=== PATIENT | female | born 1980 | race Caucasian/White ===

== ENCOUNTER 2020-08-07 03:31 | Emergency (ER) | payer OTHER ==
--- OUTSIDE RECORDS SUMMARY | 2020-08-07 03:33 | XMS REPORT | Continuity of Care Document ---
:1980 Author Organization [facility] t Address [address] [place] [address] Care Team Providers Name Role Phone Unavailable Unavailable Unavailable Payers Payer Name Policy Type Policy Number Effective Date Expiration Date S ource Problems This patient has no known problems. Allergies, Adverse Reactions, Alerts This patient has no known allergies or adverse reactions. Medications This patient has no known medications. Procedures This patient has no known procedures. Results This patient has no known results.
--- NOTE | 2020-08-07 04:41 | EDPHYS ---
Physician Documentation [facility] Name: Melissa Leavitt Age: 39 yrs Sex: Female : 1980 Arrival Date: 08/07/2020 Time: 03:35 Bed 17 Private MD: ED Physician Aj Guevara HPI: 08/07 04:26 This 39 yrs old Female presents to ER via Ambulatory with complaints of rn Anxiety. 04:26 The patient presents to the emergency department with anxiety. Onset: The rn symptoms/episode began/occurred just prior to arrival. Associated signs and symptoms: Pertinent positives; anxiety, Pertinent negatives: fever, hallucinations, homicidal ideation, suicide ideation. Severity of symptoms: At their worst the symptoms were moderate. The patient has experienced similar episodes in the past. The patient has been recently seen by a physician:. Reports woke up with panic attack, took xanax, didn't work immediately so called her psychiatrist and came here. Feels better and is sleepy, but is wondering if needs name brand xanax. She just saw her psychiatrist last week.. Historical: - Allergies: 03:50 PENICILLINS; em - PMHx: 03:50 None; em - PSHx: 03:50 Hysterectomy; em - Immunization history:: Adult Immunizations up to date. - Social history:: Smoking status: Patient denies any tobacco usage or history of. - Family history:: not pertinent. - Hospitalizations: : No recent hospitalization is reported. ROS: 04:26 Constitutional: Negative for fever, chills, and weight loss, Cardiovascular: Negative rn for chest pain, and edema, Respiratory: Negative for shortness of breath, cough, wheezing, and pleuritic chest pain, Abdomen/GI: Negative for abdominal pain, nausea, vomiting, diarrhea, and constipation, MS/Extremity: Negative for injury and deformity, Skin: Negative for injury, rash, and discoloration, Neuro: Negative for headache, weakness, numbness, tingling, and seizure, Psych: Negative for suicide ideation, homicidal ideation, and hallucinations. Exam: 04:26 Constitutional: This is a well developed, well nourished patient sleeping, have to rn wake her up to speak to her. Psych: Awake, slurred speech, normal affect Vital Signs: 03:45 BP 109 / 87; Pulse 106; Resp 18; Temp 97.8; Pulse Ox 99% on R/A; Weight 71.21 kg; em Height 5 ft. 6 in. (167.64 cm); Pain 0/10; 04:30 BP 108 / 77; Pulse 103; Resp 18 S; Pulse Ox 96% on R/A; ad5 03:45 Body Mass Index 25.34 (71.21 kg, 167.64 cm) em MDM: 03:44 Patient medically screened. rn 04:26 Differential diagnosis: depression, anxiety. Data reviewed: vital signs, nurses notes, rn and as a result, I will discharge patient. Counseling: I had a detailed discussion with the patient and/or guardian regarding: the historical points, exam findings, and any diagnostic results supporting the discharge/admit diagnosis, the need for outpatient follow up, to return to the emergency department if symptoms worsen or persist or if there are any questions or concerns that arise at home. Special discussion: I discussed with the patient/guardian in detail that at this point there is no indication for admission to the hospital. It is understood, however, that if the symptoms persist or worsen the patient needs to return immediately for re-evaluation. Based on the history and exam findings, there is no indication for further emergent testing or inpatient evaluation. I discussed with the patient/guardian the need to see the psychiatrist for further evaluation of the symptoms. ED course: Pt already sleeping and slurred speech after taking her own xanax, states has a ride, will not give any other medication since her panic attack is over, and recommend she sees her psychiatrist. . Administered Medications: No medications were administered Disposition: 08/07/20 04:39 Discharged to Home. Impression: Anxiety disorder, unspecified. - Condition is Stable. - Discharge Instructions: Panic Attacks, Generalized Anxiety Disorder. - Medication Reconciliation Form, Thank You Letter, Antibiotic Education, Prescription Opioid Use form. - Follow up: Nabor Quintanilla MD; When: As needed; Reason: Recheck today's complaints, Re-evaluation by your physician. - Problem is an ongoing problem. - Symptoms have improved. Signatures: Chema Piedra RN RN em Aj Guevara MD MD designer and patternmaker: (The following items were deleted from the chart) 04:45 04:39 08/07/2020 04:39 Discharged to Home. Impression: Anxiety disorder, unspecified. em Condition is Stable. Forms are Medication Reconciliation Form, Thank You Letter, Antibiotic Education, Prescription Opioid Use. Follow up: Nabor Quintanilla; When: As needed; Reason: Recheck today's complaints, Re-evaluation by your physician. Problem is an ongoing problem. Symptoms have improved. rn
--- NOTE | 2020-08-07 04:41 | ER ---
Nurse's Notes [facility] Name: Melissa Leavitt Age: 39 yrs Sex: Female : 1980 Arrival Date: 08/07/2020 Time: 03:35 Bed 17 Private MD: Diagnosis: Anxiety disorder, unspecified Presentation: 08/07 03:45 Chief complaint: Patient states: mother's anniversary is coming up, has to have a em hysterectomy done because she has several tumors, also has problems at work, has been feeling anxious and crying, also reports heart palpitations, denies HI/SI. Coronavirus screen: Client denies travel out of the [place] in the last 14 days. Ebola Screen: Patient negative for fever greater than or equal to 101.5 degrees Fahrenheit, and additional compatible Ebola Virus Disease symptoms Patient denies exposure to infectious person. Patient denies travel to an Ebola-affected area in the 21 days before illness onset. No symptoms or risks identified at this time. Initial Sepsis Screen: Does the patient meet any 2 criteria? No. Patient's initial sepsis screen is negative. Does the patient have a suspected source of infection? No. Patient's initial sepsis screen is negative. Risk Assessment: Do you want to hurt yourself or someone else? Patient reports no desire to harm self or others. Onset of symptoms was August 07, 2020. 03:45 Method Of Arrival: Ambulatory em 03:45 Acuity: FRIDA 3 em Historical: - Allergies: 03:50 PENICILLINS; em - PMHx: 03:50 None; em - PSHx: 03:50 Hysterectomy; em - Immunization history:: Adult Immunizations up to date. - Social history:: Smoking status: Patient denies any tobacco usage or history of. - Family history:: not pertinent. - Hospitalizations: : No recent hospitalization is reported. Screenin:01 Abuse screen: Denies threats or abuse. Denies injuries from another. Nutritional ad5 screening: No deficits noted. Tuberculosis screening: No symptoms or risk factors identified. Fall Risk None identified. Assessment: 03:51 General: Appears distressed, Behavior is cooperative, anxious, crying. Pain: Denies ad5 pain. Neuro: Level of Consciousness is awake, alert, obeys commands, Oriented to person, place, time, situation, Appropriate for age. Cardiovascular: Capillary refill < 3 seconds Patient's skin is warm and dry. Respiratory: Airway is patent Respiratory effort is even, unlabored, Respiratory pattern is regular, symmetrical. GI: No deficits noted. No signs and/or symptoms were reported involving the gastrointestinal system. : No deficits noted. No signs and/or symptoms were reported regarding the genitourinary system. EENT: No deficits noted. No signs and/or symptoms were reported regarding the EENT system. Derm: Skin is pink, warm \T\ dry. Musculoskeletal: No deficits noted. No signs and/or symptoms reported regarding the musculoskeletal system. 03:52 Reassessment: Pt reports increased anxiety d/t stressors of work, family, and health. ad5 Denies SI/HI. Pt tearful, cooperative with staff. Reports taking alprazolam at home with minimal relief. 04:40 Reassessment: Patient appears in no apparent distress at this time. Patient is alert, ad5 oriented x 3, equal unlabored respirations, skin warm/dry/pink. General: Appears in no apparent distress. Behavior is calm, cooperative, appropriate for age. Vital Signs: 03:45 BP 109 / 87; Pulse 106; Resp 18; Temp 97.8; Pulse Ox 99% on R/A; Weight 71.21 kg; em Height 5 ft. 6 in. (167.64 cm); Pain 0/10; 04:30 BP 108 / 77; Pulse 103; Resp 18 S; Pulse Ox 96% on R/A; ad5 03:45 Body Mass Index 25.34 (71.21 kg, 167.64 cm) em ED Course: 03:35 Patient arrived in ED. bp1 03:43 Avery Leal is Primary Nurse. ad5 03:44 Aj Guevara MD is Attending Physician. rn 03:49 Patient has correct armband on for positive identification. Bed in low position. Call ad5 light in reach. Side rails up X 1. Pulse ox on. NIBP on. Door closed. Noise minimized. Warm blanket given. 03:50 Triage completed. em 03:50 Arm band placed on. em 04:36 No provider procedures requiring assistance completed. Patient did not have IV access em during this emergency room visit. 04:39 Nabor Quintanilla MD is Referral Physician. rn Administered Medications: No medications were administered Outcome: 04:39 Discharge ordered by . rn 04:45 Discharged to home ambulatory. em 04:45 Condition: stable 04:45 Discharge instructions given to patient, Instructed on discharge instructions, follow up and referral plans. Demonstrated understanding of instructions, follow-up care. 04:45 Patient left the ED. em Signatures: Chema Piedra RN RN em Nieto, Roman, MD MD rn Paniauga, Brittany bp1 Davidson, Andrea ad5
[2020-08-07 04:53] VITALS: BP 109/87; TEMP 97.8; O2SAT 99
== END 2020-08-07 04:45 | disposition home or self-care (01) ==
LOC: ER 03:31
DX: F41.9 Anxiety disorder, unspecified (principal); Z88.0 Allergy status to penicillin

== ENCOUNTER 2020-08-26 22:05 | Emergency (ER) | payer OTHER ==
--- OUTSIDE RECORDS SUMMARY | 2020-08-26 22:13 | XMS REPORT | Continuity of Care Document ---
:1980 Author Organization [facility] t Address [address] [place] [address] Care Team Providers Name Role Phone Unavailable [...]
--- NOTE | 2020-08-26 22:42 | ER ---
Nurse's Notes [facility] Name: Melissa Leavitt Age: 39 yrs Sex: Female : 1980 Arrival Date: 08/26/2020 Time: 22:06 Bed Waiting Private MD: Diagnosis: ED Course: 08/26 22:06 Patient arrived in ED. ag3 22:41 Patient's name was called from ER lobby. No response. Unable to locate patient. Will bb disposition as left without being seen by a provider. Administered Medications: No medications were administered Outcome: 22:41 Patient left the ED. bb Signatures: Samantha Nogueira RN RN bb Monica Junior ag3
== END 2020-08-26 22:41 | disposition left against medical advice (07) ==
LOC: ER 22:05
DX: Z02.9 Encounter for administrative examinations, unspecified (principal)

== ENCOUNTER 2020-11-28 11:00 | Emergency (ER) | payer OTHER ==
--- NOTE | 2020-11-28 11:43 | EDPHYS ---
Physician Documentation [facility] Name: Melissa Leavitt Age: 40 yrs Sex: Female : 1980 Arrival Date: 11/28/2020 Time: 11:06 Bed 25 Private MD: ED Physician Aj Guevara HPI: 11/28 11:53 This 40 yrs old Female presents to ER via Ambulatory with complaints of Right pm1 Leg Swelling. 11:53 the patient presents with a swollen area of the right voss. Description: raised. Onset: pm1 The symptoms/episode began/occurred yesterday. Possible cause(s): Picking and squeezing at right voss area. Patient reports that she has possible cyst at location. Associated signs and symptoms: Pertinent positives: swelling, Pertinent negatives: discharge, fever. Modifying factors: the symptoms are alleviated by nothing, the symptoms are aggravated by touching, Squeezing and scratching. Severity of symptoms: in the emergency department the symptoms are unchanged. The patient has not experienced similar symptoms in the past. The patient has not recently seen a physician. Historical: - Allergies: 11:22 PENICILLINS; ll1 - PMHx: 11:22 None; ll1 - PSHx: 11:22 hysterectomy; ll1 - Immunization history:: Client reports receiving the 1st dose of the Covid vaccine. - Social history:: Smoking status: Patient reports the use of cigarette tobacco products, denies chronic smoking, but will smoke occasionally. ROS: 11:53 Constitutional: Negative for fever, chills, and weight loss, Cardiovascular: Negative pm1 for chest pain, palpitations, and edema, Respiratory: Negative for shortness of breath, cough, wheezing, and pleuritic chest pain, MS/Extremity: Negative for injury and deformity. 11:53 Neuro: Negative for headache, weakness, numbness, tingling, and seizure. 11:53 Skin: Positive for abrasion(s), of the right voss. 11:53 All other systems are negative. Exam: 11:53 Constitutional: This is a well developed, well nourished patient who is awake, alert, pm1 and in no acute distress. Head/Face: Normocephalic, atraumatic. 11:53 Cardiovascular: Exam negative for acute changes, Rate: normal, Rhythm: regular, Pulses: no pulse deficits are appreciated. 11:53 Respiratory: Exam negative for acute changes, respiratory distress, shortness of breath. 11:53 Abdomen/GI: Exam negative for acute changes, Inspection: abdomen appears normal, Palpation: abdomen is soft and non-tender, in all quadrants. 11:53 Skin: Appearance: normal except for affected area, swelling, noted on the right voss, Mild and located underneath abrasion. 11:53 Neuro: Exam negative for acute changes, Orientation: is normal, Motor: is normal, moves all fours. 12:15 Skin: Patient's area of abrasion and swelling needle aspirated, no purulent drainage pm1 present. Vital Signs: 11:21 BP 123 / 92; Pulse 92; Resp 17; Temp 98.2; Pulse Ox 97% ; Weight 77.11 kg; Height 5 ft. ll1 6 in. (167.64 cm); Pain 03/02; 11:21 Body Mass Index 27.44 (77.11 kg, 167.64 cm) ll1 MDM: 11:40 Data reviewed: vital signs. Data interpreted: Pulse oximetry: on room air is 97 %. pm1 Interpretation: normal. Counseling: I had a detailed discussion with the patient and/or guardian regarding: the historical points, exam findings, and any diagnostic results supporting the discharge/admit diagnosis, the need for outpatient follow up, to return to the emergency department if symptoms worsen or persist or if there are any questions or concerns that arise at home. 11:43 Patient medically screened. pm1 Administered Medications: No medications were administered Disposition: 17:31 Co-signature as Attending Physician, Aj Guevara MD I agree with the assessment and rn plan of care. Disposition Summary: 11/28/20 11:43 Discharge Ordered Location: Home pm1 Problem: new pm1 Symptoms: have improved pm1 Condition: Stable pm1 Diagnosis - Phlegmon of right lower extremity pm1 - Abrasion, left lower leg pm1 Followup: pm1 - With: Emergency Department - When: As needed - Reason: Worsening of condition Followup: pm1 - With: Private Physician - When: 2 - 3 days - Reason: Recheck today's complaints, Continuance of care, Re-evaluation by your physician Discharge Instructions: - Discharge Summary Sheet pm1 - Abrasion pm1 Forms: - Medication Reconciliation Form pm1 - Thank You Letter pm1 - Antibiotic Education pm1 - Prescription Opioid Use pm1 Prescriptions: - mupirocin 2 % Topical ointment - apply 1 application by TOPICAL route 3 times per day for 10 days; 1 tube; pm1 Refills: 0, Product Selection Permitted - Bactrim DS 800-160 mg Oral Tablet - take 1 tablet by ORAL route every 12 hours for 10 days; 20 tablet; Refills: 0, pm1 Product Selection Permitted Signatures: Aj Guevara MD MD rn Marinas, Patrick, NP [employer] SUPERVISOR pm1 Priscilla Phillips RN RN ll1
--- NOTE | 2020-11-28 11:43 | ER ---
Nurse's Notes [facility] Name: Melissa Leavitt Age: 40 yrs Sex: Female : 1980 Arrival Date: 11/28/2020 Time: 11:06 Bed 25 Private MD: Diagnosis: Phlegmon of right lower extremity;Abrasion, left lower leg Presentation: 11/28 11:21 Chief complaint: Patient states: Picking at RLE yesterday, top layer of skin came off. ll1 Pain, redness, swelling to small spot on RLE today. Coronavirus screen: Vaccine status: Patient reports receiving the 1st dose of the Covid vaccine. Client denies travel out of the [place] in the last 14 days. At this time, the client does not indicate any symptoms associated with coronavirus-19. Ebola Screen: Patient denies travel to an Ebola-affected area in the 21 days before illness onset. Initial Sepsis Screen: Does the patient meet any 2 criteria? HR > 90 bpm. No. Patient's initial sepsis screen is negative. Does the patient have a suspected source of infection? Yes: Skin breakdown/wound. Risk Assessment: Do you want to hurt yourself or someone else? Patient reports no desire to harm self or others. Onset of symptoms was November 27, 2020. 11:21 Method Of Arrival: Ambulatory ll1 11:21 Acuity: FRIDA 4 ll1 Triage Assessment: 11:43 General: Appears in no apparent distress. Behavior is calm, cooperative, appropriate oh for age. Historical: - Allergies: 11:22 PENICILLINS; ll1 - PMHx: 11:22 None; ll1 - PSHx: 11:22 hysterectomy; ll1 - Immunization history:: Client reports receiving the 1st dose of the Covid vaccine. - Social history:: Smoking status: Patient reports the use of cigarette tobacco products, denies chronic smoking, but will smoke occasionally. Screenin:42 Abuse screen: Denies threats or abuse. Nutritional screening: No deficits noted. oh Tuberculosis screening: No symptoms or risk factors identified. Fall Risk None identified. Assessment: 11:39 Derm: small papular like spot on lower right leg. pt states when she bends she feels a oh raise. pt reports minimal swelling in that area Reports. Vital Signs: 11:21 BP 123 / 92; Pulse 92; Resp 17; Temp 98.2; Pulse Ox 97% ; Weight 77.11 kg; Height 5 ft. ll1 6 in. (167.64 cm); Pain 1/10; 11:21 Body Mass Index 27.44 (77.11 kg, 167.64 cm) 1 ED Course: 11:06 Patient arrived in ED. ja2 11:22 Triage completed. ll1 11:23 Arm band placed on Patient placed in an exam room, on a stretcher. ll1 11:26 Casey Palencia NP is PHCP. pm1 11:26 Aj Guevara MD is Attending Physician. pm1 11:28 Juliann Pat, RN is Primary Nurse. oh 11:43 Bed in low position. Call light in reach. oh 11:56 Patient did not have IV access during this emergency room visit. oh Administered Medications: No medications were administered Outcome: 11:43 Discharge ordered by MD. pm1 11:56 Discharged to home oh 11:56 Condition: good 11:56 Discharge instructions given to patient, Prescriptions given X 2. 11:56 Patient left the ED. oh Signatures: Casey Palencia NP SUB ASSEMBLY TEAM WORKER pm1 Priscilla Phillips, RN RN 1 Jennifer Loving 2 Juliann Pat, RN RN oh
[2020-11-28 12:02] VITALS: BP 123/92; TEMP 98.2; O2SAT 97
== END 2020-11-28 11:56 | disposition home or self-care (01) ==
LOC: ER 11:00
DX: L02.415 Cutaneous abscess of right lower limb (principal); S80.812A Abrasion, left lower leg, initial encounter; X58.XXXA Exposure to other specified factors, initial encounter; Y93.9 Activity, unspecified; Z88.0 Allergy status to penicillin; F17.210 Nicotine dependence, cigarettes, uncomplicated
CPT/HCPCS: 99282

== ENCOUNTER 2020-12-03 07:59 | Emergency (ER) | payer OTHER ==
[2020-12-03 08:57] LABS: Absolute Lymphocytes (CBC) 1.9 K/uL (0.7-4.9); Hematocrit 42.1 % (36.0-45.0); Lymphocytes % 30.1 % (15.3-44.8); MPV 7.3 fL (7.6-11.3)
[2020-12-03 09:04] LABS: Protime INR 0.91
--- NOTE | 2020-12-03 09:17 | RAD REPORT ---
EXAM DESCRIPTION: RAD - Chest Single View - 12/03/2020 9:08 am CLINICAL HISTORY: PALPITATIONS COMPARISON: No comparisons FINDINGS: Lines: None. Lungs: No evidence of edema or pneumonia. Pleural: No significant pleural effusions or pneumothorax. Cardiac: The heart size is within normal limits. Bones: No acute fractures. Other: IMPRESSION: No acute cardiopulmonary disease.
[2020-12-03 09:18] LABS: ALT/SGPT 24 U/L (12-78); AST/SGOT 16 U/L (15-37); Albumin 3.9 g/dL (3.4-5.0); Alkaline Phosphatase 80 U/L (45-117); BUN Blood Urea Nitrogen 15 mg/dL (7-18); Bicarbonate 29 mmol/L (21-32); Bilirubin Direct < 0.1 mg/dL (0-0.2); Bilirubin Total 0.3 mg/dL (0.2-1.0); Glucose Level 103 mg/dL (74-106); Magnesium 2.3 mg/dL (1.8-2.4); NT PRO-BNP 68 pg/mL (<125); Potassium 3.6 mmol/L (3.5-5.1); Protein, Total 7.4 g/dL (6.4-8.2); Sodium Level 138 mmol/L (136-145); Troponin (Emerg Dept Use Only) < 0.02 ng/mL (0.0-0.045)
--- NOTE | 2020-12-03 09:22 | ER ---
Nurse's Notes [facility] Name: Melissa Leavitt Age: 40 yrs Sex: Female : 1980 Arrival Date: 12/03/2020 Time: 08:02 Bed 5 Private MD: Diagnosis: Palpitations;Anxiety disorder, unspecified Presentation: 12/03 08:25 Chief complaint: Patient states: 7:40 am today while getting to her first job site, she ll1 had sudden onset of feeling shaky, fast HR, chest pressure, sweaty. States she has a psychiatry appt at 10 she needs to get to. Coronavirus screen: Vaccine status: Patient reports receiving the 2nd dose of the covid vaccine. Client denies travel out of the [place] in the last 14 days. At this time, the client does not indicate any symptoms associated with coronavirus-19. Ebola Screen: Patient denies travel to an Ebola-affected area in the 21 days before illness onset. Initial Sepsis Screen: Does the patient meet any 2 criteria? No. Patient's initial sepsis screen is negative. Does the patient have a suspected source of infection? No. Patient's initial sepsis screen is negative. Risk Assessment: Do you want to hurt yourself or someone else? Patient reports no desire to harm self or others. Onset of symptoms was December 03, 2020. 08:25 Method Of Arrival: Ambulatory 1 08:25 Acuity: FRIDA 3 ll1 Triage Assessment: 08:30 General: Appears in no apparent distress. Behavior is calm, cooperative, appropriate ll1 for age. Pain: Complains of pain in chest Pain currently is 1 out of 10 on a pain scale. Quality of pain is described as aching, pressure, Pain began 1 hour ago. Neuro: No deficits noted. Cardiovascular: Reports chest pain, Heart tones S1 S2. Respiratory: Breath sounds are clear bilaterally. the patient has mild shortness of breath. GI: No deficits noted. 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 - Social history:: Smoking status: Patient reports the use of cigarette tobacco products, denies chronic smoking, but will smoke occasionally. Screenin:29 Abuse screen: Denies threats or abuse. Nutritional screening: No deficits noted. ll1 Tuberculosis screening: No symptoms or risk factors identified. 08:30 Fall Risk IV access (20 points). Total Amato Fall Scale indicates No Risk (0-24 pts). ll1 Assessment: 09:10 Reassessment: Patient and/or family updated on plan of care and expected duration. Pain ap3 level reassessed. Patient is alert, oriented x 3, equal unlabored respirations, skin warm/dry/pink. 09:34 Reassessment: No changes from previously documented assessment. Patient and/or family ll1 updated on plan of care and expected duration. Pain level reassessed. Patient is alert, oriented x 3, equal unlabored respirations, skin warm/dry/pink. Vital Signs: 08:25 BP 138 / 96; Pulse 92; Resp 18; Temp 98.5; Pulse Ox 98% ; Weight 76.2 kg; Height 5 ft. ll1 6 in. (167.64 cm); Pain 1/10; 09:10 BP 132 / 92; Pulse 89; Resp 18; Pulse Ox 96% on R/A; ap3 09:35 BP 139 / 90; Pulse 88; Resp 17; Pulse Ox 97% on R/A; Pain 0/10; ll1 08:25 Body Mass Index 27.12 (76.20 kg, 167.64 cm) ll1 ED Course: 08:02 Patient arrived in ED. mr 08:19 Hakeem Noble MD is Attending Physician. kdr 08:24 Priscilla Phillips RN is Primary Nurse. ll1 08:24 Arm band placed on Patient placed in an exam room, on a stretcher. ll1 08:27 Triage completed. ll1 08:29 Patient has correct armband on for positive identification. Bed in low position. Call ll1 light in reach. Side rails up X 1. secured entrance monitor on. Pulse ox on. NIBP on. 08:40 Inserted saline lock: 22 gauge in left antecubital area, using aseptic technique. Blood ll1 collected. 09:05 Warm blanket given. Pillow given. mh5 09:07 XRAY Chest (1 view) In Process Unspecified. EDMS 09:35 No provider procedures requiring assistance completed. IV discontinued, intact, ll1 bleeding controlled, No redness/swelling at site. Pressure dressing applied. Administered Medications: No medications were administered Outcome: 09:21 Discharge ordered by . paula 09:36 Discharged to home ambulatory. 1 09:36 Condition: stable 09:36 Discharge instructions given to patient, Instructed on discharge instructions, follow up and referral plans. Demonstrated understanding of instructions, follow-up care. 09:36 Patient left the ED. 1 Signatures: Dispatcher [employer] EDMS Hakeem Noble MD MD kdr Rivera, Mary mr Martinez, Maria [facility] Carolyn Parham, RN RN Priscilla Gonzalez, RN RN ll1
--- NOTE | 2020-12-03 09:22 | EDPHYS ---
Physician Documentation [facility] Name: Melissa Leavitt Age: 40 yrs Sex: Female : 1980 Arrival Date: 12/03/2020 Time: 08:02 Bed 5 Private MD: ED Physician Hakeem Noble HPI: 12/03 08:36 This 40 yrs old Female presents to ER via Ambulatory with complaints of Heart kdr Racing. 08:36 The patient presents with a history of heart racing. Context: The symptoms occur at kdr rest, Patient was driving to work when she became anxious and felt like her heart was racing. Since then her symptoms have waxed and waned. She has an appointment in 10 AM this morning with her psychiatrist. Onset: The symptoms/episode began/occurred suddenly, just prior to arrival, this morning. Duration: The patient or guardian reports multiple episodes, that are intermittent, that wax and wane, with no pattern. Modifying factors: The symptoms are aggravated by nothing. The symptoms are alleviated by nothing. Associated signs and symptoms: Pertinent positives: lightheadedness, SOB. Severity of symptoms: At their worst the symptoms were mild in the emergency department the symptoms have improved mildly. The patient has not experienced similar symptoms in the past, Patient denies similar episodes in the past. She does have anxiety and depression concerns but this seems different this morning. The patient has not recently seen a physician. 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 - Social history:: Smoking status: Patient reports the use of cigarette tobacco products, denies chronic smoking, but will smoke occasionally. ROS: 08:36 Constitutional: Negative for fever, chills, and weight loss, Eyes: Negative for injury, kdr pain, redness, and discharge, ENT: Negative for injury, pain, and discharge, Neck: Negative for injury, pain, and swelling, Respiratory: Negative for shortness of breath, cough, wheezing, and pleuritic chest pain, Abdomen/GI: Negative for abdominal pain, nausea, vomiting, diarrhea, and constipation, Back: Negative for injury and pain, : Negative for injury, bleeding, discharge, and swelling, MS/Extremity: Negative for injury and deformity, Skin: Negative for injury, rash, and discoloration, Neuro: Negative for headache, weakness, numbness, tingling, and seizure activity. Psych: Negative for depression, anxiety, suicide ideation, homicidal ideation, and hallucinations, Allergy/Immunology: Negative for hives, rash, and allergies, Endocrine: Negative for neck swelling, polydipsia, polyuria, polyphagia, and marked weight changes, Hematologic/Lymphatic: Negative for swollen nodes, abnormal bleeding, and unusual bruising. 08:36 Cardiovascular: Positive for palpitations, Negative for edema, orthopnea, paroxysmal nocturnal dyspnea. Exam: 08:36 Constitutional: This is a well developed, well nourished patient who is awake, alert, kdr and in no acute distress. Head/Face: Normocephalic, atraumatic. Eyes: Pupils equal round and reactive to light, extra-ocular motions intact. Lids and lashes normal. Conjunctiva and sclera are non-icteric and not injected. Cornea within normal limits. Periorbital areas with no swelling, redness, or edema. Neck: Trachea midline, no thyromegaly or masses palpated, and no cervical lymphadenopathy. Supple, full range of motion without nuchal rigidity, or vertebral point tenderness. No Meningismus. Chest/axilla: Normal chest wall appearance and motion. Nontender with no deformity. No lesions are appreciated. Cardiovascular: Regular rate and rhythm with a normal S1 and S2. No gallops, murmurs, or rubs. Normal PMI, no JVD. No pulse deficits. Respiratory: Lungs have equal breath sounds bilaterally, clear to auscultation and percussion. No rales, rhonchi or wheezes noted. No increased work of breathing, no retractions or nasal flaring. Abdomen/GI: Soft, non-tender, with normal bowel sounds. No distension or tympany. No guarding or rebound. No evidence of tenderness throughout. Back: No spinal tenderness. No costovertebral tenderness. Full range of motion. Skin: Warm, dry with normal turgor. Normal color with no rashes, no lesions, and no evidence of cellulitis. MS/ Extremity: Pulses equal, no cyanosis. Neurovascular intact. Full, normal range of motion. Neuro: Awake and alert, GCS 15, oriented to person, place, time, and situation. Cranial nerves II-XII grossly intact. Motor strength 5/5 in all extremities. Sensory grossly intact. Cerebellar exam normal. Normal gait. Psych: Awake, alert, with orientation to person, place and time. Behavior, mood, and affect are within normal limits. Vital Signs: 08:25 BP 138 / 96; Pulse 92; Resp 18; Temp 98.5; Pulse Ox 98% ; Weight 76.2 kg; Height 5 ft. ll1 6 in. (167.64 cm); Pain 1/10; 09:10 BP 132 / 92; Pulse 89; Resp 18; Pulse Ox 96% on R/A; ap3 09:35 BP 139 / 90; Pulse 88; Resp 17; Pulse Ox 97% on R/A; Pain 0/10; ll1 08:25 Body Mass Index 27.12 (76.20 kg, 167.64 cm) ll1 MDM: 08:36 Data reviewed: vital signs, nurses notes, lab test result(s), EKG, radiologic studies. kdr Counseling: I had a detailed discussion with the patient and/or guardian regarding: the historical points, exam findings, and any diagnostic results supporting the discharge/admit diagnosis, lab results, radiology results, the need for outpatient follow up. 09:21 Patient medically screened. kdr 09:27 ED course: Was stable in the emergency department. She appeared to be mildly anxious kdr but otherwise without any further complaints or concerns. She has an appointment at 10 AM today with her psychiatrist and will be discharged for follow-up there.. 12/03 08:21 Order name: Basic Metabolic Panel kdr 12/03 08:21 Order name: CBC with Diff; Complete Time: 09:21 kdr 12/03 08:21 Order name: LFT's; Complete Time: 09:21 kdr 12/03 08:21 Order name: Magnesium; Complete Time: 09:21 kdr 12/03 08:21 Order name: NT PRO-BNP; Complete Time: 09:21 kdr 12/03 08:21 Order name: PT-INR; Complete Time: 09:21 kdr 12/03 08:21 Order name: Troponin (emerg Dept Use Only); Complete Time: 09: kdr 12/03 08:21 Order name: XRAY Chest (1 view); Complete Time: : kdr 12/03 08:21 Order name: EKG; Complete Time: 08: kdr 12/03 08:21 Order name: Cardiac monitoring; Complete Time: kdr 12/03 08:21 Order name: EKG - Nurse/Tech; Complete Time: : kdr 12/03 08:21 Order name: IV Saline Lock; Complete Time: : kdr 12/03 08:21 Order name: Labs collected and sent; Complete Time: kdr 12/03 08:22 Order name: Basic Metabolic Panel; Complete Time: : EDMS 12/03 08:21 Order name: O2 Per Protocol; Complete Time: : kdr 12/03 08:21 Order name: O2 Sat Monitoring; Complete Time: kdr Administered Medications: No medications were administered Disposition Summary: 12/03/20 09:21 Discharge Ordered Location: Home kdr Problem: new kdr Symptoms: have improved kdr Condition: Stable kdr Diagnosis - Palpitations kdr - Anxiety disorder, unspecified kdr Followup: kdr - With: Private Physician - When: 2 - 3 days - Reason: If symptoms return, Further diagnostic work-up, Recheck today's complaints, Continuance of care, Re-evaluation by your physician Discharge Instructions: - Discharge Summary Sheet kdr - Palpitations kdr - Generalized Anxiety Disorder, Adult kdr Forms: - Medication Reconciliation Form kdr - Thank You Letter kdr - Work release form bd Signatures: Dispatcher [employer] Hakeem John MD MD kdr Priscilla Phillips RN RN ll1
[2020-12-03 09:55] VITALS: TEMP 98.5
[2020-12-03 10:06] VITALS: BP 139/90; O2SAT 97
== END 2020-12-03 09:36 | disposition home or self-care (01) ==
LOC: ER 07:59
DX: F41.9 Anxiety disorder, unspecified (principal); F17.210 Nicotine dependence, cigarettes, uncomplicated; Z88.0 Allergy status to penicillin
CPT/HCPCS: 36415; 71045; 80048; 80076; 83735; 83880; 84484; 85025; 85610; 93005; 99284

== ENCOUNTER 2020-12-06 20:22 | Emergency (ER) | payer OTHER ==
[2020-12-06] MEDS ORDERED: DIAZEPAM 5 MG TABLET ONE (22:15)
--- NOTE | 2020-12-06 22:38 | ER ---
Nurse's Notes [facility] Name: Melissa Leavitt Age: 40 yrs Sex: Female : 1980 Arrival Date: 12/06/2020 Time: 20:23 Bed 16 Private MD: Diagnosis: Acute stress reaction-Grieving Presentation: 12/06 21:03 Chief complaint: Patient states: Father today, reports mother last month, lp1 having financial issues; Denies SI and HI; Reports "I just don't want to be alone right now". Coronavirus screen: At this time, the client does not indicate any symptoms associated with coronavirus-19. Ebola Screen: No symptoms or risks identified at this time. Initial Sepsis Screen: Does the patient meet any 2 criteria? No. Patient's initial sepsis screen is negative. Does the patient have a suspected source of infection? No. Patient's initial sepsis screen is negative. Risk Assessment: Do you want to hurt yourself or someone else? Patient reports no desire to harm self or others. Onset of symptoms was December 06, 2020. 21:03 Method Of Arrival: Ambulatory lp1 21:03 Acuity: FRIDA 3 lp1 Triage Assessment: 21:39 General: Appears comfortable, well groomed, Behavior is cooperative, anxious, crying. 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 - Social history:: Smoking status: Patient reports the use of cigarette tobacco products, denies chronic smoking, but will smoke occasionally, Patient/guardian denies using street drugs. Screenin:04 Abuse screen: Denies threats or abuse. Denies injuries from another. Nutritional lp1 screening: No deficits noted. Tuberculosis screening: No symptoms or risk factors identified. Fall Risk None identified. Assessment: 21:33 Reassessment: Pt reports feeling "overwhelmed and stressed" d/t fathers suicide last bc5 night. "I lost my mother 2 months ago" Pt states the reason why she is here is because the Xanax she received is "made by a soil and plant scientist who's formula doesn't work.... I need something to calm me down now" denies SI/HI, V/A/T hallucinations at this time. A\\T\\O x 3, RR is even and unlabored, speaking in clear and complete sentences at this time. Pain: Denies pain. Neuro: No deficits noted. Cardiovascular: No deficits noted. Respiratory: No deficits noted. GI: No deficits noted. : No deficits noted. EENT: No deficits noted. Derm: No deficits noted. Musculoskeletal: No deficits noted. 12/07 00:00 Reassessment: Pt called friend to drive her home. bc5 Psych: 12/06 22:41 [place] Suicide Severity Screening: In the past month, have you wished you were bc5 or wished you could go to sleep and not wake up? Patient responds "No." "In the past month, have you actually had any thoughts of killing yourself?" Patient responds "no." "In your lifetime, have you ever done anything, started to do anything, or prepared to do anything to end your life?" Patient responds "no.". Subjective: Patient's mood is sad. Objective: Patient is cooperative, Speech is normal, Affect is appropriate, Patient has mutilated themselves by NA. Interventions: Patient placed in hospital gown. Safety Checks: Personal items have been removed. Door is open. Pt denies substance abuse. Commitment: NA. Vital Signs: 21:04 BP 138 / 100; Pulse 127; Resp 18; Temp 97; Pulse Ox 100% on R/A; Weight 79.38 kg (R); lp1 Height 5 ft. 6 in. (167.64 cm); Pain 0/10; 22:40 BP 117 / 86; Pulse 88; Resp 16; Temp 98.1(O); Pulse Ox 96% on R/A; Pain 0/10; bc5 21:04 Body Mass Index 28.25 (79.38 kg, 167.64 cm) lp1 ED Course: 20:23 Patient arrived in ED. bp1 20:42 Casey Palencia NP is PHCP. pm1 20:42 Ricardo Nagel MD is Attending Physician. pm1 20:45 Safety checks: Items removed: yes. Door open/sign placed on door: yes. Family/friend [facility] present: no. Sitter present: Yes. 21:04 Triage completed. lp1 21:05 Arm band placed on left wrist. lp1 21:06 Diane Rolon, RN is Primary Nurse. bc5 21:12 Patient has correct armband on for positive identification. Placed in gown. Bed in low mh5 position. Warm blanket given. Pillow given. Pulse ox on. NIBP on. 21:39 No provider procedures requiring assistance completed. bc5 23:59 Patient did not have IV access during this emergency room visit. bc5 Administered Medications: 22:02 CANCELLED (Not availablee): Valium (diazepam) 2 mg PO once pm1 22:04 Drug: Valium (diazepam) 2.5 mg Route: PO; 5 22:39 Follow up: Response: Anxiety decreased 5 Outcome: 22:38 Discharge ordered by MD. pm1 22:41 Condition: improved bc5 23:59 Discharged to home ambulatory, with family. 5 23:59 Discharge instructions given to patient, Instructed on discharge instructions, follow up and referral plans. medication usage. 12/07 00:00 Patient left the ED. 5 Signatures: Rosa Vasques, ELISA RN lp1 Casey Palencia, CRUSHING FOREMAN CRUSHING FOREMAN pm1 Dianne Buck 5 Dania Flowers Bella, RN RN 5
--- NOTE | 2020-12-06 22:38 | EDPHYS ---
Physician Documentation [facility] Name: Melissa Leavitt Age: 40 yrs Sex: Female : 1980 Arrival Date: 12/06/2020 Time: 20:23 Bed 16 Private MD: ED Physician Ricardo Nagel HPI: 12/06 21:34 This 40 yrs old Female presents to ER via Ambulatory with complaints of pm1 Anxiety. 21:34 The patient presents to the emergency department with anxiety, over a , the pm1 patient's father. Onset: The symptoms/episode began/occurred yesterday. Past psychiatric history: Prior diagnosis: depression, Anxiety, Psychiatric medications include: Xanax, Lamictal, Cymbalta. Associated signs and symptoms: Pertinent positives; anxiety, Pertinent negatives: hallucinations, homicidal ideation, substance abuse, suicide ideation. Severity of symptoms: in the emergency department the symptoms are worse. The patient has been recently seen by a physician:. 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 - Social history:: Smoking status: Patient reports the use of cigarette tobacco products, denies chronic smoking, but will smoke occasionally, Patient/guardian denies using street drugs. ROS: 21:34 Constitutional: Negative for fever, chills, and weight loss, Cardiovascular: Negative pm1 for chest pain, palpitations, and edema, Respiratory: Negative for shortness of breath, cough, wheezing, and pleuritic chest pain, Neuro: Negative for headache, weakness, numbness, tingling, and seizure. 21:34 Psych: Positive for anxiety, Negative for homicidal ideation, suicide gesture, suicidal ideation. 21:34 All other systems are negative. Exam: 21:34 Constitutional: This is a well developed, well nourished patient who is awake, alert, pm1 and in no acute distress. Head/Face: Normocephalic, atraumatic. 21:34 Skin: Warm, dry with normal turgor. Normal color with no rashes, no lesions, and no evidence of cellulitis. MS/ Extremity: Pulses equal, no cyanosis. Neurovascular intact. Full, normal range of motion. 21:34 Cardiovascular: Exam negative for acute changes, Rate: normal, Rhythm: regular, Pulses: no pulse deficits are appreciated. 21:34 Respiratory: Exam negative for acute changes, respiratory distress, shortness of breath. 21:34 Neuro: Exam negative for acute changes, Orientation: is normal, Mentation: is normal, Motor: is normal, moves all fours. 21:34 Psych: Behavior/mood is anxious, depressed, Affect is Tearful. Oriented to person, place, time, Patient has no thoughts/intents to harm self or others. Vital Signs: 21:04 BP 138 / 100; Pulse 127; Resp 18; Temp 97; Pulse Ox 100% on R/A; Weight 79.38 kg (R); lp1 Height 5 ft. 6 in. (167.64 cm); Pain 0/10; 22:40 BP 117 / 86; Pulse 88; Resp 16; Temp 98.1(O); Pulse Ox 96% on R/A; Pain 0/10; bc5 21:04 Body Mass Index 28.25 (79.38 kg, 167.64 cm) lp1 MDM: 20:42 Patient medically screened. pm1 22:02 ED course: Valium 2 mg not available in the [facility]. Nurse gave 2.5 mg (5 mg pill cut in pm1 half). 22:37 Data reviewed: vital signs. Data interpreted: Pulse oximetry: on room air is 100 %. pm1 Interpretation: normal. Counseling: I had a detailed discussion with the patient and/or guardian regarding: the historical points, exam findings, and any diagnostic results supporting the discharge/admit diagnosis, the need for outpatient follow up, a family practitioner, a psychiatrist, to return to the emergency department if symptoms worsen or persist or if there are any questions or concerns that arise at home. 12/06 21:01 Order name: EKG; Complete Time: 21:02 pm1 Administered Medications: 22:02 CANCELLED (Not availablee): Valium (diazepam) 2 mg PO once pm1 22:04 Drug: Valium (diazepam) 2.5 mg Route: PO; bc5 22:39 Follow up: Response: Anxiety decreased bc5 Disposition: 12/07 05:46 Co-signature as Attending Physician, Ricardo Nagel MD. [facility] Disposition Summary: 12/06/20 22:38 Discharge Ordered Location: Home pm1 Problem: new pm1 Symptoms: have improved pm1 Condition: Stable pm1 Diagnosis - Acute stress reaction - Grieving pm1 Followup: pm1 - With: Emergency Department - When: As needed - Reason: Worsening of condition Followup: pm1 - With: Private Physician - When: 2 - 3 days - Reason: Recheck today's complaints, Continuance of care, Re-evaluation by your physician Discharge Instructions: - Discharge Summary Sheet pm1 - Stress, Adult pm1 - Managing Anxiety, Adult pm1 Forms: - Medication Reconciliation Form pm1 - Thank You Letter pm1 - Work release form pm1 - Antibiotic Education pm1 - Prescription Opioid Use pm1 Signatures: Dispatcher [employer] EDMS Rosa Vasques RN RN 1 Casey Palencia, FUNCTIONAL SUPPORT ANALYST FUNCTIONAL SUPPORT ANALYST 1 Ricardo Nagel MD MD [facility] Diane Rolon RN RN [facility] Corrections: (The following items were deleted from the chart) 12/06 21:44 21:01 EKG - Nurse/Tech ordered. pm1 pm1 21:44 21:01 Urine Dipstick-Ancillary ordered. pm1 pm1 21:45 21:01 Suicide Screening ([place]) ordered. pm1 pm1 21:45 21:01 Urine Test ordered. pm1 pm1 21:45 21:02 Acetaminophen Level ordered. EDMD EDMS :45 21:02 CBC with Automated Diff ordered. EDMS EDMS 22:02 21:34 Valium (diazepam) 2 mg PO once ordered. pm1 pm1 22:03 21:01 IV Saline Lock ordered. pm1 bc5 22:03 21:01 Labs collected and sent ordered. pm1 bc5 22:03 21:01 Suicide Precautions ordered. pm1 bc5 22:03 21:02 Basic Metabolic Panel ordered. EDMS EDMS 22:03 21:02 Alcohol Serum/Plasma ordered. EDMS EDMS 22:03 21:02 Liver (Hepatic) Function ordered. EDMS EDMS 22:03 21:02 Protime (+INR) ordered. EDMS EDMS
[2020-12-07 00:34] VITALS: BP 117/86; TEMP 98.1; O2SAT 96
== END 2020-12-07 | disposition home or self-care (01) ==
LOC: ER 20:22
DX: F43.0 Acute stress reaction (principal); F17.210 Nicotine dependence, cigarettes, uncomplicated; Z88.0 Allergy status to penicillin
CPT/HCPCS: 99283

== ENCOUNTER 2021-05-06 20:54 | Emergency (ER) | payer OTHER ==
--- OUTSIDE RECORDS SUMMARY | 2021-05-06 20:57 | XMS REPORT | Continuity of Care Document ---
:1980 Author Organization [facility] t Address [address] [place] [address] Care Team Providers Name Role Phone PCP, DOES NOT HAVE A Primary Care Physician Unavailable Ender Wagner Attending Clinician Unavailable EVANGELINA APPIAH Attending Clinician Unavailable Evangelina Gonzalez Attending Clinician Ender Wagner Admitting Clinician Unavailable Payers Payer Name Policy Type Policy Number Effective Date Expiration Date S radha [employer]IG[employer] II [id number] 2020 00:00:00 Problems This patient has no known problems. Allergies, Adverse Reactions, Alerts Allergy Allergy Status Severity Reaction(s) Onset Inactive Treating Comm ents Source Name Type Date Date Clinician PENICILL Drug Active Unknown-Cmnt 2020-02 Un juliana INS Class 2-15 ity of 00:00: [place] 00 [facility] Penicill Propensi Active Unknown - 2020-02 Uni vers ins ty to See comments 2-15 ity of adverse 00:00: [place] reaction 00 Medical s Branch Penicill DA Active U 'SINCE BABY [facility] ins NOT SURE OF 09-15 [facility] RE[facility] [place] Penicill DA Active U [facility] ins 09-15 [facility] 00:[facility] [place] NO KNOWN Drug Active Univers ALLERGIE Class ity of S [facility] Social History Social Habit Start Date Stop Date Quantity Comments Source Exposure to Not sure [facility] SARS-CoV-2 (event) Medica l Branch Sex Assigned At [birth year] [facility] 00:00:00 00:00:00 Medical Branch Smoking Status Start Date Stop Date Source Unknown if ever smoked [facility] Medications This patient has no known medications. Vital Signs Vital Name Observation Time Observation Value Comments Source Systolic blood 2021-02-04 22:48:00 123 mm[Hg] Univer sity of pressure [facility] Diastolic blood 2021-02-04 22:48:00 86 mm[Hg] Unive rsity of [facility] Heart rate 2021-02-04 22:48:00 86 /min Universi ty [facility] Body temperature 2021-02-04 22:48:00 37.22 Fernanda [facility] Respiratory rate 2021-02-04 22:48:00 18 /min [facility] Body weight 2021-02-04 22:48:00 79.379 [facility] Oxygen saturation in 2021-02-04 22:48:00 100 /min [facility] Arterial blood by [facility] Pulse oximetry Branch Procedures Procedure Date / Time Performed Performing Clinician Sour e CONSENT/REFUSAL FOR 2021-02-04 22:43:49 [facility] Un[facility]igned, [facility] AND Name Medical Branch TREATMENT NOTICE OF PRIVACY 2021-02-04 22:43:35 Doctor Unassigned, No Univ [facility] PRACTICES Name Medical Branch Encounters Start End Encounter Admission Attending Care Care Encounter Source Date/Time Date/Time Type Type Clinicians Facility Department ID 2020-09-15 Inpatient MARY Wagner [facility] DAYS [id number] [facility] 08:30:00 Sugar [id number] [facility] 2021-02-04 2021-02-04 Emergency X Alyssa APPIAH [facility] ERT [id number] Univers 16:50:00 18:22:00 ity of [facility] 2021-02-04 2021-02-04 Emergency Alyssa Appiah [facility] [id number] Univers 16:50:00 18:22:00 Evangelina GARDNER [id number] i ty [facility] [id number] [facility] [id number] Medi juan 084 Branch 2020-09-16 2020-09-17 [facility] [id number] [facility] 16:27:00 10:25:00 Sugar [id number] [facility] 2020-09-12 2020-09-12 Inpatient MAXIMO Lester [id number] [facility] 11:30:00 11:30:00 Sugar [id number] [facility] Results Test Description Test Time Test Comments Results Result Comments Source UTERUS,OTHER THAN PROLAPSE/DARREN 2020-09-19 10:33:00 Test Item Value Reference Range Interpretation Comme nts UTERUS,OTHER RUN DATE: THAN 09/19/20 [facility] PAGE 1 RUN TIME: 1934 PROLAPSE/DARREN Specim en Inquiry RUN USER: INTERFACE (test code = UTERUSOTH) PATIENT: RANULFO CADENA LOC: U #: [id number] AGE/SX: 39/F ROOM: [facility] RE09/16/20REG DR: Sugar Wagner MD : 78 BED: A DIS: STATUS: DIS Johanne TLOC: SPEC #: [id number] RECD: STATUS: ANDREI DAMON #: [id number] KODY: 09/16/20- SUBM DR: Sugar Wagner MD ENTERED: 09/16/20 SP TYPE: UTERUSOTH OTHR DR : ORDERED: LEVEL V SURGICA CODES: [id number] - UTERUS, NOS PROCEDURES: LEVEL V SURGICA (Incomplete) TISSUES : UTERUS, NOS - UTERUS, CERVIX AND BILATERAL FALLOPIAN TUBES CLINICAL HISTORY 39 year old, menorrhagia (hayden) FINAL DIAGNOSIS Uterus, cervix, bilateral fallopian tubes, h ysterectomy and bilateral salpingectomy: cervix - chronic inflammation endometr ium - early proliferative pattern myometrium - adenomyosis and leiomyoma serosa - no abnormalities identified fallopian tubes - benign paratubal cyst on one fallopian tube - no other abnormalities identified CPT: 74231 cds/wpd GROSS DESCRIPTION ANATOMIC SOURCE OF TISSUE (per Requisition): Uterus, cervix and bilateral fallopi an tubes The specimen is received in a formalin-filled container, labeled with the patient's name and designated "uterus, cervix and bilateral fallopian tubes". The specimen consists of a 225 gm, 11 x 9 x 8 cm previously opened uterus with cervix (2.5 x 2.5 cm, with a 0.5 cm slit-like os). Also identified are two detached segments of fallopian tube measuring 5.5 x 0.5 cm. The sero sa is vargas-pink and dull. The vargas-pink endometrial cavity measures 3.7 x 2.0 cm. The endometrial t hickness averages 0.1 cm. The myometrium is vargas- pink and trabecular with a 5.5 cm identified, di srupted, white, whorled nodule. The endocervix is vargas-pink. The ectocervix is white-pink and dull. The fallopian tubes are pink-purple with fimbriae. Sectioning reveals a pinpoin t CONTINUED ON NEXT PAGE RUN DATE: 09/19/20 [facility] PAGE 2 RUN TIME: 1934 Specimen Inquiry RUN USER: INTERFACE SPEC #: [id number] PATIENT: RANULFO CADENA #[id number] (Continued) -- GROSS DESCRIPTION (Continued) lumen. 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 sections are submitted as follows: A1 a nd A2 - cervix A3 and A4 - endomyometrium A5 - nodule A6 and A7 - fallopian tubes roxana/hayden 09/17/20 Signed Neil Becerril 09/19/20 1033 END OF REPORT HGB [id number] 04:36:00 Test Item Value Reference Range Interpretation Comments HEMOGLOBIN (test code = HGB) 12.5 g/dL 10.1-13.8 N HEMATOCRIT (test code = HCT) 37.3 % 32.5-41.8 N HCG SERUM [id number] 11:17:00 Test Item Value Reference Range Interpretation Comments HCG SERUM QUAL (test code = HCGQL) NEGATIVE PROTHROMBIN [id number] 11:11:00 Test Item Value Reference Range Interpretation Comments PROTHROMBIN TIME PATIENT (test code 10.5 secs 10.1-12.3 N = PTP) THROMBOPLASTIN TIME [id number] 11:11:00 Test Item Value Reference Range Interpretation Comments THROMBOPLASTIN TIME PARTIAL (test 29.7 secs 22-38 N code = PTT) CBC W/AUTO [id number] 11:07:00 Test Item Value Reference Range Interpretation Comments WHITE BLOOD CELL (test code = WBC) 7.6 K/mm3 6.5-12.3 N RED BLOOD CELL (test code = RBC) 4.79 M/mm3 3.51-4.69 H HEMOGLOBIN (test code = HGB) 14.6 g/dL 10.1-13.8 H HEMATOCRIT (test code = HCT) 43.4 % 32.5-41.8 H MEAN CELL VOLUME (test code = MCV) 90.6 fL 84.6-96.6 N MEAN CELL HGB (test code = MCH) 30.5 pg 27.3-33.9 N MEAN CELL HGB CONCETRATION (test 33.6 gm/dL 32.0-34.2 N code = MCHC) RED CELL DISTRIBUTION WIDTH (test 12.5 % 12.2-16.3 N code = RDW) PLATELET COUNT (test code = PLT) 297 K/mm3 134-363 N MEAN PLATELET VOLUME (test code = 9.8 fL 9.2-12.7 N MPV) NEUTROPHIL % (test code = NT%) 55.7 % 57.9-77.3 L LYMPHOCYTE % (test code = LY%) 31.1 % 14.5-29.7 H MONOCYTE % (test code = MO%) 6.7 % 3.6-10.2 N EOSINOPHIL % (test code = EO%) 5.3 % 0.0-3.0 H BASOPHIL % (test code = BA%) 0.9 % 0.1-0.9 N NEUTROPHIL # (test code = NT#) 4.2 K/mm3 LYMPHOCYTE # (test code = LY#) 2.4 K/mm3 MONOCYTE # (test code = MO#) 0.5 K/mm3 EOSINOPHIL # (test code = EO#) 0.40 K/mm3 BASOPHIL # (test code = BA#) 0.1 K/mm3 RBC MORPHOLOGY REQUIRED (test code NORMAL NORMAL = RBCM) PLATELET MORPHOLOGY REQUIRED (test NORMAL NORMAL code = PLTMR)
[2021-05-06] MEDS ORDERED: IBUPROFEN 400 MG TAB ONE (22:15)
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
[2021-05-06] MEDS ORDERED: TETANUS & DIPHTHERIA TOX,ADULT 0.5 ML VIAL ONE (22:19)
[2021-05-06 22:56] VITALS: TEMP 98.2
[2021-05-06 22:58] VITALS: BP 130/90; O2SAT 100
== END 2021-05-06 22:32 | disposition home or self-care (01) ==
LOC: ER 20:54
DX: T23.201A Burn of second degree of right hand, unspecified site, initial encounter (principal); Z88.0 Allergy status to penicillin
CPT/HCPCS: 90714; 99283

== ENCOUNTER 2022-01-04 09:27 | Emergency (ER) | payer OTHER ==
--- OUTSIDE RECORDS SUMMARY | 2022-01-04 09:30 | XMS REPORT | Continuity of Care Document ---
:1980 Author Organization [facility] t Address [address] [place] [address] Care Team Providers Name Role Phone PCP, PATIENT DOES NOT HAVE A Primary Care Physician Unavaila HAYDEE Sanchez Attending Clinician Unavailable HAYDEE PINTO Attending Clinician Unavailable RADIOLOGY Attending Clinician Unavailable Radiology Attending Clinician Unavailable Doctor Unassigned, [place] Attending Clinician Unavailable Alyssa Gonzalez Attending Clinician Alyssa APPIAH Attending Clinician Unavailable Sugar Wagner Attending Clinician Unavailable QUIRINO RODAS JR Admitting Clinician Unavailable Sugar Wagner Admitting Clinician Unavailable Payers Payer Name Policy Type Policy Number Effective Date Expiration Date Ramya garcia [employer] II [id number] 2020 00:00:00 Problems This patient has no known problems. Allergies, Adverse Reactions, Alerts Allergy Allergy Status Severity Reaction(s) Onset Inactive Treating Comm ents Source Name Type Date Date Clinician Penicill Propensi Active Unknown - 2020-02 Uni vers ins ty to See comments 2-15 ity of adverse 00:00: [place] reaction 00 Medical s Branch PENICILL Drug Active Unknown-Cmnt 2020-02 Un juliana INS Class 2-15 ity of 00:00: [place] 00 Medical Branch Penicill Propensi Active Unknown - 2020-02 Uni vers ins ty to See comments 2-15 ity of adverse 00:00: [place] reaction 00 Medical s Branch Penicill DA Active U 'SINCE BABY [facility] ins NOT SURE OF 09-15 Woman '[facility] REACTION' [facility] [place] Penicill DA Active U [facility] ins 09-15 [facility] 00:[facility]: [facility] [place] NO KNOWN Drug Active Univers ALLERGIE Class ity of S [facility] Social History Social Habit Start Date Stop Date Quantity Comments Source Exposure to Not sure [facility] SARS-CoV-2 (event) Medica l Branch Sex Assigned At [birth year] [facility] 00:00:00 00:00:00 Medical Branch Smoking Status Start Date Stop Date Source Unknown if ever smoked [facility] Medications This patient has no known medications. Vital Signs Vital Name Observation Time Observation Value Comments Source Systolic blood 2021-02-04 22:48:00 123 mm[Hg] [facility] Diastolic blood 2021-02-04 22:48:00 86 mm[facility]Hg[facility] Heart rate 2021-02-04 22:48:00 86 /min [facility] Body temperature 2021-02-04 22:48:00 37.22 Fernanda [facility] Respiratory rate 2021-02-04 22:48:00 18 /min [facility] Body weight 2021-02-04 22:48:[address] [facility] Oxygen saturation in 2021-02-04 22:48:00 100 /min [facility] Arterial blood by [facility] Pulse oximetry Branch Procedures Procedure Date / Time Performing Clinician Source Performed BI SCREENING 2021-08-13 20:52:45 Requisition, Paper [facility] TOMOSYNTHESIS BILATERAL [facility] ASSIGNMENT OF BENEFITS 2021-08-13 20:18:45 Doctor Unassigned, No [facility] Name Medical Branch CONSENT/REFUSAL FOR 2021-02-04 22:43:49 Doctor Unassigned, No [facility] NOTICE OF PRIVACY 2021-02-04 22:43:35 Doctor Unassigned, No Univ [facility] PRACTICES Name Medical [place] Encounters Start End Encounter Admission Attending Care Care Encounter Source Date/Time Date/Time Type Type Clinicians Facility Department ID 2021-11-16 2021-11-16 Outpatient R HAYDEE PINTO [facility] [id number] Univers 15:15:00 15:15:00 HAYDEE PINTO itles [facility] 2021-11-16 2021-11-16 Outpatient R HAYDEE PINTO [facility] B [id number] Univers 08:00:00 08:00:[facility] 2021-08-13 2021-08-13 Outpatient R RADIOLOGY [facility] [id number] Univers 15:25:11 23:59:00 ity of [facility] 2021-08-13 2021-08-13 Hospital Radiology [facility] [id number] Univers 15:00:00 23:59:00 Encounter KENDRA [id number] [id number] [id number] [facility] 800 Branch 2021-08-13 2021-08-13 Orders Doctor JANEE [id number] Univers 00:00:00 00:00:00 Only Unassigned, JOHN [id number] ity of [place] [facility] [id number] [place] [id number] [facility] 009 Branch 2021-02-04 2021-02-04 Emergency Alyssa Appiah [facility] [id number] Univers 16:50:00 18:22:00 Haritha KENDRA [id number] [id number] [id number] [facility] 084 Branch 2021-02-04 2021-02-04 Emergency X BIJAL, K [facility] ERT [id number] Univers 16:50:00 18:22:00 ity [facility] 2020-09-16 2020-09-17 Inpatient MARY Wagner, [facility].[id number] [facility] 16:27:00 10:25:00 Sugar [facility] Results Test Description Test Time Test Comments Results Result Comments Source UTERUS,OTHER THAN PROLAPSE/DARREN 2020-09-19 10:33:00 Test Item Value Reference Range Interpretation Comme nts UTERUS,OTHER RUN THAN DATE: 09/19/20 [facility] PAGE 1 RUN TIME: 1934 Specimen Inquiry RUN USER: INTERFACE PROLAPSE/DARREN TAMIKO (test code = ENT: RANULFO CADENA ACCT #: [id number] LOC: [place] U #: [id number] AGE/SX: 39/F ROOM: [facility] REG: UTERUSOTH) 09/16/20REG DR: Sugar Wagner MD : 78 BED: A DIS: 09/17/20 STATUS: DIS Johanne TLOC: SPEC #: [id number] RECD: 09/16/20 STATUS: ANDREI REQ #: [id number] KODY: 09/16/20- SUBM DR: Sugar Wagner MD SP TYPE: UTERUSOTH TREVIN DR: ORDERED: LEVEL V SURGICA CODES: [id number] - UTER US, NOS PROCEDURES: LEVEL V SURGICA (Incomplete) TISSUES: UTERUS, NOS - UTERUS, CERVIX AND NORMA ATERAL FALLOPIAN TUBES CLINICAL HISTORY 39 year old, menorrhagia (hayden) FINAL DIAGNOSIS Uterus , cervix, bilateral fallopian tubes, hysterectomy and bilateral salpingectomy: 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 The specimen consists of a 225 gm, 11 x 9 x 8 cm previously opened uterus with cervix (2.5 x 2.5 cm, with a 0.5 cm slit-like os). Also i dentified are two detached segments of fallopian tube measuring 5.5 x 0.5 cm. The serosa is vargas- pink and dull. The vargas-pink endometrial cavity measures 3.7 x 2.0 cm. The endometrial thicknes s averages 0.1 cm. The myometrium is vargas-pink and trabecular with a 5.5 cm identified, disrupted , white, whorled nodule. The endocervix is vargas- pink. The ectocervix is white-pink and dull. The fallopian tubes are pink-purple with fimbriae. Sectioning reveals a pinpoint CONTINUED ON NEXT PAGE RUN DATE: 09/19/20 [facility] PAGE 2 RUN TIME: 1934 Specimen Inquiry RUN USER: INTERFACE SPEC #: [id number] PATIENT: RANULFO CADENA #[id number] (Continued) ------- GROSS DESCRIPTION (Kahlil justice) lumen. Inspector Technician sections are submitted as follows: A1 and A2 - cervix A3 and A4 - endomyometrium A5 - nodule A6 and A7 - fallopian tubes jono 09/17/20 ---- Signed Neil Rivero 09/19/20 1033 END OF REPORT HGB [id number] 04:36:00 Test Item Value Reference Range Interpretation Comments HEMOGLOBIN (test code = HGB) 12.5 g/dL 10.1-13.8 N HEMATOCRIT (test code = HCT) 37.3 % 32.5-41.8 N HCG SERUM [id number] 11:17:00 Test Item Value Reference Range Interpretation Comments HCG SERUM QUAL (test code = HCGQL) NEGATIVE PROTHROMBIN [id number] 11:11:00 Test Item Value Reference Range Interpretation Comments PROTHROMBIN TIME PATIENT (test code 10.5 secs 10.1-12.3 N = PTP) THROMBOPLASTIN TIME [id number] 11:11:00 Test Item Value Reference Range Interpretation Comments THROMBOPLASTIN TIME PARTIAL (test 29.7 secs 22-38 N code = PTT) CBC W/AUTO [id number] 11:07:00 Test Item Value Reference Range Interpretation [...]
[2022-01-04 11:28] LABS: Urine Blood Negative (Negative); Urine Glucose Negative (Negative); Urine Protein Negative (Negative)
--- NOTE | 2022-01-04 11:32 | RAD REPORT ---
EXAM DESCRIPTION: [place] Single View01/04/2022 10:26 am CLINICAL HISTORY: Chest pain COMPARISON: 2020 FINDINGS: Lungs are hyperaerated. The lungs appear clear of acute infiltrate. The heart is normal size IMPRESSION: No acute abnormalities displayed
[2022-01-04] MEDS ORDERED: LORAZEPAM 1 MG TABLET ONE (11:48)
[2022-01-04 11:59] LABS: Absolute Lymphocytes (CBC) 2.1 K/uL (0.7-4.9); Hematocrit 44.6 % (36.0-45.0); Lymphocytes % 30.1 % (15.3-44.8); MCV 86.7 fL (80-100); MPV 7.4 fL (7.6-11.3); RBC Red Blood Cell Count 5.15 M/uL (3.86-4.86)
[2022-01-04 12:08] LABS: Barbiturates NEGATIVE (NEGATIVE); Benzodiazepines NEGATIVE (NEGATIVE); Cocaine NEGATIVE (NEGATIVE); METHAMPHETAM NEGATIVE (NEGATIVE); Methadone NEGATIVE (NEGATIVE); Opiates NEGATIVE (NEGATIVE); Phencyclidine NEGATIVE (NEGATIVE); THC Cannibis NEGATIVE (NEGATIVE)
[2022-01-04 12:09] LABS: Urine Mucus Slight /HPF (None Seen); Urine RBC <5 /HPF (None Seen)
[2022-01-04 12:25] LABS: Magnesium 2.5 mg/dL (1.8-2.4); Potassium 3.4 mmol/L (3.5-5.1); Troponin High Sensitivity 3.2 pg/mL (<58.9)
--- NOTE | 2022-01-04 12:37 | ER ---
Nurse's Notes [facility] Name: Melissa Leavitt Age: 41 yrs Sex: Female : 1980 Arrival Date: 01/04/2022 Time: 09:30 Bed 10 Private MD: Diagnosis: Anxiety disorder, unspecified;Palpitations Presentation: 01/04 09:54 Chief complaint: Patient states: I feel like my heart wants to jump out of my chest, I iw fell like bugs are crawling my skin, I'm uncomfortable , her PCP and psychiatrist are both out today , has major anxiety and had a recent loss, not sleeping , symptoms started a couple weeks ago, was a long time suboxone user and has stopped over past month and half and maybe that's part of it , I just don't fel right . I just need to get through today and get to my appointment tomorrow with my psychiatrist. Coronavirus screen: At this time, the client does not indicate any symptoms associated with coronavirus-19. Ebola Screen: Patient negative for fever greater than or equal to 101.5 degrees Fahrenheit, and additional compatible Ebola Virus Disease symptoms Patient denies exposure to infectious person. Patient denies travel to an Ebola-affected area in the 21 days before illness onset. No symptoms or risks identified at this time. Initial Sepsis Screen: Does the patient meet any 2 criteria? No. Patient's initial sepsis screen is negative. Does the patient have a suspected source of infection? No. Patient's initial sepsis screen is negative. Risk Assessment: Do you want to hurt yourself or someone else? Patient reports no desire to harm self or others. Onset of symptoms was December 22, 2021. 09:54 Method Of Arrival: Ambulatory iw 09:54 Acuity: FRIDA 3 iw Historical: - Allergies: 09:57 PENICILLINS; iw - Home Meds: 09:57 Clonidine Oral [Active]; gabapentin oral [Active]; Rexulti oral [Active]; duloxetine iw oral [Active]; Alprazolam Oral [Active]; - PMHx: 09:57 anxiety/depression; iw - PSHx: 09:57 hysterectomy; iw Assessment: 11:16 Reassessment: Called patient from [facility]. No answer. Unable to locate patient. Called ss patient's number on file. Pt states, "I'm in the parking lot, I know it's just me panicking. I think I'm just going to go." Pt states she is out in the parking lot and needs a minute to think if she is going to still be seen or leave. 12:48 Reassessment: Patient appears in no apparent distress at this time. Patient and/or ss family updated on plan of care and expected duration. Pain level reassessed. Patient states feeling better. Patient states symptoms have improved. Neuro: Level of Consciousness is awake, alert, obeys commands. Respiratory: Airway is patent Respiratory effort is even, unlabored. Vital Signs: 09:54 BP 117 / 77; Pulse 83; Resp 16; Temp 98.2; Pulse Ox 98% on R/A; Weight 76.2 kg; Height iw 5 ft. 6 in. (167.64 cm); 09:54 Body Mass Index 27.11 (76.20 kg, 167.64 cm) iw ED Course: 09:30 Patient arrived in ED. rg4 09:31 Flex Mcleod PA is PHCP. cp 09:31 Aj Guevara MD is Attending Physician. cp 09:57 Triage completed. iw 09:57 Arm band placed on. iw 10:26 XRAY Chest (1 view) In Process Unspecified. EDMS 11:43 Marilin Kim, RN is Primary Nurse. ss 11:43 Inserted saline lock: 22 gauge in right antecubital area, using aseptic technique. ss Blood collected. 12:49 No provider procedures requiring assistance completed. IV discontinued, intact, ss bleeding controlled, No redness/swelling at site. Pressure dressing applied. Administered Medications: 11:45 Not Given (Physician Discretion): Ativan (LORazepam) 1 mg IVP once ss 11:50 Drug: Ativan (LORazepam) 2 mg Route: PO; ss 12:48 Follow up: Response: No adverse reaction; Anxiety decreased ss 12:48 Drug: Potassium Effervescent Tablet 25 mEq Route: PO; ss 12:48 Follow up: Response: Medication administered at discharge. ss Outcome: 12:36 Discharge ordered by . cp 12:49 Discharged to home ambulatory. ss 12:49 Condition: good 12:49 Discharge instructions given to patient, Instructed on discharge instructions, follow up and referral plans. Demonstrated understanding of instructions, follow-up care. 12:49 Patient left the ED. Signatures: Dispatcher [employer] Amparo Oneill RN RN Marilin Kim RN RN Flex Mcleod PA PA cp Garcia, Rubi rg4 Corrections: (The following items were deleted from the chart) 09:57 09:54 BP 117 / 7; Pulse 83bpm; Resp 16bpm; Pulse Ox 98% RA; Temp 98.2F; 76.2 kg; Height iw 5 ft. 6 in.; BMI: 27.1; iw 09:59 09:54 Chief complaint: Patient states: I feel like my heart wants to jump out of my iw chest, I fell like bugs are crawling my skin, I'm uncomfortable , her PCP and psychiatrist are both out today , has major anxiety and had a recent loss, not sleeping , symptoms started a couple weeks ago, was a long time suboxone user and has stopped over past month and half and maybe that's part of it , I just don't fel right iw
--- NOTE | 2022-01-04 12:37 | EDPHYS ---
Physician Documentation [facility] Name: Melissa Leavitt Age: 41 yrs Sex: Female : 1980 Arrival Date: 01/04/2022 Time: 09:30 Bed 10 Private MD: ED Physician Aj Guevara HPI: 01/04 10:15 This 41 yrs old Female presents to ER via Ambulatory with complaints of Palpitations. cp 10:15 The patient presents with a history of heart racing. Context: The symptoms occur at cp rest. 10:15 Onset: The symptoms/episode began/occurred gradually, and became worse today, started cp several weeks ago. 10:15 Associated signs and symptoms: Pertinent positives: anxiety, chest pain, SOB, Pertinent cp negatives: cough, fever, syncope. Patient reports recent of relative. Weaned herself off her prescribed Suboxone about 1 month ago. Historical: - Allergies: 09:57 PENICILLINS; iw - Home Meds: 09:57 Clonidine Oral [Active]; gabapentin oral [Active]; Rexulti oral [Active]; duloxetine iw oral [Active]; Alprazolam Oral [Active]; - PMHx: 09:57 anxiety/depression; iw - PSHx: 09:57 hysterectomy; iw ROS: 10:20 Constitutional: Negative for body aches, chills, fever, poor PO intake. cp 10:20 Eyes: Negative for injury, pain, redness, and discharge. cp 10:20 ENT: Negative for drainage from ear(s), ear pain, sore throat, difficulty swallowing, difficulty handling secretions. 10:20 Cardiovascular: Positive for chest pain, palpitations, Negative for edema. 10:20 Respiratory: Positive for shortness of breath, Negative for cough, wheezing. 10:20 Abdomen/GI: Positive for nausea, Negative for abdominal pain, vomiting, diarrhea, constipation. 10:20 Neuro: Negative for altered mental status, dizziness, headache, syncope, weakness. 10:20 All other systems are negative. Exam: 10:25 Constitutional: The patient appears in no acute distress, alert, awake, cp non-diaphoretic, non-toxic, well developed, well nourished, anxious. 10:25 Head/Face: Normocephalic, atraumatic. cp 10:25 Eyes: Periorbital structures: appear normal, Pupils: equal, round, and reactive to light and accomodation, Extraocular movements: intact throughout, Conjunctiva: normal, no exudate, no injection, Lids and lashes: appear normal, bilaterally. 10:25 ENT: External ear(s): are unremarkable, Nose: is normal, Mouth: Lips: moist, Oral mucosa: pink and intact, moist, Posterior pharynx: Airway: no evidence of obstruction, patent, erythema, is not appreciated, exudate, is not appreciated. 10:25 Neck: ROM/movement: is normal, is supple, without pain, no range of motions limitations, no meningismus. 10:25 Chest/axilla: Inspection: normal, Palpation: is normal, no crepitus, no tenderness. 10:25 Cardiovascular: Rate: normal, Rhythm: regular, Edema: is not appreciated, JVD: is not appreciated. 10:25 Respiratory: the patient does not display signs of respiratory distress, Respirations: normal, no use of accessory muscles, no retractions, labored breathing, is not present, Breath sounds: are clear throughout, no decreased breath sounds, no stridor, no wheezing. 10:25 Abdomen/GI: Inspection: abdomen appears normal, Palpation: abdomen is soft and non-tender, in all quadrants. 10:25 Back: pain, is absent, ROM is normal. 10:25 Neuro: Orientation: to person, place \T\ time. Mentation: is normal, Cerebellar function: is grossly normal, Motor: moves all fours, strength is normal, Sensation: is normal. Vital Signs: 09:54 BP 117 / 77; Pulse 83; Resp 16; Temp 98.2; Pulse Ox 98% on R/A; Weight 76.2 kg; Height iw 5 ft. 6 in. (167.64 cm); 09:54 Body Mass Index 27.11 (76.20 kg, 167.64 cm) iw MDM: 10:37 Patient medically screened. cp 12:35 Data reviewed: vital signs, nurses notes, lab test result(s), EKG, radiologic studies, cp plain films. 12:35 Differential diagnosis: illegal drug use, Anxiety, electrolyte abnormality, cardiac cp arrythmia. Test interpretation: by ED physician or midlevel provider: ECG, plain radiologic studies. Counseling: I had a detailed discussion with the patient and/or guardian regarding: the historical points, exam findings, and any diagnostic results supporting the discharge/admit diagnosis, lab results, radiology results, the need for outpatient follow up, a psychiatrist, to return to the emergency department if symptoms worsen or persist or if there are any questions or concerns that arise at home. Response to treatment: the patient's symptoms have markedly improved after treatment, and as a result, I will discharge patient. 01/04 10:11 Order name: Basic Metabolic Panel; Complete Time: 12:29 01/04 12:29 Interpretation: Normal except: K 3.4; GFR 89. 01/04 10:11 Order name: CBC with Diff; Complete Time: 12:29 01/04 12:29 Interpretation: Normal except: RBC 5.15; HGB 15.3; MPV 7.4. 01/04 10:11 Order name: D-Dimer; Complete Time: 12:29 01/04 10:11 Order name: Magnesium; Complete Time: 12:29 01/04 12:29 Interpretation: Abnormal: MG 2.5. 01/04 10:11 Order name: Troponin HS; Complete Time: 12:29 01/04 10:11 Order name: Urine Microscopic Only; Complete Time: 12:29 01/04 10:11 Order name: XRAY Chest (1 view); Complete Time: 11:53 01/04 11:53 Interpretation: Report review. 01/04 10:11 Order name: EKG; Complete Time: 10:11 01/04 10:11 Order name: Cardiac monitoring; Complete Time: 11:43 01/04 10:11 Order name: UDS; Complete Time: 12:29 01/04 12:30 Interpretation: Reviewed. 01/04 11:29 Order name: Urine Dipstick-Ancillary; Complete Time: 11:53 EDMS 01/04 11:53 Interpretation: Reviewed. 01/04 10:11 Order name: EKG - Nurse/Tech; Complete Time: 11:43 01/04 10:11 Order name: IV Saline Lock; Complete Time: 11:43 01/04 10:11 Order name: Labs collected and sent; Complete Time: 11:43 01/04 10:11 Order name: O2 Per Protocol; Complete Time: 11:43 01/04 10:11 Order name: O2 Sat Monitoring; Complete Time: 11:43 cp 01/04 10:11 Order name: Urine Dipstick-Ancillary (obtain specimen); Complete Time: 11:30 cp 01/04 10:11 Order name: Urine Test (obtain specimen); Complete Time: 11:30 cp Administered Medications: 11:45 Not Given (Physician Discretion): Ativan (LORazepam) 1 mg IVP once ss 11:50 Drug: Ativan (LORazepam) 2 mg Route: PO; ss 12:48 Follow up: Response: No adverse reaction; Anxiety decreased ss 12:48 Drug: Potassium Effervescent Tablet 25 mEq Route: PO; ss 12:48 Follow up: Response: Medication administered at discharge. ss Disposition Summary: 01/04/22 12:36 Discharge Ordered Location: Home cp Problem: an acute exacerbation cp Symptoms: have improved cp Condition: Stable cp Diagnosis - Anxiety disorder, unspecified cp - Palpitations cp Followup: cp - With: Private Physician - When: 1 - 2 days - Reason: Recheck today's complaints Discharge Instructions: - Discharge Summary Sheet cp - Palpitations cp - Aspirin and Your Heart cp - Generalized Anxiety Disorder, Adult cp - Ambulatory Cardiac Monitoring cp Forms: - Work release form iw - Medication Reconciliation Form cp - Thank You Letter cp - Antibiotic Education cp - Prescription Opioid Use cp Addendum: 01/05/2022 13:06 Co-signature as Attending Physician, Aj Guevara MD. r n Signatures: Dispatcher [employer] Amparo Oneill, Aj Duong RN, MD MD rn Smirch, Shelby, RN RN ss Page, Corey, HONEY PA cp
[2022-01-04] MEDS ORDERED: POTASSIUM 25 MEQ EFFERV TAB ONE (12:40)
[2022-01-04 12:53] VITALS: BP 117/77; TEMP 98.2; O2SAT 98
--- NOTE | 2022-01-05 08:24 | EKG ---
Test Date: 2022-01-04 Test Time: 11:33:25 Quality Engineer Medical Device: WILIAN MEASUREMENT RESULTS: Intervals: Rate: 68 OK: 142 QRSD: 106 QT: 404 QTc: 429 Ozan: P: 58 OK: 142 QRS: 78 T: 55 INTERPRETIVE STATEMENTS: Normal sinus rhythm Normal ECG Compared to ECG 12/03/2020 08:25:11 No significant changes Electronically Signed On 01-05-22 08:20:05 NEUROLOGY EPILEPSY PHYSICIAN by Sanket Islas
== END 2022-01-04 12:49 | disposition home or self-care (01) ==
LOC: ER 09:27
DX: F41.9 Anxiety disorder, unspecified (principal); Z88.0 Allergy status to penicillin
CPT/HCPCS: 36415; 71045; 80048; 80307; 81003; 81015; 83735; 84484; 85025; 85379; 93005; 99284

== ENCOUNTER 2022-01-12 10:01 | Emergency (ER) | payer OTHER ==
--- OUTSIDE RECORDS SUMMARY | 2022-01-12 10:05 | XMS REPORT | Continuity of Care Document ---
:1980 Author Organization [facility] t Address [address] [place] [address] Care Team Providers Name Role Phone PCP, PATIENT DOES NOT HAVE A Primary Care Physician Unavaila HAYDEE Sanchez Attending Clinician Unavailable HAYDEE PINTO Attending Clinician Unavailable RADIOLOGY Attending Clinician Unavailable Radiology Attending Clinician Unavailable Doctor Unassigned, [place] Attending Clinician Unavailable Alyssa APPIAH Attending Clinician Unavailable Alyssa Gonzalez Attending Clinician Sugar Wagner Attending Clinician Unavailable QUIRINO RODAS JR Admitting Clinician Unavailable Sugar Wagner Admitting Clinician Unavailable Payers Payer Name Policy Type Policy Number Effective Date Expiration Date Ramya INIGUEZ II [id number] 2020 00:00:00 Problems This patient has no [...] 's REACTION' 00:00: [facility] [place] DA Active [facility] ins 09-15 [facility] [place] NO KNOWN Drug Active Univers ALLERGIE Class ity of S [facility] Social History Social Habit Start Date Stop Date Quantity Comments Source Exposure to Not sure [facility] SARS-CoV-2 (event) Medica l Branch Sex Assigned At [birth year] [facility] 00:00:00 00:00:00 Medical Branch Smoking Status Start Date Stop Date Source Unknown if ever smoked [facility] Medications This patient has no known medications. Vital Signs Vital Name Observation Time Observation Value Comments Source Systolic blood 2021-02-04 22:48:00 123 mm[Hg] Univer sity of [facility] Diastolic blood 2021-02-04 22:48:00 86 mm[facility]Hg[facility] rate 2021-02-04 22:48:00 86 /min [facility] Body temperature 2021-02-04 22:48:00 37.22 Fernanda [facility] Respiratory rate 2021-02-04 22:48:00 18 /min [facility] Body weight 2021-02-04 22:48:00 79.379 kg [facility] Oxygen saturation in 2021-02-04 22:48:00 100 /min [facility] Arterial blood by [facility] Pulse oximetry Branch Procedures Procedure Date / Time Performing Clinician Source Performed BI SCREENING 2021-08-13 20:52:45 Requisition, Paper [facility] TOMOSYNTHESIS BILATERAL Medical Branch ASSIGNMENT OF BENEFITS 2021-08-13 20:18:45 Doctor Unassigned, No [facility] Name Medical Branch CONSENT/REFUSAL FOR 2021-02-04 22:43:49 Doctor Unassigned, No [facility] Medical Branch NOTICE OF PRIVACY 2021-02-04 22:43:35 Doctor Unassigned, No Univ [facility] PRACTICES Name Medical Branch Encounters Start End Encounter Admission Attending Care Care Encounter Source Date/Time Date/Time Type Type Clinicians Facility Department ID 2021-11-16 2021-11-16 Outpatient R HAYDEE PINTO [facility] B [id number] Univers 15:15:00 15:15:00 HAYDEE PINTO itles [facility] 2021-11-16 2021-11-16 Outpatient R HAYDEE PINTO [facility] B [id number] Univers 08:00:00 08:00:00 HAYDEE PINTO itles [facility] 2021-08-13 2021-08-13 Outpatient R RADIOLOGY [facility] [id number] Univers 15:25:11 23:59:00 ity [facility] 2021-08-13 2021-08-13 Hospital Radiology [facility] [id number] Univers 15:00:00 23:59:00 Encounter KENDRA [id number] ity of [place] [id number] [facility] [id number] [facility] 800 Branch 2021-08-13 2021-08-13 Orders Doctor JANEE [id number] Univers 00:00:00 00:00:00 Only Unassigned, JOHN [id number] ity of [place] [facility] [id number] [place] as [id number] [facility] 009 Branch 2021-02-04 2021-02-04 Emergency X Alyssa APPIAH [facility] ERT [id number] Univers 16:50:00 18:22:00 ity [facility] 2021-02-04 2021-02-04 Emergency Alyssa Appiah [facility] [id number] Univers 16:50:00 18:22:00 Haritha KENDRA [id number] i ty of [place] [id number] [facility] [id number] [facility] 084 Branch 2020-09-16 2020-09-17 Inpatient MARY Wagner, [facility]. [id number] [facility] 16:27:00 10:25:00 [facility] Test Description Test Time Test Comments Results Result Comments Source UTERUS,OTHER THAN PROLAPSE/DARREN 2020-09-19 10:33:00 Test Item Value Reference Range Interpretation Yaniv huntley UTERUS,OTHER RUN THAN DATE: 09/19/20 [facility] PAGE 1 RUN TIME: 1934 Specimen Inquiry RUN USER: INTERFACE PROLAPSE/DARREN MANUELA (test code = NT: RANULFO CADENA ACCT #: [id number] [facility] #: [id number] AGE/SX: 39/F ROOM: [facility] REG: [facility] 09/16/20TODD DR: Sugar Wagner MD : 78 BED: A DIS: 09/17/20 STATUS: DIS Johanne TLOC: SPEC #: [id number] RECD: 08/22 STATUS: ANDREI REQ #: [id number] KODY: 09/16/20- SUBM DR: Sugar Wagner MD ENTERED: 0 09/16/20 SP TYPE: UTERUSOTH TREVIN DR: ORDERED: LEVEL V SURGICA CODES: A51640 - UTERUS, NOS PROCEDURES: LEVEL V SURGICA (Incomplete) TISSUES: UTERUS, NOS - UTERUS, CERVIX AND BILATERAL FALLOPIAN TUBES CLINICAL HISTORY 39 year old, menorrhagia (hayden) FINAL DIAGNOSIS Uterus, cerv ix, bilateral fallopian tubes, hysterectomy and bilateral salpingectomy: cervix - thermostat maker jose luis inflammation endometrium - early proliferative pattern myometrium - adenomyosis and leiomyoma serosa - no abnormalities identified fallopian tubes - benign paratubal cyst on one fallop srinivasan tube - no other abnormalities identified CPT: 78301 cds/wpd GROSS DESCRIPTION ANATOMIC S OURCE OF TISSUE (per Requisition): Uterus, cervix and bilateral fallopian tubes The specimen is received in a formalin-filled container, labeled with the patient's name and designate d "uterus, cervix and bilateral fallopian tubes". The specimen consists of a 225 gm, 11 x 9 x 8 cm previously opened uterus with cervix (2.5 x 2.5 cm, with a 0.5 cm slit-like os). Also i dentified are two detached segments of fallopian tube measuring 5.5 x 0.5 cm. The serosa is vargas-pi nk and dull. The vargas-pink endometrial cavity measures 3.7 x 2.0 cm. The endometrial thickness av erages 0.1 cm. The myometrium is vargas-pink and trabecular with a 5.5 cm identified, disrupted, wh ite, whorled nodule. The endocervix is vargas-pink. The ectocervix is white-pink and dull. The fal lopian tubes are pink-purple with fimbriae. Sectioning reveals a pinpoint CONTINUED ON NEXT PAGE RUN DATE: 09/19/20 [facility] PAGE 2 RUN TIME: 1934 Specimen Inquiry RUN USER: INTERFACE SPEC #: [id number] PATIENT: RANULFO CADENA #[id number] (Continued) ------ GROSS DESCRIPTION (Co ntinued) lumen. Retina Subspecialist sections are submitted as follows: A1 and A2 - cervix A3 and A4 - endomyometrium A5 - nodule A6 and A7 - fallopian tubes roxana/hayden 09/17/20 --- Signed Neil Rivero 09/19/20 1033 END OF REPORT [facility] [id number] 04:36:00 Test Item Value Reference Range Interpretation Comments HEMOGLOBIN (test code = HGB) 12.5 g/dL 10.1-13.8 N HEMATOCRIT (test code = HCT) 37.3 % 32.5-41.8 N HCG SERUM [id number] 11:17:00 Test Item Value Reference Range Interpretation Comments HCG SERUM QUAL (test code = HCGQL) NEGATIVE PROTHROMBIN [id number] 11:11:00 Test Item Value Reference Range Interpretation Comments PROTHROMBIN TIME PATIENT (test code 10.5 secs 10.1-12.3 N = PTP) THROMBOPLASTIN TIME [id number] 11:11:00 Test Item Value Reference Range Interpretation Comments THROMBOPLASTIN TIME PARTIAL (test 29.7 secs 22-38 N code = PTT) CBC W/AUTO [id number] 11:07:00 Test Item Value Reference Range Interpretation [...]
[2022-01-12] MEDS ORDERED: HYDROCODONE/APAP 10/325 TAB ONE (10:34)
[2022-01-12] MEDS ORDERED: MORPHINE 2 MG/ML SYR ONE (11:08)
--- NOTE | 2022-01-12 12:07 | RAD REPORT ---
EXAM DESCRIPTION: RAD - Ankle Right 3 View - 01/12/2022 11:03 am CLINICAL HISTORY: Right ankle pain FINDINGS: Cortical regularity lateral malleolus likely minimally displaced fracture. Adjacent soft t issue swelling. No dislocation
--- NOTE | 2022-01-12 12:11 | ER ---
Nurse's Notes [facility] Name: Melissa Leavitt Age: 41 yrs Sex: Female : 1980 Arrival Date: 01/12/2022 Time: 10:03 Bed 18 Private MD: Diagnosis: Pain in ankle and joints of foot Presentation: 01/12 10:03 Chief complaint: EMS states: R ANKLE INJURY LAST PM. Coronavirus screen: At this time, bp the client does not indicate any symptoms associated with coronavirus-19. Ebola Screen: No symptoms or risks identified at this time. Initial Sepsis Screen: Does the patient meet any 2 criteria? No. Patient's initial sepsis screen is negative. Does the patient have a suspected source of infection? No. Patient's initial sepsis screen is negative. Risk Assessment: Do you want to hurt yourself or someone else? Patient reports no desire to harm self or others. Onset of symptoms was January 11, 2022. Care prior to arrival: Medication(s) given: Tylenol, 1000 mg. 10:03 Method Of Arrival: EMS: [facility] bp 10:03 Acuity: FRIDA 3 bp Triage Assessment: 10:10 General: Appears in no apparent distress. uncomfortable, Behavior is calm, cooperative, bp appropriate for age. Pain: Complains of pain in anterior aspect of right ankle. EENT: No deficits noted. Neuro: No deficits noted. Cardiovascular: No deficits noted. Respiratory: No deficits noted. GI: No signs and/or symptoms were reported involving the gastrointestinal system. : No signs and/or symptoms were reported regarding the genitourinary system. Derm: No deficits noted. Musculoskeletal: Reports pain in anterior aspect of right ankle. Historical: - Allergies: 10:05 PENICILLINS; bp - Home Meds: 10:05 Rexulti Oral [Active]; gabapentin Oral [Active]; duloxetine Oral [Active]; Clonidine bp Oral [Active]; Alprazolam Oral [Active]; - PMHx: 10:05 anxiety/depression; bp - PSHx: 10:05 hysterectomy; bp - Immunization history:: Adult Immunizations up to date. - Social history:: Smoking status: Patient denies any tobacco usage or history of. Screenin:10 Abuse screen: Denies threats or abuse. Denies injuries from another. Nutritional bp screening: No deficits noted. Tuberculosis screening: No symptoms or risk factors identified. Fall Risk None identified. Assessment: 10:10 General: SEE TRIAGE NOTE. bp 12:00 Reassessment: No changes from previously documented assessment. Patient and/or family bp updated on plan of care and expected duration. Pain level reassessed. 14:05 Reassessment: PT DC VIA W/C. bp Vital Signs: 10:44 BP 108 / 62; Pulse 83; Resp 16; Pulse Ox 100% ; bp ED Course: 10:03 Patient arrived in ED. bp 10:04 Collin Rosas is PHCP. jl9 10:04 Flex Castañeda MD is Attending Physician. jl9 10:05 Triage completed. bp 10:05 Eyad Reid, RN is Primary Nurse. bp 10:10 Arm band placed on. bp 10:10 Patient has correct armband on for positive identification. Bed in low position. Call bp light in reach. Side rails up X2. 11:05 XRAY Ankle RIGHT 3 view In Process Unspecified. EDMS 12:10 Eric Hassan MD is Referral Physician. jl9 14:06 No provider procedures requiring assistance completed. Patient did not have IV access bp during this emergency room visit. Administered Medications: 10:30 Drug: [place] (HYDROcodone-acetaminophen) 10 mg-325 mg 1 tabs Route: PO; bp 11:39 Follow up: Response: Pain is decreased bp 11:12 Drug: morphine 2 mg Route: IM; Site: right deltoid; bp 11:39 Follow up: Response: No adverse reaction; Pain is decreased bp 12:30 Drug: XANax (alprazolam) Tablet 0.5 mg Route: PO; bp 12:43 Follow up: Response: No adverse reaction bp Medication: 10:10 VIS not applicable for this client. bp Outcome: 12:11 Discharge ordered by . jl9 14:07 Discharged to home bp 14:07 Condition: stable 14:07 Discharge instructions given to patient, Instructed on discharge instructions, follow up and referral plans. medication usage, crutch walking, Demonstrated understanding of instructions, follow-up care, medications, crutch walking, splint care. 14:08 Patient left the ED. iw Signatures: Dispatcher [employer] EDMS Amparo Melgar RN RN iw Eyad Reid RN RN Collin Melvin jl9
--- NOTE | 2022-01-12 12:12 | EDPHYS ---
Physician Documentation [facility] Name: Melissa Leavitt Age: 41 yrs Sex: Female : 1980 Arrival Date: 01/12/2022 Time: 10:03 Bed 18 Private MD: ED Physician Flex Castañeda HPI: 01/12 10:45 This 41 yrs old Female presents to ER via EMS with complaints of Ankle jl9 Injury. Patient reports twisting her ankle yesterday while walking. . 10:45 The patient presents with pain. The complaints affect the right ankle. Onset: The jl9 symptoms/episode began/occurred yesterday. Context: The problem was sustained at work. Modifying factors: The symptoms are alleviated by nothing, the symptoms are aggravated by weight bearing. Severity of symptoms: in the emergency department the symptoms a " 6" out of "10". Historical: - Allergies: 10:05 PENICILLINS; bp - Home Meds: 10:05 Rexulti Oral [Active]; gabapentin Oral [Active]; duloxetine Oral [Active]; Clonidine bp Oral [Active]; Alprazolam Oral [Active]; - PMHx: 10:05 anxiety/depression; bp - PSHx: 10:05 hysterectomy; bp - Immunization history:: Adult Immunizations up to date. - Social history:: Smoking status: Patient denies any tobacco usage or history of. ROS: 10:46 Constitutional: Negative for fever, chills, and weight loss, Eyes: Negative for injury, jl9 pain, redness, and discharge, ENT: Negative for injury, pain, and discharge, Neck: Negative for injury, pain, and swelling, Cardiovascular: Negative for chest pain, palpitations, and edema, Respiratory: Negative for shortness of breath, cough, wheezing, and pleuritic chest pain, Abdomen/GI: Negative for abdominal pain, nausea, vomiting, diarrhea, and constipation, Back: Negative for injury and pain, : Negative for injury, bleeding, discharge, and swelling. 10:46 Skin: Negative for injury, rash, and discoloration, Neuro: Negative for headache, weakness, numbness, tingling, and seizure, Psych: Negative for depression, anxiety, suicide ideation, homicidal ideation, and hallucinations, Allergy/Immunology: Negative for hives, rash, and allergies, Endocrine: Negative for neck swelling, polydipsia, polyuria, polyphagia, and marked weight changes, Hematologic/Lymphatic: Negative for swollen nodes, abnormal bleeding, and unusual bruising. 10:46 MS/extremity: Positive for decreased range of motion, pain, of the right ankle. Exam: 10:47 Constitutional: This is a well developed, well nourished patient who is awake, alert, jl9 and in no acute distress. Head/Face: Normocephalic, atraumatic. Eyes: Pupils equal round and reactive to light, extra-ocular motions intact. Lids and lashes normal. Conjunctiva and sclera are non-icteric and not injected. Cornea within normal limits. Periorbital areas with no swelling, redness, or edema. ENT: Mucous membranes moist. Neck: Trachea midline, no thyromegaly or masses palpated, and no cervical lymphadenopathy. Supple, full range of motion without nuchal rigidity, or vertebral point tenderness. No Meningismus. Chest/axilla: Normal chest wall appearance and motion. Nontender with no deformity. No lesions are appreciated. Cardiovascular: Regular rate and rhythm with a normal S1 and S2. No gallops, murmurs, or rubs. Normal PMI, no JVD. No pulse deficits. Respiratory: Lungs have equal breath sounds bilaterally, clear to auscultation and percussion. No rales, rhonchi or wheezes noted. No increased work of breathing, no retractions or nasal flaring. Abdomen/GI: Soft, non-tender, with normal bowel sounds. No distension or tympany. No guarding or rebound. No evidence of tenderness throughout. Back: No spinal tenderness. No costovertebral tenderness. Full range of motion. Skin: Warm, dry with normal turgor. Normal color with no rashes, no lesions, and no evidence of cellulitis. 10:47 Neuro: Awake and alert, GCS 15, oriented to person, place, time, and situation. Cranial nerves II-XII grossly intact. Motor strength 5/5 in all extremities. Sensory grossly intact. Cerebellar exam normal. Normal gait. Psych: Awake, alert, with orientation to person, place and time. Behavior, mood, and affect are within normal limits. 10:47 Musculoskeletal/extremity: Extremities: grossly normal except: pain, ROM: limited active range of motion due to pain, in the right ankle, Circulation is intact in all extremities. Sensation intact. Vital Signs: 10:44 BP 108 / 62; Pulse 83; Resp 16; Pulse Ox 100% ; bp Procedures: 13:00 Splinting: Splint applied to right foot using Orthoglass splint, applied by nurse. post jl9 reduction film - Examined by me, post splint application: neurovascular intact, 2+ distal pulses palpable, brisk capillary refill noted, Patient tolerated well. MDM: 10:04 Patient medically screened. jl9 10:47 Data reviewed: vital signs, nurses notes. jl9 12:10 Differential diagnosis: fracture, sprain. Counseling: I had a detailed discussion with jl9 the patient and/or guardian regarding: the historical points, exam findings, and any diagnostic results supporting the discharge/admit diagnosis, radiology results, the need for outpatient follow up, a orthopedic surgeon. Response to treatment: the patient's symptoms have markedly improved after treatment. 01/12 10:07 Order name: XRAY Ankle RIGHT 3 view; Complete Time: 12:09 jl9 01/12 12:10 Order name: Posterior Leg Splint; Complete Time: 13:11 jl9 Administered Medications: 10:30 Drug: [place] (HYDROcodone-acetaminophen) 10 mg-325 mg 1 tabs Route: PO; bp 11:39 Follow up: Response: Pain is decreased bp 11:12 Drug: morphine 2 mg Route: IM; Site: right deltoid; bp 11:39 Follow up: Response: No adverse reaction; Pain is decreased bp 12:30 Drug: XANax (alprazolam) Tablet 0.5 mg Route: PO; bp 12:43 Follow up: Response: No adverse reaction bp Disposition Summary: 01/12/22 12:11 Discharge Ordered Location: Home jl9 Condition: Stable jl9 Diagnosis - Pain in ankle and joints of foot jl9 Followup: jl9 - With: Eric Hassan MD - When: 1 - 2 days - Reason: Recheck today's complaints, Continuance of care, Re-evaluation by your physician Discharge Instructions: - Discharge Summary Sheet jl9 - Ankle Fracture, [id number] jl9 Forms: - Medication Reconciliation Form jl9 - Thank You Letter jl9 - Antibiotic Education jl9 - Prescription Opioid Use jl9 Prescriptions: - Tylenol-Codeine #3 300 mg-30 mg Oral - take 1 tablet by ORAL route every 6 hours As needed; 20 tablet; Refills: 0, jl9 Product Selection Permitted Signatures: Dispatcher Eyad Retana, RN Collin Garibay jl9
[2022-01-12] MEDS ORDERED: ALPRAZOLAM 0.5 MG TABLET ONE (12:16)
[2022-01-12 14:28] VITALS: BP 108/62; O2SAT 100
== END 2022-01-12 14:08 | disposition home or self-care (01) ==
LOC: ER 10:01
DX: M25.571 Pain in right ankle and joints of right foot (principal); Z88.0 Allergy status to penicillin
CPT/HCPCS: 96372; 99284; J2270

== ENCOUNTER → 2023-02-08 | Emergency (ER) | payer SELFPAY ==
[~2023-02-08] MED LIST: KETOROLAC 30 MG/ML INJ ONE; NA CHLORIDE 0.9% 1,000 ML ONE; ONDANSETRON 4 MG/2 ML VIAL ONE
--- OUTSIDE RECORDS SUMMARY | 2023-02-08 09:32 | XMS REPORT | Continuity of Care Document ---
Author Name Unknown Address [address] [facility] [address] [place] [address] [facility] thconnect Address [address] [facility] 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 Name Role Phone Pcp, Patient Does Not Have A Primary Care Physic srinivasan [email or web address] Attending Clinician UnavailBeth Umana Attending Clinician [phone] BETH REYES Attending Clinician Unavailable Doctor Unassigned, Kohler Attending Clinician U Jarrell Sue MD Attending Clinician [phone] JARRELL BENNETT Attending Clinician Unavailabl HAYDEE Whitney Attending Clinician Unavaila HAYDEE Sanchez Attending Clinician Unavaila avtar RADIOLOGY Attending Clinician Unavailable Radiology Attending Clinician Unavailable Alyssa APPIAH Attending Clinician Unavailable Alyssa Gonzalez Attending Clinician [phone] [email or web address] Admitting Clinician Unavaila QUIRINO Johnson JR Admitting Clinician Unavailab le Payers Payer Name Policy Type Policy Number Effective Date Expirati on Date Source Problems Condition Name Condition Details Condition Category Status Onset Date Resolution Date Last Treatment Date Treating Clinician Comments Source No known active problems No known active problems Disease [facility] Allergies, Adverse Reactions, Alerts Allergy Name Allergy Type Status Severity Reaction(s) Onset Date Inactive Date Treating Clinician Comments Source Penicill ins Propensi ty to adverse reaction s Active Unknown - See comments 2020-02 00:00: 00 [facility] Penicill ins Propensi ty to adverse reaction s Active Unknown - See comments 2020-02 00:00: 00 [facility] PENICILL INS Drug Class Active Unknown-Cmnt 2020-02 00:00: 00 [facility] Penicill ins Propensi ty to adverse reaction s Active Unknown - See comments 2020-02 00:00: 00 [facility] NO KNOWN ALLERGIE S Drug Class Active [facility] Social History Social Habit Start Date Stop Date Quantity Comments Source Exposure to SARS-CoV-2 (event) 2022-02-14 00:00:00 2022-02-24 13:05:00 Not sure [facility] Alcohol intake 2022-02-24 00:00:00 2022-02-24 00:00:00 Lifetime non-drinker (finding) [facility] Tobacco use and exposure 2022-01-19 00:00:00 2022-01-19 00:00:00 Smokeless tobacco non-user [facility] Sex Assigned At 1980 00:00:00 1980 00:00:00 [facility] Smoking Status Start Date Stop Date Source Unknown if ever smoked [facility] Never smoked tobacco [facility] Medications Ordered Medication Name Filled Medication Name Start Date Stop Date Current Medication? Ordering Clinician Indication Dosage Frequency Signature (SIG) Comments Components Source methocarbam oL 500 mg tablet 2021-02 00:00: 00 Yes [facility] traMADoL 50 mg tablet 2021-02 00:00: 00 Yes [facility] methocarbam oL 500 mg tablet 2021-02 00:00: 00 Yes [facility] traMADoL 50 mg tablet 2021-02 00:00: 00 Yes [facility] methocarbam oL 500 mg tablet 2021-02 00:00: 00 Yes [facility] traMADoL 50 mg tablet 2021-02 00:00: 00 Yes [facility] methocarbam oL 500 mg tablet 2021-02 00:00: 00 Yes [facility] traMADoL 50 mg tablet 2021-02 00:00: 00 Yes [facility] methocarbam oL 500 mg tablet 2021-02 00:00: 00 Yes [facility] traMADoL 50 mg tablet 2021-02 00:00: 00 Yes [facility] methocarbam oL 500 mg tablet 2021-02 00:00: 00 Yes [facility] traMADoL 50 mg tablet 2021-02 00:00: 00 Yes [facility] methocarbam oL 500 mg tablet 2021-02 00:00: 00 Yes [facility] traMADoL 50 mg tablet 2021-02 00:00: 00 Yes [facility] methocarbam oL 500 mg tablet 2021-02 00:00: 00 Yes [facility] traMADoL 50 mg tablet 2021-02 00:00: 00 Yes [facility] methocarbam oL 500 mg tablet 2021-02 00:00: 00 Yes [facility] traMADoL 50 mg tablet 2021-02 00:00: 00 Yes [facility] methocarbam oL 500 mg tablet 2021-02 00:00: 00 Yes [facility] traMADoL 50 mg tablet 2021-02 00:00: 00 Yes [facility] methocarbam oL 500 mg tablet 2021-02 00:00: 00 Yes [facility] traMADoL 50 mg tablet 2021-02 00:00: 00 Yes [facility] methocarbam oL 500 mg tablet 2021-02 00:00: 00 Yes [facility] traMADoL 50 mg tablet 2021-02 00:00: 00 Yes [facility] methocarbam oL 500 mg tablet 2021-02 00:00: 00 Yes [facility] traMADoL 50 mg tablet 2021-02 00:00: 00 Yes [facility] methocarbam oL 500 mg tablet 2021-02 00:00: 00 Yes [facility] traMADoL 50 mg tablet 2021-02 00:00: 00 Yes [facility] methocarbam oL 500 mg tablet 2021-02 00:00: 00 Yes [facility] traMADoL 50 mg tablet 2021-02 00:00: 00 Yes [facility] methocarbam oL 500 mg tablet 2021-02 00:00: 00 Yes [facility] traMADoL 50 mg tablet 2021-02 00:00: 00 Yes [facility] methocarbam oL 500 mg tablet 2021-02 00:00: 00 Yes [facility] traMADoL 50 mg tablet 2021-02 00:00: 00 Yes [facility] methocarbam oL 500 mg tablet 2021-02 00:00: 00 Yes [facility] traMADoL 50 mg tablet 2021-02 00:00: 00 Yes [facility] methocarbam oL 500 mg tablet 2021-02 00:00: 00 Yes [facility] traMADoL 50 mg tablet 2021-02 00:00: 00 Yes [facility] methocarbam oL 500 mg tablet 2021-02 00:00: 00 Yes [facility] traMADoL 50 mg tablet 2021-02 00:00: 00 Yes [facility] methocarbam oL 500 mg tablet 2021-02 00:00: 00 Yes [facility] traMADoL 50 mg tablet 2021-02 00:00: 00 Yes [facility] methocarbam oL 500 mg tablet 2021-02 00:00: 00 Yes [facility] traMADoL 50 mg tablet 2021-02 00:00: 00 Yes [facility] clonazePAM 1 mg tablet 2021-02 00:00: 00 Yes [facility] clonazePAM 1 mg tablet 2021-02 00:00: 00 Yes [facility] clonazePAM 1 mg tablet 2021-02 00:00: 00 Yes [facility] clonazePAM 1 mg tablet 2021-02 00:00: 00 Yes [facility] clonazePAM 1 mg tablet 2021-02 00:00: 00 Yes [facility] clonazePAM 1 mg tablet 2021-02 00:00: 00 Yes [facility] clonazePAM 1 mg tablet 2021-02 00:00: 00 Yes [facility] clonazePAM 1 mg tablet 2021-02 00:00: 00 Yes [facility] clonazePAM 1 mg tablet 2021-02 00:00: 00 Yes [facility] clonazePAM 1 mg tablet 2021-02 00:00: 00 Yes [facility] clonazePAM 1 mg tablet 2021-02 00:00: 00 Yes [facility] clonazePAM 1 mg tablet 2021-02 00:00: 00 Yes [facility] clonazePAM 1 mg tablet 2021-02 00:00: 00 Yes [facility] clonazePAM 1 mg tablet 2021-02 00:00: 00 Yes [facility] clonazePAM 1 mg tablet 2021-02 00:00: 00 Yes [facility] clonazePAM 1 mg tablet 2021-02 00:00: 00 Yes [facility] clonazePAM 1 mg tablet 2021-02 00:00: 00 Yes [facility] clonazePAM 1 mg tablet 2021-02 00:00: 00 Yes [facility] clonazePAM 1 mg tablet 2021-02 00:00: 00 Yes [facility] clonazePAM 1 mg tablet 2021-02 00:00: 00 Yes [facility] clonazePAM 1 mg tablet 2021-02 00:00: 00 Yes [facility] clonazePAM 1 mg tablet 2021-02 00:00: 00 Yes [facility] buprenor[place] ne-naloxone 8-2 mg sublingual film 2021-02 00:00: 00 Yes DISSOLVE 1/2 FILM UNDER THE TONGUE EVERY DAY [facility] b[place] ne-naloxone 8-2 mg sublingual film 2021-02 00:00: 00 Yes DISSOLVE 1/2 FILM UNDER THE TONGUE EVERY DAY [facility] [place] ne-naloxone 8-2 mg sublingual film 2021-02 00:00: 00 Yes DISSOLVE 1/2 FILM UNDER THE TONGUE EVERY DAY [facility] [place] ne-naloxone 8-2 mg sublingual film 2021-02 00:00: 00 Yes DISSOLVE 1/2 FILM UNDER THE TONGUE EVERY DAY [facility] [place] ne-naloxone 8-2 mg sublingual film 2021-02 00:00: 00 Yes DISSOLVE 1/2 FILM UNDER THE TONGUE EVERY DAY [facility] [place] ne-naloxone 8-2 mg sublingual film 2021-02 00:00: 00 Yes DISSOLVE 1/2 FILM UNDER THE TONGUE EVERY DAY [facility] [place] ne-naloxone 8-2 mg sublingual film 2021-02 00:00: 00 Yes DISSOLVE 1/2 FILM UNDER THE TONGUE EVERY DAY [facility] buprenorphi ne-naloxone 8-2 mg sublingual film 2021-02 00:00: 00 Yes DISSOLVE 1/2 FILM UNDER THE TONGUE EVERY DAY [facility] buprenorphi ne-naloxone 8-2 mg sublingual film 2021-02 00:00: 00 Yes DISSOLVE 1/2 FILM UNDER THE TONGUE EVERY DAY [facility] [place] ne-naloxone 8-2 mg sublingual film 2021-02 00:00: 00 Yes DISSOLVE 1/2 FILM UNDER THE TONGUE EVERY DAY [facility] bupren[place] ne-naloxone 8-2 mg sublingual film 2021-02 00:00: 00 Yes DISSOLVE 1/2 FILM UNDER THE TONGUE EVERY DAY [facility] [place] ne-naloxone 8-2 mg sublingual film 2021-02 00:00: 00 Yes DISSOLVE 1/2 FILM UNDER THE TONGUE EVERY DAY [facility] [place] ne-naloxone 8-2 mg sublingual film 2021-02 00:00: 00 Yes DISSOLVE 1/2 FILM UNDER THE TONGUE EVERY DAY [facility] [place] ne-naloxone 8-2 mg sublingual film 2021-02 00:00: 00 Yes DISSOLVE 1/2 FILM UNDER THE TONGUE EVERY DAY [facility] bupren[place] ne-naloxone 8-2 mg sublingual film 2021-02 00:00: 00 Yes DISSOLVE 1/2 FILM UNDER THE TONGUE EVERY DAY [facility] buprenorphi ne-naloxone 8-2 mg sublingual film 2021-02 00:00: 00 Yes DISSOLVE 1/2 FILM UNDER THE TONGUE EVERY DAY [facility] [place] ne-naloxone 8-2 mg sublingual film 2021-02 00:00: 00 Yes DISSOLVE 1/2 FILM UNDER THE TONGUE EVERY DAY [facility] buprenorphi ne-naloxone 8-2 mg sublingual film 2021-02 00:00: 00 Yes DISSOLVE 1/2 FILM UNDER THE TONGUE EVERY DAY [facility] buprenorphi ne-naloxone 8-2 mg sublingual film 2021-02 00:00: 00 Yes DISSOLVE 1/2 FILM UNDER THE TONGUE EVERY DAY [facility] buprenorphi ne-naloxone 8-2 mg sublingual film 2021-02 00:00: 00 Yes DISSOLVE 1/2 FILM UNDER THE TONGUE EVERY DAY [facility] buprenorphi ne-naloxone 8-2 mg sublingual film 2021-02 00:00: 00 Yes DISSOLVE 1/2 FILM UNDER THE TONGUE EVERY DAY [facility] buprenorphi ne-naloxone 8-2 mg sublingual film 2021-02 00:00: 00 Yes DISSOLVE 1/2 FILM UNDER THE TONGUE EVERY DAY [facility] gabapentin 300 mg capsule 03-01 00:00: 00 Yes TAKE ONE (1) CAPSULE(S) BY MOUTH FOUR TIMES A DAY NEEDED FOR WITHDRAWAL SYMPTOMS. [facility] gabapentin 300 mg capsule 2021-02 00:00: 00 Yes TAKE ONE (1) CAPSULE(S) BY MOUTH FOUR TIMES A DAY NEEDED FOR WITHDRAWAL SYMPTOMS. [facility] gabapentin 300 mg capsule 2021-02 00:00: 00 Yes TAKE ONE (1) CAPSULE(S) BY MOUTH FOUR TIMES A DAY NEEDED FOR WITHDRAWAL SYMPTOMS. [facility] gabapentin 300 mg capsule 2021-02 00:00: 00 Yes TAKE ONE (1) CAPSULE(S) BY MOUTH FOUR TIMES A DAY NEEDED FOR WITHDRAWAL SYMPTOMS. [facility] gabapentin 300 mg capsule 2021-02 00:00: 00 Yes TAKE ONE (1) CAPSULE(S) BY MOUTH FOUR TIMES A DAY NEEDED FOR WITHDRAWAL SYMPTOMS. [facility] gabapentin 300 mg capsule 2021-03-01 00:00: 00 Yes TAKE ONE (1) CAPSULE(S) BY MOUTH FOUR TIMES A DAY NEEDED FOR WITHDRAWAL SYMPTOMS. [facility] gabapentin 300 mg capsule 2021-03-01 00:00: 00 Yes TAKE ONE (1) CAPSULE(S) BY MOUTH FOUR TIMES A DAY NEEDED FOR WITHDRAWAL SYMPTOMS. [facility] gabapentin 300 mg capsule 2021-02 00:00: 00 Yes TAKE ONE (1) CAPSULE(S) BY MOUTH FOUR TIMES A DAY NEEDED FOR WITHDRAWAL SYMPTOMS. [facility] gabapentin 300 mg capsule 2021-03-01 00:00: 00 Yes TAKE ONE (1) CAPSULE(S) BY MOUTH FOUR TIMES A DAY NEEDED FOR WITHDRAWAL SYMPTOMS. [facility] gabapentin 300 mg capsule 2021-03-01 00:00: 00 Yes TAKE ONE (1) CAPSULE(S) BY MOUTH FOUR TIMES A DAY NEEDED FOR WITHDRAWAL SYMPTOMS. [facility] gabapentin 300 mg capsule 2021-03-01 00:00: 00 Yes TAKE ONE (1) CAPSULE(S) BY MOUTH FOUR TIMES A DAY NEEDED FOR WITHDRAWAL SYMPTOMS. [facility] gabapentin 300 mg capsule 2022-1 1-09 00:00: 00 Yes TAKE ONE (1) CAPSULE(S) BY MOUTH FOUR TIMES A DAY NEEDED FOR WITHDRAWAL SYMPTOMS. [facility] gabapentin 300 mg capsule 2021-02 00:00: 00 Yes TAKE ONE (1) CAPSULE(S) BY MOUTH FOUR TIMES A DAY NEEDED FOR WITHDRAWAL SYMPTOMS. [facility] gabapentin 300 mg capsule 2021-02 00:00: 00 Yes TAKE ONE (1) CAPSULE(S) BY MOUTH FOUR TIMES A DAY NEEDED FOR WITHDRAWAL SYMPTOMS. [facility] gabapentin 300 mg capsule 2021-02 00:00: 00 Yes TAKE ONE (1) CAPSULE(S) BY MOUTH FOUR TIMES A DAY NEEDED FOR WITHDRAWAL SYMPTOMS. [facility] gabapentin 300 mg capsule 2021-02 00:00: 00 Yes TAKE ONE (1) CAPSULE(S) BY MOUTH FOUR TIMES A DAY NEEDED FOR WITHDRAWAL SYMPTOMS. [facility] gabapentin 300 mg capsule 2021-02 00:00: 00 Yes TAKE ONE (1) CAPSULE(S) BY MOUTH FOUR TIMES A DAY NEEDED FOR WITHDRAWAL SYMPTOMS. [facility] gabapentin 300 mg capsule 2021-02 00:00: 00 Yes TAKE ONE (1) CAPSULE(S) BY MOUTH FOUR TIMES A DAY NEEDED FOR WITHDRAWAL SYMPTOMS. [facility] gabapentin 300 mg capsule 2021-02 00:00: 00 Yes TAKE ONE (1) CAPSULE(S) BY MOUTH FOUR TIMES A DAY NEEDED FOR WITHDRAWAL SYMPTOMS. [facility] gabapentin 300 mg capsule 2021-02 00:00: 00 Yes TAKE ONE (1) CAPSULE(S) BY MOUTH FOUR TIMES A DAY NEEDED FOR WITHDRAWAL SYMPTOMS. [facility] gabapentin 300 mg capsule 2021-02 00:00: 00 Yes TAKE ONE (1) CAPSULE(S) BY MOUTH FOUR TIMES A DAY NEEDED FOR WITHDRAWAL SYMPTOMS. [facility] gabapentin 300 mg capsule 2021-02 00:00: 00 Yes TAKE ONE (1) CAPSULE(S) BY MOUTH FOUR TIMES A DAY NEEDED FOR WITHDRAWAL SYMPTOMS. [facility] DULoxetine 60 mg capsule 2021-02 0-20 00:00: 00 Yes 60mg Take 60 mg by mouth in the morning. [facility] ALPRAZolam 0.5 mg tablet 2021-02 0-20 00:00: 00 Yes TAKE ONE (1) TABLET(S) BY MOUTH DAILY NEEDED. [facility] DULoxetine 60 mg capsule 2021-02 0-20 00:00: 00 Yes 60mg Take 60 mg by mouth in the morning. [facility] ALPRAZolam 0.5 mg tablet 2021-02 0-20 00:00: 00 Yes TAKE ONE (1) TABLET(S) BY MOUTH DAILY NEEDED. [facility] DULoxetine 60 mg capsule 2021-02 0- 00:00: 00 Yes 60mg Take 60 mg by mouth in the morning. [facility] ALPRAZolam 0.5 mg tablet 2021-02 0- 00:00: 00 Yes TAKE ONE (1) TABLET(S) BY MOUTH DAILY NEEDED. [facility] DULoxetine 60 mg capsule 2021-02 0- 00:00: 00 Yes 60mg Take 60 mg by mouth in the morning. [facility] ALPRAZolam 0.5 mg tablet 2021-02 0- 00:00: 00 Yes TAKE ONE (1) TABLET(S) BY MOUTH DAILY NEEDED. [facility] DULoxetine 60 mg capsule 2021-02 0- 00:00: 00 Yes 60mg Take 60 mg by mouth in the morning. [facility] ALPRAZolam 0.5 mg tablet 2021-02 0-20 00:00: 00 Yes TAKE ONE (1) TABLET(S) BY MOUTH DAILY NEEDED. [facility] DULoxetine 60 mg capsule 2021-02 0-20 00:00: 00 Yes 60mg Take 60 mg by mouth in the morning. [facility] ALPRAZolam 0.5 mg tablet 2021-02 0-20 00:00: 00 Yes TAKE ONE (1) TABLET(S) BY MOUTH DAILY NEEDED. [facility] DULoxetine 60 mg capsule 2021-02 0-20 00:00: 00 Yes 60mg Take 60 mg by mouth in the morning. [facility] ALPRAZolam 0.5 mg tablet 2021-02 0-20 00:00: 00 Yes TAKE ONE (1) TABLET(S) BY MOUTH DAILY NEEDED. [facility] DULoxetine 60 mg capsule 2021-02 0-20 00:00: 00 Yes 60mg Take 60 mg by mouth in the morning. [facility] ALPRAZolam 0.5 mg tablet 2021-02 0-20 00:00: 00 Yes TAKE ONE (1) TABLET(S) BY MOUTH DAILY NEEDED. [facility] DULoxetine 60 mg capsule 2021-02 0-20 00:00: 00 Yes 60mg Take 60 mg by mouth in the morning. [facility] ALPRAZolam 0.5 mg tablet 2021-02 0-20 00:00: 00 Yes TAKE ONE (1) TABLET(S) BY MOUTH DAILY NEEDED. [facility] DULoxetine 60 mg capsule 2021-02 0-20 00:00: 00 Yes 60mg Take 60 mg by mouth in the morning. [facility] ALPRAZolam 0.5 mg tablet 2021-02 0-20 00:00: 00 Yes TAKE ONE (1) TABLET(S) BY MOUTH DAILY NEEDED. [facility] DULoxetine 60 mg capsule 2021-02 0-20 00:00: 00 Yes 60mg Take 60 mg by mouth in the morning. [facility] ALPRAZolam 0.5 mg tablet 2021-02 0-20 00:00: 00 Yes TAKE ONE (1) TABLET(S) BY MOUTH DAILY NEEDED. [facility] DULoxetine 60 mg capsule 2021-02 0-20 00:00: 00 Yes 60mg Take 60 mg by mouth in the morning. [facility] ALPRAZolam 0.5 mg tablet 1 0-20 00:00: 00 Yes TAKE ONE (1) TABLET(S) BY MOUTH DAILY NEEDED. [facility] DULoxetine 60 mg capsule 2021-02 0-20 00:00: 00 Yes 60mg Take 60 mg by mouth in the morning. [facility] ALPRAZolam 0.5 mg tablet 2021-02 0-20 00:00: 00 Yes TAKE ONE (1) TABLET(S) BY MOUTH DAILY NEEDED. [facility] DULoxetine 60 mg capsule 2021-02 0-20 00:00: 00 Yes 60mg Take 60 mg by mouth in the morning. [facility] ALPRAZolam 0.5 mg tablet 2021-02 0-20 00:00: 00 Yes TAKE ONE (1) TABLET(S) BY MOUTH DAILY NEEDED. [facility] DULoxetine 60 mg capsule 2021-02 0-20 00:00: 00 Yes 60mg Take 60 mg by mouth in the morning. [facility] ALPRAZolam 0.5 mg tablet 2021-02 0- 00:00: 00 Yes TAKE ONE (1) TABLET(S) BY MOUTH DAILY NEEDED. [facility] DULoxetine 60 mg capsule 2021-02 0- 00:00: 00 Yes 60mg Take 60 mg by mouth in the morning. [facility] ALPRAZolam 0.5 mg tablet 2021-02 0- 00:00: 00 Yes TAKE ONE (1) TABLET(S) BY MOUTH DAILY NEEDED. [facility] DULoxetine 60 mg capsule 2021-02 0- 00:00: 00 Yes 60mg Take 60 mg by mouth in the morning. [facility] ALPRAZolam 0.5 mg tablet 2021-02 0- 00:00: 00 Yes TAKE ONE (1) TABLET(S) BY MOUTH DAILY NEEDED. [facility] DULoxetine 60 mg capsule 2021-02 0-20 00:00: 00 Yes 60mg Take 60 mg by mouth in the morning. [facility] ALPRAZolam 0.5 mg tablet 2021-02 0-20 00:00: 00 Yes TAKE ONE (1) TABLET(S) BY MOUTH DAILY NEEDED. [facility] DULoxetine 60 mg capsule 2021-02 0-20 00:00: 00 Yes 60mg Take 60 mg by mouth in the morning. [facility] ALPRAZolam 0.5 mg tablet 2021-02 0-20 00:00: 00 Yes TAKE ONE (1) TABLET(S) BY MOUTH DAILY NEEDED. [facility] DULoxetine 60 mg capsule 2021-02 0-20 00:00: 00 Yes 60mg Take 60 mg by mouth in the morning. [facility] ALPRAZolam 0.5 mg tablet 2021-02 0-20 00:00: 00 Yes TAKE ONE (1) TABLET(S) BY MOUTH DAILY NEEDED. [facility] DULoxetine 60 mg capsule 2021-02 0-20 00:00: 00 Yes 60mg Take 60 mg by mouth in the morning. [facility] ALPRAZolam 0.5 mg tablet 2021-02 020 00:00: 00 Yes TAKE ONE (1) TABLET(S) BY MOUTH DAILY NEEDED. [facility] DULoxetine 60 mg capsule 2021-02 0 00:00: 00 Yes 60mg Take 60 mg by mouth in the morning. [facility] ALPRAZolam 0.5 mg tablet 2021-02 0 00:00: 00 Yes TAKE ONE (1) TABLET(S) BY MOUTH DAILY NEEDED. [facility] REXULTI 1 mg Tab 2021- 019 00:00: 00 Yes 1{tbl} Take 1 tablet by mouth daily. [facility] REXULTI 1 mg Tab 2021-1 0 00:00: 00 Yes 1{tbl} Take 1 tablet by mouth daily. [facility] REXULTI 1 mg Tab 2021-1 019 00:00: 00 Yes 1{tbl} Take 1 tablet by mouth daily. [facility] REXULTI 1 mg Tab 2021-1 0-19 00:00: 00 Yes 1{tbl} Take 1 tablet by mouth daily. [facility] REXULTI 1 mg Tab 2-1 0-19 00:00: 00 Yes 1{tbl} Take 1 tablet by mouth daily. [facility] REXULTI 1 mg Tab 2-1 0-19 00:00: 00 Yes 1{tbl} Take 1 tablet by mouth daily. [facility] REXULTI 1 mg Tab 2021-1 0-19 00:00: 00 Yes 1{tbl} Take 1 tablet by mouth daily. [facility] REXULTI 1 mg Tab 2022-1 0-19 00:00: 00 Yes 1{tbl} Take 1 tablet by mouth daily. [facility] REXULTI 1 mg Tab 2-1 0-19 00:00: 00 Yes 1{tbl} Take 1 tablet by mouth daily. [facility] REXULTI 1 mg Tab 2022-1 0-19 00:00: 00 Yes 1{tbl} Take 1 tablet by mouth daily. [facility] REXULTI 1 mg Tab 2022-1 0-19 00:00: 00 Yes 1{tbl} Take 1 tablet by mouth daily. [facility] REXULTI 1 mg Tab 2-1 0-19 00:00: 00 Yes 1{tbl} Take 1 tablet by mouth daily. [facility] REXULTI 1 mg Tab 2-1 0-19 00:00: 00 Yes 1{tbl} Take 1 tablet by mouth daily. [facility] REXULTI 1 mg Tab 2-1 0-19 00:00: 00 Yes 1{tbl} Take 1 tablet by mouth daily. [facility] REXULTI 1 mg Tab 2-1 0-19 00:00: 00 Yes 1{tbl} Take 1 tablet by mouth daily. [facility] REXULTI 1 mg Tab 2-1 0-19 00:00: 00 Yes 1{tbl} Take 1 tablet by mouth daily. [facility] REXULTI 1 mg Tab 2022-1 0-19 00:00: 00 Yes 1{tbl} Take 1 tablet by mouth daily. [facility] REXULTI 1 mg Tab 2-1 0-19 00:00: 00 Yes 1{tbl} Take 1 tablet by mouth daily. [facility] REXULTI 1 mg Tab 2022-1 0-19 00:00: 00 Yes 1{tbl} Take 1 tablet by mouth daily. [facility] REXULTI 1 mg Tab 2022-1 0-19 00:00: 00 Yes 1{tbl} Take 1 tablet by mouth daily. [facility] REXULTI 1 mg Tab 2021- 019 00:00: 00 Yes 1{tbl} Take 1 tablet by mouth daily. [facility] REXULTI 1 mg Tab 2021-02 019 00:00: 00 Yes 1{tbl} Take 1 tablet by mouth daily. [facility] melatonin 3 mg tablet 2021- 0-13 00:00: 00 Yes [facility] melatonin 3 mg tablet 2021- 0-13 00:00: 00 Yes [facility] melatonin 3 mg tablet 2021- 0-13 00:00: 00 Yes [facility] melatonin 3 mg tablet 2021-02 0-13 00:00: 00 Yes [facility] melatonin 3 mg tablet 2021-02 0-13 00:00: 00 Yes [facility] melatonin 3 mg tablet 2021- 0-13 00:00: 00 Yes [facility] melatonin 3 mg tablet 2021- 0-13 00:00: 00 Yes [facility] melatonin 3 mg tablet 2021-02 0-13 00:00: 00 Yes [facility] melatonin 3 mg tablet 2021-02 0-13 00:00: 00 Yes [facility] melatonin 3 mg tablet 2021-02 0-13 00:00: 00 Yes [facility] melatonin 3 mg tablet 2021-1 0-13 00:00: 00 Yes [facility] melatonin 3 mg tablet 2021-1 0-13 00:00: 00 Yes [facility] melatonin 3 mg tablet 2021- 0-13 00:00: 00 Yes [facility] melatonin 3 mg tablet 2021- 0-13 00:00: 00 Yes [facility] melatonin 3 mg tablet 2021- 0-13 00:00: 00 Yes [facility] melatonin 3 mg tablet 2021-1 0-13 00:00: 00 Yes [facility] melatonin 3 mg tablet 2021-1 0-13 00:00: 00 Yes [facility] melatonin 3 mg tablet 2021-1 0-13 00:00: 00 Yes [facility] melatonin 3 mg tablet 2021- 0-13 00:00: 00 Yes [facility] melatonin 3 mg tablet 2021- 0-13 00:00: 00 Yes [facility] melatonin 3 mg tablet 2021- 0-13 00:00: 00 Yes [facility] melatonin 3 mg tablet 2021- 0-13 00:00: 00 Yes [facility] traZODone 50 mg tablet 2021- 0-09 00:00: 00 Yes [facility] traZODone 50 mg tablet 2021- 0-09 00:00: 00 Yes [facility] traZODone 50 mg tablet 2021- 0-09 00:00: 00 Yes [facility] traZODone 50 mg tablet 2021- 0-09 00:00: 00 Yes [facility] traZODone 50 mg tablet 2021-1 0-09 00:00: 00 Yes [facility] traZODone 50 mg tablet 2021-1 0-09 00:00: 00 Yes [facility] traZODone 50 mg tablet 2021- 0-09 00:00: 00 Yes [facility] traZODone 50 mg tablet 2021-1 0-09 00:00: 00 Yes [facility] traZODone 50 mg tablet 2021-1 0-09 00:00: 00 Yes [facility] traZODone 50 mg tablet 2021-1 0-09 00:00: 00 Yes [facility] traZODone 50 mg tablet 2021-1 0-09 00:00: 00 Yes [facility] traZODone 50 mg tablet 2021-1 0-09 00:00: 00 Yes [facility] traZODone 50 mg tablet 2021-1 0-09 00:00: 00 Yes [facility] traZODone 50 mg tablet 2021-1 0-09 00:00: 00 Yes [facility] traZODone 50 mg tablet 2022-1 0-09 00:00: 00 Yes [facility] traZODone 50 mg tablet 2021-1 0-09 00:00: 00 Yes [facility] traZODone 50 mg tablet 2021- 0-09 00:00: 00 Yes [facility] traZODone 50 mg tablet 2021-02 0-09 00:00: 00 Yes [facility] traZODone 50 mg tablet 2021-02 0-09 00:00: 00 Yes [facility] traZODone 50 mg tablet 2021- 0-09 00:00: 00 Yes [facility] traZODone 50 mg tablet 2021-02 0-09 00:00: 00 Yes [facility] traZODone 50 mg tablet 2021-02 009 00:00: 00 Yes [facility] Vital Signs Vital Name Observation Time Observation Value Comments S ource Body height 2022-02-24 19:11:00 167.6 cm [facility] Body weight 2022-02-24 19:11:00 73.483 kg [facility] BMI 2022-02-24 19:11:00 26.15 kg/m2 [facility] Body height 2022-02-10 19:00:00 167.6 cm [facility] Body weight 2022-02-10 19:00:00 73.483 kg [facility] BMI 2022-02-10 19:00:00 26.15 kg/m2 [facility] Body height 2022-01-19 19:06:00 167.6 cm [facility] Body weight 2022-01-19 19:06:00 73.483 kg [facility] BMI 2022-01-19 19:06:00 26.15 kg/m2 [facility] Systolic blood pressure 2021-02-04 22:48:00 123 mm[Hg] [facility] Diastolic blood pressure 2021-02-04 22:48:00 86 mm[Hg] [facility] Heart rate 2021-02-04 22:48:00 86 /min [facility] Body temperature 2021-02-04 22:48:00 37.22 Fernanda [facility] Respiratory rate 2021-02-04 22:48:00 18 /min [facility] Body weight 2021-02-04 22:48:00 79.379 kg [facility] Oxygen saturation in Arterial blood by Pulse oximetry 2021-02-04 22:48:00 100 /min [facility] Procedures Procedure Date / Time Performed Performing Clinician Source OP CORRESPONDENCE 2022-03-22 06:01:00 Doctor Alix ssigned, [facility] EXTERNAL PROVIDER RECORDS 2022-02-02 06:01:00 Do ctor Unassigned, [facility] BI SCREENING TOMOSYNTHESIS BILATERAL 2021-08-13 20:52:45 Requisition, Paper [facility] ASSIGNMENT OF BENEFITS 2021-08-13 20:18:45 Docto r Unassigned, [facility] CONSENT/REFUSAL FOR DIAGNOSIS AND TREATMENT 2021-02-04 22:43:49 Doctor Unassigned, [facility] NOTICE OF PRIVACY PRACTICES 2021-02-04 22:43:35 Doctor Unassigned, [facility] Encounters Start Date/Time End Date/Time Encounter Type Admission Type Attending Clinicians Care Facility Care Department Encounter ID Source 2022-12-17 00:00:00 2022-12-17 00:00:00 Outpatient [id number] [facility] [id number] [facility] 2022-04-23 00:00:00 2022-04-23 00:00:00 Beth Hale [facility] 1.2.840.114 350.1.13.10 4.2.7.2.686 [id number] [facility] 2022-04-22 16:15:00 2022-04-22 16:15:00 Outpatient BETH [facility]ODRIGEZ [facility] [id number] [facility] 2022-03-29 13:30:00 2022-03-29 13:30:00 Outpatient BETH RODRIGEZ [facility] [id number] [facility] 2022-03-22 00:00:00 2022-03-22 00:00:00 Orders Only Doctor Unassigned, [facility] 1.2.840.114 350.1.13.10 4.2.7.2.686 [id number] [facility] 2022-02-25 00:00:00 2022-02-25 00:00:00 Telephone BennettHoangarnulfo Fajardo [facility] 1.2.840.114 350.1.13.10 4.2.7.2.686 [id number] [facility] 2022-02-24 13:15:00 2022-02-24 23:59:00 Outpatient BETH RODRIGEZ [facility] [id number] [facility] 2022-02-24 13:00:00 2022-02-24 13:15:00 Office Visit Beth Reyes [facility] 1.2.840.114 350.1.13.10 4.2.7.2.686 [id number] [facility] 2022-02-24 00:00:00 2022-02-24 00:00:00 Telephone Bennett Jarrell Fajardo [facility] 1.2.840.114 350.1.13.10 4.2.7.2.686 [id number] [facility] 2022-02-22 14:15:00 2022-02-22 14:15:00 Outpatient BETH RODRIGEZ [facility] [id number] [facility] 2022-02-19 10:15:00 2022-02-19 10:15:00 Outpatient R AMY BETH [facility] [id number] [facility] 2022-02-19 09:45:00 2022-02-19 09:45:00 Outpatient R BETH REYES [facility] [id number] [facility] 2022-02-19 00:00:00 2022-02-19 00:00:00 Telephone Amy [facility] 1.2.840.114 350.1.13.10 4.2.7.2.686 [id number] [facility] 2022-02-12 00:00:00 2022-02-12 00:00:00 Telephone Amy [facility] 1.2.840.114 350.1.13.10 4.2.7.2.686 [id number] [facility] 2022-02-10 13:00:00 2022-02-10 13:46:47 Outpatient BETH RODRIGEZ [facility] [id number] [facility] 2022-02-10 13:00:00 2022-02-10 13:15:00 Office Visit Amy [facility] 1.2.840.114 350.1.13.10 4.2.7.2.686 [id number] [facility] 2022-02-08 14:45:00 2022-02-08 14:45:00 Outpatient BETH RODRIGEZ [facility] [id number] [facility] 2022-02-02 00:00:00 2022-02-02 00:00:00 Orders Only Doctor Unassigned, [facility] 1.2.840.114 350.1.13.10 4.2.7.2.686 [id number] [facility] 2022-01-28 10:15:00 2022-01-28 10:15:00 [facility] [id number] 2022-01-25 00:00:00 2022-01-25 00:00:00 Telephone Jarrell Bennett [facility] 1.2.840.114 350.1.13.10 4.2.7.2.686 [id number] [facility] 2022-01-25 00:00:00 2022-01-25 00:00:00 Telephone [facility] 1.2.840.114 350.1.13.10 4.2.7.2.686 [id number] [facility] 2022-01-22 00:00:00 2022-01-22 00:00:00 [facility] 1.2.840.114 350.1.13.10 4.2.7.2.686 [id number] [facility] 2022-01-20 00:00:00 2022-01-20 00:00:00 Telephone Beth Reyes [facility] 1.2.840.114 350.1.13.10 4.2.7.2.686 [id number] [facility] 2022-01-19 14:00:00 2022-01-19 14:04:00 Outpatient R JARRELL BENNETT [facility] [id number] [facility] 2022-01-19 13:00:00 2022-01-19 13:30:00 Office Visit Amy [facility] 1.2.840.114 350.1.13.10 4.2.7.2.686 [id number] [facility] 2021-11-16 15:15:00 2021-11-16 15:15:00 Outpatient R HAYDEE PINTO [facility]AL [facility] [id number] [facility] 2021-11-16 08:00:00 2021-11-16 08:00:00 Outpatient R HAYDEE PINTO CHERYAL [facility] [id number] [facility] 2021-08-13 15:25:11 2021-08-13 23:59:00 Outpatient R RADIOLOGY [facility] [id number] [facility] 2021-08-13 15:00:00 2021-08-13 23:59:00 Hospital Encounter Radiology [facility] 1.2.840.114 350.1.13.10 4.2.7.2.686 [id number] [facility] 2021-08-13 00:00:00 2021-08-13 00:00:00 Orders Only Doctor Unassigned, [facility] 1.2.840.114 350.1.13.10 4.2.7.2.686 [id number] [facility] 2021-02-04 16:50:00 2021-02-04 18:22:00 Emergency X Alyssa [facility] ERT [id number] [facility] 2021-02-04 16:50:00 2021-02-04 18:22:00 Emergency Alyssa Appiahge [facility] 1.2.840.114 350.1.13.10 4.2.7.2.686 [id number] [facility]
[2023-02-08 10:02] LABS: Absolute Lymphocytes (CBC) 0.3 K/uL (0.7-4.9); Hematocrit 39.8 % (36.0-45.0); Lymphocytes % 3.5 % (15.3-44.8); MCV 89.1 fL (80-100); MPV 7.4 fL (7.6-11.3); Platelets 286 thou/uL (152-406); RBC Red Blood Cell Count 4.47 M/uL (3.86-4.86)
[2023-02-08 10:14] LABS: Specific Gravity 1.022 (1.005-1.030); Urine Bilirubin NEGATIVE (Negative); Urine Blood Negative (Negative); Urine Clarity Clear (Clear); Urine Color Light-Yellow (Yellow); Urine Glucose NEGATIVE (Negative); Urine Protein NEGATIVE (Negative); Urine Urobilinogen Normal (Normal); Urine pH 7.5 (5.0-7.0)
[2023-02-08 10:27] LABS: Barbiturates NEGATIVE (NEGATIVE); Benzodiazepines NEGATIVE (NEGATIVE); Cocaine NEGATIVE (NEGATIVE); METHAMPHETAM POSITIVE (NEGATIVE); Methadone NEGATIVE (NEGATIVE); Opiates NEGATIVE (NEGATIVE); Phencyclidine NEGATIVE (NEGATIVE); THC Cannibis NEGATIVE (NEGATIVE)
[2023-02-08 10:38] LABS: Potassium 3.7 mEq/L (3.5-5.1)
[2023-02-08 10:39] LABS: Albumin 3.2 g/dL (3.4-5.0); Bilirubin Total 0.3 mg/dL (0.2-1.0); Protein, Total 6.6 g/dL (6.4-8.2)
--- NOTE | 2023-02-08 11:02 | ER ---
Nurse's Notes [facility] Name: Melissa Leavitt Age: 42 yrs Sex: Female : 1980 Arrival Date: 02/08/2023 Time: 09:27 Bed 20 Private MD: Diagnosis: Abuse of other non-psychoactive substances;Adverse effect of amphetamines;Unspecified symptoms and signs involving the musculoskeletal system;Headache Presentation: 02/08 09:33 Chief complaint: EMS states: toned out to [place] [employer] for pt with ld1 low back pain, body aches, headache. Pt reports using meth 2-3 times per week. Recent use 2 days ago. Coronavirus screen: At this time, the client does not indicate any symptoms associated with coronavirus-19. Ebola Screen: No symptoms or risks identified at this time. Initial Sepsis Screen: Does the patient meet any 2 criteria? No. Patient's initial sepsis screen is negative. Does the patient have a suspected source of infection? No. Patient's initial sepsis screen is negative. Risk Assessment: Do you want to hurt yourself or someone else? Patient reports no desire to harm self or others. Onset of symptoms was February 08, 2023. 09:33 Method Of Arrival: EMS: [facility] ld1 09:33 Acuity: FRIDA 3 ld1 Triage Assessment: 09:34 Headache History: The patient has had previous headaches and this one is similar to ld1 previous episodes. General: Appears in no apparent distress. comfortable, Behavior is calm, cooperative, appropriate for age. Pain: Complains of pain in face and back Pain does not radiate. Pain currently is 7 out of 10 on a pain scale. Quality of pain is described as throbbing, Pain began 4 hours ago. Is continuous, Also complains of no other associated symptoms. EENT: No signs and/or symptoms were reported regarding the EENT system. Neuro: Level of Consciousness is awake, alert, obeys commands, Oriented to person, place, time, situation. Neuro: Reports headache. Cardiovascular: Capillary refill < 3 seconds Patient's skin is warm and dry. Respiratory: Airway is patent Respiratory effort is even, unlabored. GI: Abdomen is flat, non-distended. : No signs and/or symptoms were reported regarding the genitourinary system. Derm: No signs and/or symptoms reported regarding the dermatologic system. Musculoskeletal: Reports pain in back. 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 - Social history:: Smoking status: Patient reports the use of cigarette tobacco products, denies chronic smoking, but will smoke occasionally, Patient uses street drugs, Methamphetamine (Meth). Screenin:36 [facility] ED Fall Risk Assessment (Adult) History of falling in the last 3 months, ld1 including since admission No falls in past 3 months (0 pts). Abuse screen: Denies threats or abuse. Denies injuries from another. Nutritional screening: No deficits noted. Tuberculosis screening: No symptoms or risk factors identified. Assessment: 09:36 Reassessment: See triage assessment. ld1 Vital Signs: 09:33 BP 126 / 75; Pulse 110; Resp 18; Temp 98.4(TE); Pulse Ox 99% on R/A; Weight 58.06 kg; ld1 Height 5 ft. 5 in. ; Pain 7/10; 10:21 BP 117 / 71; Pulse 92; Resp 15; Pulse Ox 100% on R/A; ld1 11:37 BP 122 / 72; Pulse 91; Resp 18; Pulse Ox 100% on R/A; ld1 09:33 Body Mass Index 21.30 (58.06 kg, 165.1 cm) ld1 09:33 Pain Scale: Adult ld1 Matteson Coma Score: 10:58 Eye Response: spontaneous(4). Motor Response: obeys commands(6). Verbal Response: jerry oriented(5). Total: 15. ED Course: 09:31 Patient arrived in ED. jerry 09:32 Samira Darden RN is Primary Nurse. ld1 09:34 Triage completed. ld1 09:34 Flex Castañeda MD is Attending Physician. jerry 09:34 Arm band placed on right wrist. ld1 09:36 Patient has correct armband on for positive identification. Placed in gown. Bed in low ld1 position. Call light in reach. Side rails up X2. property assessment monitor on. Pulse ox on. NIBP on. Door closed. Noise minimized. Warm blanket given. 09:36 No provider procedures requiring assistance completed. Maintain EMS IV. Dressing ld1 intact. Good blood return noted. Site clean \T\ dry. Gauge \T\ site: 20G RAC. :55 CBC with Diff Sent. ld1 :55 Comprehensive Metabolic Panel Sent. ld1 :55 Urinalysis w/ reflexes Sent. ld1 :55 PREGU Sent. ld1 :55 UDS Sent. ld1 :55 Flu Sent. ld1 11:38 IV discontinued, intact, bleeding controlled, No redness/swelling at site. ld1 Administered Medications: : Drug: NS 0.9% IV 1000 ml IV at 1 bolus Per protocol; 1000 mL bolus Route: IV; Rate: 1 ld1 bolus; Site: right antecubital; Drug: Ketorolac IVP 30 mg IVP once Route: IVP; Site: right antecubital; ld1 :55 Drug: Ondansetron IVP 4 mg IVP once; over 2 minutes Route: IVP; Site: right antecubital;ld1 Medication: 09:36 VIS not applicable for this client. ld1 Outcome: 11:02 Discharge ordered by . jerry 11:38 Discharged to [employer] Enforcement ld1 11:38 Condition: stable 11:38 Discharge instructions given to patient, police, Instructed on discharge instructions, follow up and referral plans. medication usage, Demonstrated understanding of instructions, follow-up care, medications, Prescriptions given X 1, 11:38 Patient left the ED. ld1 Signatures: Flex Castañeda MD MD cha Sims, Lauren, RN RN ld1
--- NOTE | 2023-02-08 11:02 | EDPHYS ---
Physician Documentation [facility] Name: Melissa Leavitt Age: 42 yrs Sex: Female : 1980 Arrival Date: 02/08/2023 Time: 09:27 Bed 20 Private MD: ED Physician Flex Castañeda HPI: 02/08 10:54 This 42 yrs old Female presents to ER via EMS with complaints of Headache, jerry Back Pain. 10:54 The patient complains of pain to the top of head, forehead, left frontal area, left jerry side of the back of head, right frontal area and right side of the back of head. The patient describes the headache as constant. MANAGER COMPLETIONS: 09:34 LMP N/A - Hysterectomy, Not ld1 Historical: - Allergies: 09:34 PENICILLINS; ld1 - PMHx: 09:34 anxiety/depression; ld1 - PSHx: 09:34 hysterectomy; ld1 - Immunization history:: Adult Immunizations up to date. - Social history:: Smoking status: Patient reports the use of cigarette tobacco products, denies chronic smoking, but will smoke occasionally, Patient uses street drugs, Methamphetamine (Meth). ROS: 10:55 Constitutional: Negative for fever, chills, and weight loss, Eyes: Negative for injury, jerry pain, redness, and discharge, ENT: Negative for injury, pain, and discharge, Neck: Negative for injury, pain, and swelling, Cardiovascular: Negative for chest pain, palpitations, and edema, Respiratory: Negative for shortness of breath, cough, wheezing, and pleuritic chest pain, Abdomen/GI: Negative for abdominal pain, nausea, vomiting, diarrhea, and constipation, : Negative for injury, bleeding, discharge, and swelling, MS/Extremity: Negative for injury and deformity, Skin: Negative for injury, rash, and discoloration, Neuro: Negative for headache, weakness, numbness, tingling, and seizure, Psych: Negative for depression, anxiety, suicide ideation, homicidal ideation, and hallucinations, Allergy/Immunology: Negative for hives, rash, and allergies, Endocrine: Negative for neck swelling, polydipsia, polyuria, polyphagia, and marked weight changes, Hematologic/Lymphatic: Negative for swollen nodes, abnormal bleeding, and unusual bruising, 10:55 Back: Positive for pain with movement, of the lumbar area, Exam: 10:55 Constitutional: This is a well developed, well nourished patient who is awake, alert, jerry and in no acute distress. Head/Face: Normocephalic, atraumatic. Eyes: Pupils equal round and reactive to light, extra-ocular motions intact. Lids and lashes normal. Conjunctiva and sclera are non-icteric and not injected. Cornea within normal limits. Periorbital areas with no swelling, redness, or edema. ENT: Nares patent. No nasal discharge, no septal abnormalities noted. Tympanic membranes are normal and external auditory canals are clear. Oropharynx with no redness, swelling, or masses, exudates, or evidence of obstruction, uvula midline. Mucous membranes moist. Neck: Trachea midline, no thyromegaly or masses palpated, and no cervical lymphadenopathy. Supple, full range of motion without nuchal rigidity, or vertebral point tenderness. No Meningismus. Chest/axilla: Normal chest wall appearance and motion. Nontender with no deformity. No lesions are appreciated. Cardiovascular: Regular rate and rhythm with a normal S1 and S2. No gallops, murmurs, or rubs. Normal PMI, no JVD. No pulse deficits. Respiratory: Lungs have equal breath sounds bilaterally, clear to auscultation and percussion. No rales, rhonchi or wheezes noted. No increased work of breathing, no retractions or nasal flaring. Abdomen/GI: Soft, non-tender, with normal bowel sounds. No distension or tympany. No guarding or rebound. No evidence of tenderness throughout. Skin: Warm, dry with normal turgor. Normal color with no rashes, no lesions, and no evidence of cellulitis. MS/ Extremity: Pulses equal, no cyanosis. Neurovascular intact. Full, normal range of motion. Neuro: Awake and alert, GCS 15, oriented to person, place, time, and situation. Cranial nerves II-XII grossly intact. Motor strength 5/5 in all extremities. Sensory grossly intact. Cerebellar exam normal. Normal gait. Psych: Awake, alert, with orientation to person, place and time. Behavior, mood, and affect are within normal limits. 10:55 Back: pain, that is very mild, ROM is normal, normal spinal alignment noted, CVA tenderness, is absent, muscle spasm, is not present, Vital Signs: 09:33 BP 126 / 75; Pulse 110; Resp 18; Temp 98.4(TE); Pulse Ox 99% on R/A; Weight 58.06 kg; ld1 Height 5 ft. 5 in. ; Pain 7/10; 10:21 BP 117 / 71; Pulse 92; Resp 15; Pulse Ox 100% on R/A; ld1 11:37 BP 122 / 72; Pulse 91; Resp 18; Pulse Ox 100% on R/A; ld1 09:33 Body Mass Index 21.30 (58.06 kg, 165.1 cm) ld1 09:33 Pain Scale: Adult ld1 Jessica Coma Score: 10:58 Eye Response: spontaneous(4). Motor Response: obeys commands(6). Verbal Response: jerry oriented(5). Total: 15. MDM: 09:34 Patient medically screened. jerry 10:58 Differential diagnosis: hyponatremia, migraine, temporal arteritis, tension headache. jerry Differential Diagnosis altered mental status, sepsis, flu. Data reviewed: vital signs, nurses notes, lab test result(s), EKG, radiologic studies, plain films. Consideration of Admission/Observation Escalation of care including admission/observation considered. I considered the following discharge prescriptions or medication management in the emergency department Medications were administered in the Emergency Department. See MAR. Test considered but Not performed: EKG: NO EKG. 02/08 09:42 Order name: CBC with Diff [facility] 02/08 09:42 Order name: Comprehensive Metabolic Panel; Complete Time: 10:53 [facility] 02/08 09:42 Order name: Urinalysis w/ reflexes; Complete Time: 10:53 [facility] 02/08 09:42 Order name: PREGU; Complete Time: 10:53 [facility] 02/08 09:42 Order name: UDS; Complete Time: 10:53 [facility] 02/08 09:42 Order name: Flu; Complete Time: 10:53 [facility] 02/08 09:42 Order name: Bilateral blood pressure; Complete Time: 09:55 [facility] Administered Medications: 09:55 Drug: NS 0.9% IV 1000 ml IV at 1 bolus Per protocol; 1000 mL bolus Route: IV; Rate: 1 ld1 bolus; Site: right antecubital; 09:55 Drug: Ketorolac IVP 30 mg IVP once Route: IVP; Site: right antecubital; ld1 09:55 Drug: Ondansetron IVP 4 mg IVP once; over 2 minutes Route: IVP; Site: right antecubital;ld1 Disposition Summary: 02/08/23 11:02 Discharge Ordered Notes: Location: Home jerry Problem: new jerry Symptoms: have improved jerry Condition: Stable jerry Diagnosis - Abuse of other non-psychoactive substances jerry - Adverse effect of amphetamines jerry - Unspecified symptoms and signs involving the musculoskeletal system jerry - Headache jerry Followup: jerry - With: Private Physician - When: 2 - 3 days - Reason: Recheck today's complaints, Re-evaluation by your physician Discharge Instructions: - Discharge Summary Sheet jerry - General Headache Without Cause jerry - Substance Use Disorder jerry - Methamphetamines Use Disorder jerry - General Headache Without Cause, [id number] jerry - Supporting Someone With Substance Use Disorder [facility] Forms: - Medication Reconciliation Form [facility] - Thank You Letter jerry - Antibiotic Education jerry - Prescription Opioid Use jerry - Patient Portal Instructions jerry - Leadership Thank You Letter jerry Prescriptions: - Ibuprofen 600 mg Oral tablet - take 1 tablet ORAL route every 6 hours As needed take with food; 15 tablet; [facility] Refills: 0, Product Selection Permitted Signatures: Dispatcher [employer] Flex Cruz MD MD cha Sims, Lauren, RN RN ld1
[2023-02-08 13:22] LABS: Blood Morphology Comment NOT SEEN (NOT SEEN); Platelet Estimate ADEQ; White Blood Cell Scan OK (OK)
[2023-02-08 14:42] VITALS: BP 122/72; TEMP 98.4; O2SAT 100
== END ==
LOC: ER 09:27
DX: R51.9 Headache, unspecified (principal); F55.8 Abuse of other non-psychoactive substances; T43.625A Adverse effect of amphetamines, initial encounter; R29.91 Unspecified symptoms and signs involving the musculoskeletal system
CPT/HCPCS: 36415; 80053; 80307; 81003; 81025; 85025; 87804; 96374; 96375; 99285; J2405; J7030

== ENCOUNTER → 2023-02-13 | Emergency (ER) | payer SELFPAY ==
--- OUTSIDE RECORDS SUMMARY | 2023-02-13 21:21 | XMS REPORT | Continuity of Care Document ---
Author Name Unknown Address [address] [place] [address] [facility] thconnect Address [address] [place] [address] Care Team Providers Care Uniforms Sales Representative Name Role Phone Pcp, Patient Does Not Have A Primary Care Physic srinivasan [email or web address] Attending Clinician UnavailBeth Umana Attending Clinician [phone] BETH REYES Attending Clinician Unavailable Doctor Unassigned, [place] Attending Clinician Jarrell Santos MD Attending Clinician [phone] JARRELL BENNETT Attending Clinician UnavailHAYDEE Hager Attending Clinician Unavaila HAYDEE Sanchez Attending Clinician Unavaila avtar RADIOLOGY Attending Clinician Unavailable Radiology Attending Clinician Unavailable Alyssa APPIAH Attending Clinician Unavailable Alyssa Gonzalez Attending Clinician [phone] [email or web address] Admitting Clinician Unavaila QUIRINO Johnson JR Admitting Clinician Unavail le Payers Payer Name Policy Type Policy Number Effective Date Expirati on Date Source Problems Condition Name Condition Details Condition Category Status Onset Date Resolution Date Last Treatment Date Treating Clinician Comments Source No known active problems No known active problems Disease [facility] Allergies, Adverse Reactions, Alerts Allergy Name Allergy Type Status Severity Reaction(s) Onset Date Inactive Date Treating Clinician Comments Source Penicill ins Propensi ty to adverse reaction s Active Unknown - See comments 2020-02 00:00[facility] Prop[facility] to adverse reaction s Active Unknown - See comments 2020-02 00:00: 00 [facility] PENICILL INS Drug Class Active Unknown-Cmnt 2020-02 00:00: 00 [facility] Penicill ins Propensi ty to adverse reaction s Active Unknown - See comments 2020-02 00:00: 00 [facility] NO KNOWN ALLERGIE S Drug Class Active [facility] Social History Social Habit Start Date Stop Date Quantity Comments Source Exposure to SARS-CoV-2 (event) 2022-02-14 00:00:00 2022-02-24 13:05:00 Not sure [facility] Alcohol intake 2022-02-24 00:00:00 2022-02-24 00:00:00 Lifetime non-drinker (finding) [facility] Tobacco use and exposure 2022-01-19 00:00:00 2022-01-19 00:00:00 Smokeless tobacco non-user [facility] Sex Assigned At 1980 00:00:00 1980 00:00:00 [facility] Smoking Status Start Date Stop Date Source Unknown if ever smoked [facility] Never smoked tobacco [facility] Medications Ordered Medication Name Filled Medication Name Start Date Stop Date Current Medication? Ordering Clinician Indication Dosage Frequency Signature (SIG) Comments Components Source methocarbam oL 500 mg tablet 2021-02 00:00: 00 Yes [facility] traMADoL 50 mg tablet 2021-02 00:00: 00 Yes [facility] methocarbam oL 500 mg tablet 2021-02 00:00: 00 Yes [facility] traMADoL 50 mg tablet 2021-02 00:00: 00 Yes [facility] methocarbam oL 500 mg tablet 2021-02 00:00: 00 [facility] tablet 2021-02 00:00: 00 Yes [facility] methocarbam oL 500 mg tablet 2021-02 00:00: 00 Yes [facility] traMADoL 50 mg tablet 2021-02 00:00: 00 Yes [facility] methocarbam oL 500 mg tablet 2021-02 00:00: 00 Yes [facility] traMADoL 50 mg tablet 2021-02 00:00: 00 Yes [facility] methocarbam oL 500 mg tablet 2021-02 00:00: 00 Yes [facility] traMADoL 50 mg tablet 2021-02 00:00: 00 Yes [facility] methocarbam oL 500 mg tablet 2021-02 00:00: 00 Yes [facility] traMADoL 50 mg tablet 2021-02 00:00: 00 Yes [facility] methocarbam oL 500 mg tablet 2021-02 00:00: 00 Yes [facility] traMADoL 50 mg tablet 2021-02 00:00: 00 Yes [facility] methocarbam oL 500 mg tablet 2021-02 00:00: 00 Yes [facility] traMADoL 50 mg tablet 2021-02 00:00: 00 Yes [facility] methocarbam oL 500 mg tablet 2021-02 00:00: 00 Yes [facility] traMADoL 50 mg tablet 2021-02 00:00: 00 Yes [facility] methocarbam oL 500 mg tablet 2021-02 00:00: 00 Yes [facility] traMADoL 50 mg tablet 2021-02 00:00: 00 Yes [facility] methocarbam oL 500 mg tablet 2021-02 00:00: 00 Yes [facility] traMADoL 50 mg tablet 2021-02 00:00: 00 Yes [facility] methocarbam oL 500 mg tablet 2021-02 00:00: 00 Yes [facility] traMADoL 50 mg tablet 2021-02 00:00: 00 Yes [facility] methocarbam oL 500 mg tablet 2021-02 00:00: 00 Yes [facility] traMADoL 50 mg tablet 2021-02 00:00: 00 Yes [facility] methocarbam oL 500 mg tablet 2021-02 00:00: 00 Yes [facility] traMADoL 50 mg tablet 2021-02 00:00: 00 Yes [facility] methocarbam oL 500 mg tablet 2021-02 00:00: 00 Yes [facility] traMADoL 50 mg tablet 2021-02 00:00: 00 Yes [facility] methocarbam oL 500 mg tablet 2021-02 00:00: 00 Yes [facility] traMADoL 50 mg tablet 2021-02 00:00: 00 Yes [facility] methocarbam oL 500 mg tablet 2021-02 00:00: 00 Yes [facility] traMADoL 50 mg tablet 2021-02 00:00: 00 Yes [facility] methocarbam oL 500 mg tablet 2021-02 00:00: 00 Yes [facility] traMADoL 50 mg tablet 2021-02 00:00: 00 Yes [facility] methocarbam oL 500 mg tablet 2021-02 00:00: 00 Yes [facility] traMADoL 50 mg tablet 2021-02 00:00: 00 Yes [facility] methocarbam oL 500 mg tablet 2021-02 00:00: 00 Yes [facility] traMADoL 50 mg tablet 2021-02 00:00: 00 Yes [facility] methocarbam oL 500 mg tablet 2021-02 00:00: 00 Yes [facility] traMADoL 50 mg tablet 2021-02 00:00: 00 Yes [facility] clonazePAM 1 mg tablet 2021-02 00:00: 00 Yes [facility] clonazePAM 1 mg tablet 2021-02 00:00: 00 Yes [facility] clonazePAM 1 mg tablet 2021-02 00:00: 00 Yes [facility] clonazePAM 1 mg tablet 2021-02 00:00: 00 Yes [facility] clonazePAM 1 mg tablet 2021-02 00:00: 00 Yes [facility] clonazePAM 1 mg tablet 2021-02 00:00: 00 Yes [facility] clonazePAM 1 mg tablet 2021-02 00:00: 00 Yes [facility] clonazePAM 1 mg tablet 2021-02 00:00: 00 Yes [facility] clonazePAM 1 mg tablet 2021-02 00:00: 00 Yes [facility] clonazePAM 1 mg tablet 2021-02 00:00: 00 Yes [facility] clonazePAM 1 mg tablet 2021-02 00:00: 00 Yes [facility] clonazePAM 1 mg tablet 2021-02 00:00: 00 Yes [facility] clonazePAM 1 mg tablet 2021-02 00:00: 00 Yes [facility] clonazePAM 1 mg tablet 2021-02 00:00: 00 Yes [facility] clonazePAM 1 mg tablet 2021-02 00:00: 00 Yes [facility] clonazePAM 1 mg tablet 2021-02 00:00: 00 Yes [facility] clonazePAM 1 mg tablet 2021-02 00:00: 00 Yes [facility] clonazePAM 1 mg tablet 2021-02 00:00: 00 Yes [facility] clonazePAM 1 mg tablet 2021-02 00:00: 00 Yes [facility] clonazePAM 1 mg tablet 2021-02 00:00: 00 Yes [facility] clonazePAM 1 mg tablet 2021-02 00:00: 00 Yes [facility] clonazePAM 1 mg tablet 2021-02 00:00: 00 Yes [facility] buprenorphi ne-naloxone 8-2 mg sublingual film 2021-02 00:00: 00 Yes DISSOLVE 1/2 FILM UNDER THE TONGUE EVERY DAY [facility] buprenorphi ne-naloxone 8-2 mg sublingual film 2021-02 00:00: 00 Yes DISSOLVE 1/2 FILM UNDER THE TONGUE EVERY DAY [facility] buprenorphi ne-naloxone 8-2 mg sublingual film 2021-02 00:00: 00 Yes DISSOLVE 1/2 FILM UNDER THE TONGUE EVERY DAY [facility] buprenorphi ne-naloxone 8-2 mg sublingual film 2021-02 00:00: 00 Yes DISSOLVE 1/2 FILM UNDER THE TONGUE EVERY DAY [facility] buprenorphi ne-naloxone 8-2 mg sublingual film 2021-02 00:00: 00 Yes DISSOLVE 1/2 FILM UNDER THE TONGUE EVERY DAY [facility] buprenorphi ne-naloxone 8-2 mg sublingual film 2021-02 00:00: 00 Yes DISSOLVE 1/2 FILM UNDER THE TONGUE EVERY DAY [facility] buprenorphi ne-naloxone 8-2 mg sublingual film 2021-02 00:00: 00 Yes DISSOLVE 1/2 FILM UNDER THE TONGUE EVERY DAY [facility] buprenorphi ne-naloxone 8-2 mg sublingual film 2021-02 00:00: 00 Yes DISSOLVE 1/2 FILM UNDER THE TONGUE EVERY DAY [facility] buprenorphi ne-naloxone 8-2 mg sublingual film 2021-02 00:00: 00 Yes DISSOLVE 1/2 FILM UNDER THE TONGUE EVERY DAY [facility] buprenor[place] ne-naloxone 8-2 mg sublingual film 2021-02 00:00: 00 Yes DISSOLVE 1/2 FILM UNDER THE TONGUE EVERY DAY [facility] buprenorphi ne-naloxone 8-2 mg sublingual film 2021-02 00:00: 00 Yes DISSOLVE 1/2 FILM UNDER THE TONGUE EVERY DAY [facility] buprenor[place] ne-naloxone 8-2 mg sublingual film 2021-02 00:00: 00 Yes DISSOLVE 1/2 FILM UNDER THE TONGUE EVERY DAY [facility] bupren[place] ne-naloxone 8-2 mg sublingual film 2021-02 00:00: 00 Yes DISSOLVE 1/2 FILM UNDER THE TONGUE EVERY DAY [facility] bupren[place] ne-naloxone 8-2 mg sublingual film 2021-02 00:00: 00 Yes DISSOLVE 1/2 FILM UNDER THE TONGUE EVERY DAY [facility] buprenor[place] ne-naloxone 8-2 mg sublingual film 2021-02 00:00: 00 Yes DISSOLVE 1/2 FILM UNDER THE TONGUE EVERY DAY [facility] buprenorphi ne-naloxone 8-2 mg sublingual film 2021-02 00:00: 00 Yes DISSOLVE 1/2 FILM UNDER THE TONGUE EVERY DAY [facility] bupren[place] ne-naloxone 8-2 mg sublingual film 2021-02 00:00: 00 Yes DISSOLVE 1/2 FILM UNDER THE TONGUE EVERY DAY [facility] buprenorphi ne-naloxone 8-2 mg sublingual film 2021-02 00:00: 00 Yes DISSOLVE 1/2 FILM UNDER THE TONGUE EVERY DAY [facility] buprenorphi ne-naloxone 8-2 mg sublingual film 2021-02 00:00: 00 Yes DISSOLVE 1/2 FILM UNDER THE TONGUE EVERY DAY [facility] buprenorphi ne-naloxone 8-2 mg sublingual film 2021-02 00:00: 00 Yes DISSOLVE 1/2 FILM UNDER THE TONGUE EVERY DAY [facility] buprenorphi ne-naloxone 8-2 mg sublingual film 2021-02 00:00: 00 Yes DISSOLVE 1/2 FILM UNDER THE TONGUE EVERY DAY [facility] buprenorphi ne-naloxone 8-2 mg sublingual film 2021-02 00:00: 00 Yes DISSOLVE 1/2 FILM UNDER THE TONGUE EVERY DAY [facility] gabapentin 300 mg capsule 2021-02 00:00: 00 Yes TAKE ONE (1) CAPSULE(S) BY MOUTH FOUR TIMES A DAY NEEDED FOR WITHDRAWAL SYMPTOMS. [facility] gabapentin 300 mg capsule 2021-02 00:00: 00 Yes TAKE ONE (1) CAPSULE(S) BY MOUTH FOUR TIMES A DAY NEEDED FOR WITHDRAWAL SYMPTOMS. [facility] gabapentin 300 mg capsule 2021-02 00:00: 00 Yes TAKE ONE (1) CAPSULE(S) BY MOUTH FOUR TIMES A DAY NEEDED FOR WITHDRAWAL SYMPTOMS. [facility] gabapentin 300 mg capsule 2021-02 00:00: 00 Yes TAKE ONE (1) CAPSULE(S) BY MOUTH FOUR TIMES A DAY NEEDED FOR WITHDRAWAL SYMPTOMS. [facility] gabapentin 300 mg capsule 2021-02 00:00: 00 Yes TAKE ONE (1) CAPSULE(S) BY MOUTH FOUR TIMES A DAY NEEDED FOR WITHDRAWAL SYMPTOMS. [facility] gabapentin 300 mg capsule 2021-02 00:00: 00 Yes TAKE ONE (1) CAPSULE(S) BY MOUTH FOUR TIMES A DAY NEEDED FOR WITHDRAWAL SYMPTOMS. [facility] gabapentin 300 mg capsule 2021-02 00:00: 00 Yes TAKE ONE (1) CAPSULE(S) BY MOUTH FOUR TIMES A DAY NEEDED FOR WITHDRAWAL SYMPTOMS. [facility] gabapentin 300 mg capsule 2021-02 00:00: 00 Yes TAKE ONE (1) CAPSULE(S) BY MOUTH FOUR TIMES A DAY NEEDED FOR WITHDRAWAL SYMPTOMS. [facility] gabapentin 300 mg capsule 2021-02 00:00: 00 Yes TAKE ONE (1) CAPSULE(S) BY MOUTH FOUR TIMES A DAY NEEDED FOR WITHDRAWAL SYMPTOMS. [facility] gabapentin 300 mg capsule 2021-02 00:00: 00 Yes TAKE ONE (1) CAPSULE(S) BY MOUTH FOUR TIMES A DAY NEEDED FOR WITHDRAWAL SYMPTOMS. [facility] gabapentin 300 mg capsule 2021-03-01 00:00: 00 Yes TAKE ONE (1) CAPSULE(S) BY MOUTH FOUR TIMES A DAY NEEDED FOR WITHDRAWAL SYMPTOMS. [facility] gabapentin 300 mg capsule 2021-02 00:00: 00 Yes TAKE ONE (1) CAPSULE(S) BY MOUTH FOUR TIMES A DAY NEEDED FOR WITHDRAWAL SYMPTOMS. [facility] gabapentin 300 mg capsule 2021-02 00:00: 00 Yes TAKE ONE (1) CAPSULE(S) BY MOUTH FOUR TIMES A DAY NEEDED FOR WITHDRAWAL SYMPTOMS. [facility] gabapentin 300 mg capsule 2021-02 00:00: 00 Yes TAKE ONE (1) CAPSULE(S) BY MOUTH FOUR TIMES A DAY NEEDED FOR WITHDRAWAL SYMPTOMS. [facility] gabapentin 300 mg capsule 2021-02 00:00: 00 Yes TAKE ONE (1) CAPSULE(S) BY MOUTH FOUR TIMES A DAY NEEDED FOR WITHDRAWAL SYMPTOMS. [facility] gabapentin 300 mg capsule 2021-02 00:00: 00 Yes TAKE ONE (1) CAPSULE(S) BY MOUTH FOUR TIMES A DAY NEEDED FOR WITHDRAWAL SYMPTOMS. [facility] gabapentin 300 mg capsule 2021-02 00:00: 00 Yes TAKE ONE (1) CAPSULE(S) BY MOUTH FOUR TIMES A DAY NEEDED FOR WITHDRAWAL SYMPTOMS. [facility] gabapentin 300 mg capsule 2021-02 00:00: 00 Yes TAKE ONE (1) CAPSULE(S) BY MOUTH FOUR TIMES A DAY NEEDED FOR WITHDRAWAL SYMPTOMS. [facility] gabapentin 300 mg capsule 2021-02 00:00: 00 Yes TAKE ONE (1) CAPSULE(S) BY MOUTH FOUR TIMES A DAY NEEDED FOR WITHDRAWAL SYMPTOMS. [facility] gabapentin 300 mg capsule 2021-02 00:00: 00 Yes TAKE ONE (1) CAPSULE(S) BY MOUTH FOUR TIMES A DAY NEEDED FOR WITHDRAWAL SYMPTOMS. [facility] gabapentin 300 mg capsule 2021-02 00:00: 00 Yes TAKE ONE (1) CAPSULE(S) BY MOUTH FOUR TIMES A DAY NEEDED FOR WITHDRAWAL SYMPTOMS. [facility] gabapentin 300 mg capsule 2021-02 00:00: 00 Yes TAKE ONE (1) CAPSULE(S) BY MOUTH FOUR TIMES A DAY NEEDED FOR WITHDRAWAL SYMPTOMS. [facility] DULoxetine 60 mg capsule 2021-02 0-20 00:00: 00 Yes 60mg Take 60 mg by mouth in the morning. [facility] ALPRAZolam 0.5 mg tablet 2021-02 0-20 00:00: 00 Yes TAKE ONE (1) TABLET(S) BY MOUTH DAILY NEEDED. [facility] DULoxetine 60 mg capsule 2021-02 0-20 00:00: 00 Yes 60mg Take 60 mg by mouth in the morning. [facility] ALPRAZolam 0.5 mg tablet 2021-02 0-20 00:00: 00 Yes TAKE ONE (1) TABLET(S) BY MOUTH DAILY NEEDED. [facility] DULoxetine 60 mg capsule 2021-02 0- 00:00: 00 Yes 60mg Take 60 mg by mouth in the morning. [facility] ALPRAZolam 0.5 mg tablet 2021-02 0- 00:00: 00 Yes TAKE ONE (1) TABLET(S) BY MOUTH DAILY NEEDED. [facility] DULoxetine 60 mg capsule 2021-02 0- 00:00: 00 Yes 60mg Take 60 mg by mouth in the morning. [facility] ALPRAZolam 0.5 mg tablet 2021-02 0- 00:00: 00 Yes TAKE ONE (1) TABLET(S) BY MOUTH DAILY NEEDED. [facility] DULoxetine 60 mg capsule 2021-02 0- 00:00: 00 Yes 60mg Take 60 mg by mouth in the morning. [facility] ALPRAZolam 0.5 mg tablet 2021-02 0-20 00:00: 00 Yes TAKE ONE (1) TABLET(S) BY MOUTH DAILY NEEDED. [facility] DULoxetine 60 mg capsule 2021-02 0-20 00:00: 00 Yes 60mg Take 60 mg by mouth in the morning. [facility] ALPRAZolam 0.5 mg tablet 2021-02 0-20 00:00: 00 Yes TAKE ONE (1) TABLET(S) BY MOUTH DAILY NEEDED. [facility] DULoxetine 60 mg capsule 2021-02 0-20 00:00: 00 Yes 60mg Take 60 mg by mouth in the morning. [facility] ALPRAZolam 0.5 mg tablet 2021-02 0-20 00:00: 00 Yes TAKE ONE (1) TABLET(S) BY MOUTH DAILY NEEDED. [facility] DULoxetine 60 mg capsule 2021-02 0-20 00:00: 00 Yes 60mg Take 60 mg by mouth in the morning. [facility] ALPRAZolam 0.5 mg tablet 2021-02 0-20 00:00: 00 Yes TAKE ONE (1) TABLET(S) BY MOUTH DAILY NEEDED. [facility] DULoxetine 60 mg capsule 2021-02 0-20 00:00: 00 Yes 60mg Take 60 mg by mouth in the morning. [facility] ALPRAZolam 0.5 mg tablet 2021-02 0-20 00:00: 00 Yes TAKE ONE (1) TABLET(S) BY MOUTH DAILY NEEDED. [facility] DULoxetine 60 mg capsule 2021-02 0-20 00:00: 00 Yes 60mg Take 60 mg by mouth in the morning. [facility] ALPRAZolam 0.5 mg tablet 2021-02 0-20 00:00: 00 Yes TAKE ONE (1) TABLET(S) BY MOUTH DAILY NEEDED. [facility] DULoxetine 60 mg capsule 2021-02 0-20 00:00: 00 Yes 60mg Take 60 mg by mouth in the morning. [facility] ALPRAZolam 0.5 mg tablet 2021-02 0-20 00:00: 00 Yes TAKE ONE (1) TABLET(S) BY MOUTH DAILY NEEDED. [facility] DULoxetine 60 mg capsule 2021-02 0-20 00:00: 00 Yes 60mg Take 60 mg by mouth in the morning. [facility] ALPRAZolam 0.5 mg tablet 2021-02 0-20 00:00: 00 Yes TAKE ONE (1) TABLET(S) BY MOUTH DAILY NEEDED. [facility] DULoxetine 60 mg capsule 2021-02 0-20 00:00: 00 Yes 60mg Take 60 mg by mouth in the morning. [facility] ALPRAZolam 0.5 mg tablet 2021-02 0-20 00:00: 00 Yes TAKE ONE (1) TABLET(S) BY MOUTH DAILY NEEDED. [facility] DULoxetine 60 mg capsule 2021-02 0-20 00:00: 00 Yes 60mg Take 60 mg by mouth in the morning. [facility] ALPRAZolam 0.5 mg tablet 2021-02 0-20 00:00: 00 Yes TAKE ONE (1) TABLET(S) BY MOUTH DAILY NEEDED. [facility] DULoxetine 60 mg capsule 2021-02 0-20 00:00: 00 Yes 60mg Take 60 mg by mouth in the morning. [facility] ALPRAZolam 0.5 mg tablet 2021-02 0- 00:00: 00 Yes TAKE ONE (1) TABLET(S) BY MOUTH DAILY NEEDED. [facility] DULoxetine 60 mg capsule 2021-02 0- 00:00: 00 Yes 60mg Take 60 mg by mouth in the morning. [facility] ALPRAZolam 0.5 mg tablet 2021-02 0- 00:00: 00 Yes TAKE ONE (1) TABLET(S) BY MOUTH DAILY NEEDED. [facility] DULoxetine 60 mg capsule 2021-02 0- 00:00: 00 Yes 60mg Take 60 mg by mouth in the morning. [facility] ALPRAZolam 0.5 mg tablet 2021-02 0- 00:00: 00 Yes TAKE ONE (1) TABLET(S) BY MOUTH DAILY NEEDED. [facility] DULoxetine 60 mg capsule 2021-02 0-20 00:00: 00 Yes 60mg Take 60 mg by mouth in the morning. [facility] ALPRAZolam 0.5 mg tablet 2021-02 0-20 00:00: 00 Yes TAKE ONE (1) TABLET(S) BY MOUTH DAILY NEEDED. [facility] DULoxetine 60 mg capsule 2021-02 0-20 00:00: 00 Yes 60mg Take 60 mg by mouth in the morning. [facility] ALPRAZolam 0.5 mg tablet 2021-02 0-20 00:00: 00 Yes TAKE ONE (1) TABLET(S) BY MOUTH DAILY NEEDED. [facility] DULoxetine 60 mg capsule 2021-02 0-20 00:00: 00 Yes 60mg Take 60 mg by mouth in the morning. [facility] ALPRAZolam 0.5 mg tablet 2021-02 0-20 00:00: 00 Yes TAKE ONE (1) TABLET(S) BY MOUTH DAILY NEEDED. [facility] DULoxetine 60 mg capsule 2021-02 0-20 00:00: 00 Yes 60mg Take 60 mg by mouth in the morning. [facility] ALPRAZolam 0.5 mg tablet 2021-02 020 00:00: 00 Yes TAKE ONE (1) TABLET(S) BY MOUTH DAILY NEEDED. [facility] DULoxetine 60 mg capsule 2021-02 0 00:00: 00 Yes 60mg Take 60 mg by mouth in the morning. [facility] ALPRAZolam 0.5 mg tablet 2021-02 0 00:00: 00 Yes TAKE ONE (1) TABLET(S) BY MOUTH DAILY NEEDED. [facility] REXULTI 1 mg Tab 2021- 019 00:00: 00 Yes 1{tbl} Take 1 tablet by mouth daily. [facility] REXULTI 1 mg Tab 2021-1 0 00:00: 00 Yes 1{tbl} Take 1 tablet by mouth daily. [facility] REXULTI 1 mg Tab 2021-1 019 00:00: 00 Yes 1{tbl} Take 1 tablet by mouth daily. [facility] REXULTI 1 mg Tab 2021-1 0-19 00:00: 00 Yes 1{tbl} Take 1 tablet by mouth daily. [facility] REXULTI 1 mg Tab 2-1 0-19 00:00: 00 Yes 1{tbl} Take 1 tablet by mouth daily. [facility] REXULTI 1 mg Tab 2-1 0-19 00:00: 00 Yes 1{tbl} Take 1 tablet by mouth daily. [facility] REXULTI 1 mg Tab 2-1 0-19 00:00: 00 Yes 1{tbl} Take 1 tablet by mouth daily. [facility] REXULTI 1 mg Tab 2022-1 0-19 00:00: 00 Yes 1{tbl} Take 1 tablet by mouth daily. [facility] REXULTI 1 mg Tab 2-1 0-19 00:00: 00 Yes 1{tbl} Take 1 tablet by mouth daily. [facility] REXULTI 1 mg Tab 2-1 0-19 00:00: 00 Yes 1{tbl} Take 1 tablet by mouth daily. [facility] REXULTI 1 mg Tab 2-1 0-19 00:00: 00 Yes 1{tbl} Take 1 tablet by mouth daily. [facility] REXULTI 1 mg Tab 2-1 0-19 00:00: 00 Yes 1{tbl} Take 1 tablet by mouth daily. [facility] REXULTI 1 mg Tab 2-1 0-19 00:00: 00 Yes 1{tbl} Take 1 tablet by mouth daily. [facility] REXULTI 1 mg Tab 2-1 0-19 00:00: 00 Yes 1{tbl} Take 1 tablet by mouth daily. [facility] REXULTI 1 mg Tab 2-1 019 00:00: 00 Yes 1{tbl} Take 1 tablet by mouth daily. [facility] REXULTI 1 mg Tab 2-1 0-19 00:00: 00 Yes 1{tbl} Take 1 tablet by mouth daily. [facility] REXULTI 1 mg Tab 2-1 0-19 00:00: 00 Yes 1{tbl} Take 1 tablet by mouth daily. [facility] REXULTI 1 mg Tab 2-1 0-19 00:00: 00 Yes 1{tbl} Take 1 tablet by mouth daily. [facility] REXULTI 1 mg Tab 2-1 0-19 00:00: 00 Yes 1{tbl} Take 1 tablet by mouth daily. [facility] REXULTI 1 mg Tab 2022-1 0-19 00:00: 00 Yes 1{tbl} Take 1 tablet by mouth daily. [facility] REXULTI 1 mg Tab 2021- 0-19 00:00: 00 Yes 1{tbl} Take 1 tablet by mouth daily. [facility] REXULTI 1 mg Tab 2021- 019 00:00: 00 Yes 1{tbl} Take 1 tablet by mouth daily. [facility] melatonin 3 mg tablet 2021- 0-13 00:00: 00 Yes [facility] melatonin 3 mg tablet 2021- 0-13 00:00: 00 Yes [facility] melatonin 3 mg tablet 2021- 0-13 00:00: 00 Yes [facility] melatonin 3 mg tablet 2021- 0-13 00:00: 00 Yes [facility] melatonin 3 mg tablet 2021-02 0-13 00:00: 00 Yes [facility] melatonin 3 mg tablet 2021-1 0-13 00:00: 00 Yes [facility] melatonin 3 mg tablet 2021- 0-13 00:00: 00 Yes [facility] melatonin 3 mg tablet 2021- 0-13 00:00: 00 Yes [facility] melatonin 3 mg tablet 2021-02 0-13 00:00: 00 Yes [facility] melatonin 3 mg tablet 2021-02 0-13 00:00: 00 Yes [facility] melatonin 3 mg tablet 2021- 0-13 00:00: 00 Yes [facility] melatonin 3 mg tablet 2021-1 0-13 00:00: 00 Yes [facility] melatonin 3 mg tablet 2021-1 0-13 00:00: 00 Yes [facility] melatonin 3 mg tablet 2021- 0-13 00:00: 00 Yes [facility] melatonin 3 mg tablet 2021- 0-13 00:00: 00 Yes [facility] melatonin 3 mg tablet 2021-1 0-13 00:00: 00 Yes [facility] melatonin 3 mg tablet 2021-1 0-13 00:00: 00 Yes [facility] melatonin 3 mg tablet 2021-1 0-13 00:00: 00 Yes [facility] melatonin 3 mg tablet 2021- 0-13 00:00: 00 Yes [facility] melatonin 3 mg tablet 2021- 0-13 00:00: 00 Yes [facility] melatonin 3 mg tablet 2021- 0-13 00:00: 00 Yes [facility] melatonin 3 mg tablet 2021- 0-13 00:00: 00 Yes [facility] traZODone 50 mg tablet 2021- 0-09 00:00: 00 Yes [facility] traZODone 50 mg tablet 2021- 0-09 00:00: 00 Yes [facility] traZODone 50 mg tablet 2021- 0-09 00:00: 00 Yes [facility] traZODone 50 mg tablet 2021- 0-09 00:00: 00 Yes [facility] traZODone 50 mg tablet 2021-1 0-09 00:00: 00 Yes [facility] traZODone 50 mg tablet 2021-1 0-09 00:00: 00 Yes [facility] traZODone 50 mg tablet 2021-1 0-09 00:00: 00 Yes [facility] traZODone 50 mg tablet 2021-1 0-09 00:00: 00 Yes [facility] traZODone 50 mg tablet 2021-1 0-09 00:00: 00 Yes [facility] traZODone 50 mg tablet 2021-1 0-09 00:00: 00 Yes [facility] traZODone 50 mg tablet 2021-1 0-09 00:00: 00 Yes [facility] traZODone 50 mg tablet 2021-1 0-09 00:00: 00 Yes [facility] traZODone 50 mg tablet 2021-1 0-09 00:00: 00 Yes [facility] traZODone 50 mg tablet 2-1 0-09 00:00: 00 Yes [facility] traZODone 50 mg tablet 2021-1 0-09 00:00: 00 Yes [facility] traZODone 50 mg tablet 2021-1 0-09 00:00: 00 Yes [facility] traZODone 50 mg tablet 2021- 0-09 00:00: 00 Yes [facility] traZODone 50 mg tablet 2021- 0-09 00:00: 00 Yes [facility] traZODone 50 mg tablet 2021- 0-09 00:00: 00 Yes [facility] traZODone 50 mg tablet 2021- 0-09 00:00: 00 Yes [facility] traZODone 50 mg tablet 2021-02 0-09 00:00: 00 Yes [facility] traZODone 50 mg tablet 2021-02 0-09 00:00: 00 Yes [facility] Vital Signs Vital Name Observation Time Observation Value Comments S ource Body height 2022-02-24 19:11:[address] [facility] Body weight 2022-02-24 19:11:[address] [facility] BMI 2022-02-24 19:11:00 26.15 kg/m2 [facility] Body height 2022-02-10 19:00:[address] [facility] [place] Body weight 2022-02-10 19:00:[address] [facility] BMI 2022-02-10 19:00:00 26.15 kg/m2 [facility] Body height 2022-01-19 19:06:[address] [facility] Body weight 2022-01-19 19:06:[address] [facility] BMI 2022-01-19 19:06:00 26.15 kg/m2 [facility] Systolic blood pressure 2021-02-04 22:48:00 123 mm[Hg] [facility] Diastolic blood pressure 2021-02-04 22:48:00 86 mm[Hg] [facility] Heart rate 2021-02-04 22:48:00 86 /min [facility] Body temperature 2021-02-04 22:48:00 37.22 Fernanda [facility] Respiratory rate 2021-02-04 22:48:00 18 /min [facility] Body weight 2021-02-04 22:48:00 79.379 kg Univ [facility] Oxygen saturation in Arterial blood by Pulse oximetry 2021-02-04 22:48:00 100 /min [place] o [facility] Procedures Procedure Date / Time Performed Performing Clinician Source OP CORRESPONDENCE 2022-03-22 06:01:00 Doctor Alix ssigned, [place] [facility] EXTERNAL PROVIDER RECORDS 2022-02-02 06:01:00 Do ctor Unassigned, [facility] BI SCREENING TOMOSYNTHESIS BILATERAL 2021-08-13 20:52:45 Requisition, Paper [facility] ASSIGNMENT OF BENEFITS 2021-08-13 20:18:45 Docto r Unassigned, [facility] CONSENT/REFUSAL FOR DIAGNOSIS AND TREATMENT 2021-02-04 22:43:49 Doctor Unassigned, [facility] NOTICE OF PRIVACY PRACTICES 2021-02-04 22:43:35 Doctor Unassigned, [facility] Encounters Start Date/Time End Date/Time Encounter Type Admission Type Attending Clinicians Care Facility Care Department Encounter ID Source 2022-12-17 00:00:00 2022-12-17 00:00:00 Outpatient [id number] [facility] [id number] [facility] 2022-04-23 00:00:00 2022-04-23 00:00:00 Telephone Beth Reyes [facility] 1.2.840.114 350.1.13.10 4.2.7.2.[id number] [facility] 2022-04-22 16:15:00 2022-04-22 16:15:00 Outpatient R BETH REYES [facility] [id number] [facility] 2022-03-29 13:30:00 2022-03-29 13:30:00 Outpatient R BETH REYES [facility] [id number] [facility] 2022-03-22 00:00:00 2022-03-22 00:00:00 Orders Only Doctor Unassigned, [place] [facility] 1.2.840.114 350.1.13.10 4.2.7.2.[id number] [facility] 2022-02-25 00:00:00 2022-02-25 00:00:00 Telephone Jarrell Bennett [facility] 1.2.840.114 350.1.13.10 4.2.7.2.[id number] [facility] 2022-02-24 13:15:00 2022-02-24 23:59:00 Outpatient BETH RODRIGEZ [facility] [id number] [facility] 2022-02-24 13:00:00 2022-02-24 13:15:00 Office Visit Beth Reyes [facility] 1.2.840.114 350.1.13.10 4.2.7.2.[id number] [facility] 2022-02-24 00:00:00 2022-02-24 00:00:00 Telephone BennettHoangarnulfo Fajardo [facility] 1.2.840.114 350.1.13.10 4.2.7.2.[id number] [facility] 2022-02-22 14:15:00 2022-02-22 14:15:00 Outpatient BETH RODRIGEZ [facility] [id number] [facility] 2022-02-19 10:15:00 2022-02-19 10:15:00 Outpatient R BETH REYES [facility] [id number] [facility] 2022-02-19 09:45:00 2022-02-19 09:45:00 Outpatient R BETH REYES [facility] [id number] [facility] 2022-02-19 00:00:00 2022-02-19 00:00:00 Telephone Hannah [facility] [place]?[facility] 1.2.840.114 350.1.13.10 4.2.7.2.[id number] [facility] 2022-02-12 00:00:00 2022-02-12 00:00:00 Telephone Hannah [facility] [place]?[facility] 1.2.840.114 350.1.13.10 4.2.7.2.[id number] [facility] 2022-02-10 13:00:00 2022-02-10 13:46:47 Outpatient R ADITYA REYESTT [facility] [id number] [facility] 2022-02-10 13:00:00 2022-02-10 13:15:00 Office Visit Hannah [facility] 1.2.840.114 350.1.13.10 4.2.7.2.[id number] [facility] 2022-02-08 14:45:00 2022-02-08 14:45:00 Outpatient BETH RODRIGEZ [facility] [id number] [facility] 2022-02-02 00:00:00 2022-02-02 00:00:00 Orders Only Doctor Unassigned, [place] [facility] 1.2.840.114 350.1.13.10 4.2.7.2.[id number] [facility] 2022-01-28 10:15:00 2022-01-28 10:15:00 [id number] 2022-01-25 00:00:00 2022-01-25 00:00:00 Telephone Jarrell Bennett [facility] [place]?[facility] 1.2.840.114 350.1.13.10 4.2.7.2.[id number] [facility] 2022-01-25 00:00:00 2022-01-25 00:00:[address] [facility] 1.2.840.114 350.1.13.10 4.2.7.2.[id number] [facility] 2022-01-22 00:00:00 2022-01-22 00:00:00 Telephone [facility] 1.2.840.114 350.1.13.10 4.2.7.2.[id number] [facility] 2022-01-20 00:00:00 2022-01-20 00:00:00 Telephone Beth Reyes [facility] [place]?[facility] 1.2.840.114 350.1.13.10 4.2.7.2.[id number] [facility] 2022-01-19 14:00:00 2022-01-19 14:04:00 Outpatient R JARRELL BENNETT [facility] [id number] [facility] 2022-01-19 13:00:00 2022-01-19 13:30:00 Office Visit Hannah [facility] [place]?[facility] 1.2.840.114 350.1.13.10 4.2.7.2.[id number] [facility] 2021-11-16 15:15:00 2021-11-16 15:15:00 Outpatient R HAYDEE PINTO CHERYAL [facility] [id number] [facility] 2021-11-16 08:00:00 2021-11-16 08:00:00 Outpatient R HAYDEE PINTO CHERYAL [facility] [id number] [facility] 2021-08-13 15:25:11 2021-08-13 23:59:00 Outpatient R RADIOLOGY [facility] [id number] [facility] 2021-08-13 15:00:00 2021-08-13 23:59:00 Hospital Encounter Radiology [facility] 1.2.840.114 350.1.13.10 4.2.7.2.[id number] [facility] 2021-08-13 00:00:00 2021-08-13 00:00:00 Orders Only Doctor Unassigned, [place] [facility] 1.2.840.114 350.1.13.10 4.2.7.2.[id number] [facility] 2021-02-04 16:50:00 2021-02-04 18:22:00 Emergency X Alyssa [facility] E[facility] [id number] [facility] 2021-02-04 16:50:00 2021-02-04 18:22:00 Emergency Alyssa Appiahge [facility] 1.2.840.114 350.1.13.10 4.2.7.2.[id number] [facility]
[2023-02-13 22:32] LABS: Protime INR 0.93
[2023-02-13 22:33] LABS: Absolute Lymphocytes (CBC) 2.8 K/uL (0.7-4.9); Hematocrit 44.9 % (36.0-45.0); Lymphocytes % 46.9 % (15.3-44.8); MCV 88.2 fL (80-100); Platelets 274 thou/uL (152-406)
[2023-02-13 22:48] LABS: ALT/SGPT 67 U/L (13-56); AST/SGOT 28 U/L (15-37); Albumin 3.3 g/dL (3.4-5.0); Alkaline Phosphatase 76 U/L (45-117); BUN Blood Urea Nitrogen 18 mg/dL (7-18); Bicarbonate 30 mEq/L (21-32); Bilirubin Total 0.3 mg/dL (0.2-1.0); Glomerular Filtration Rate 84 ml/min (=/>90); Glucose Level 126 mg/dL (74-106); Potassium 3.4 mEq/L (3.5-5.1); Protein, Total 7.2 g/dL (6.4-8.2); Sodium Level 139 mEq/L (136-145)
[2023-02-13 22:53] LABS: Bilirubin Direct < 0.1 mg/dL (0-0.2); Bilirubin Indirect, Calculated ND mg/dL (0.2-0.8)
--- NOTE | 2023-02-13 23:01 | EDPHYS ---
Physician Documentation [facility] Name: Melissa Leavitt Age: 42 yrs Sex: Female : 1980 Arrival Date: 02/13/2023 Time: 21:16 Bed 18 Private MD: ED Physician Alden Muse HPI: 02/13 21:59 This 42 yrs old Female presents to ER via [employer] with complaints of AUDITORY sb4 HALLUCINATIONS. 21:59 The patient presents to the emergency department with paranoia, psychosis, has sb4 experienced auditory hallucinations, a history of substance abuse, Type: methamphetamines. Onset: The symptoms/episode began/occurred 2 day(s) ago. Past psychiatric history: Prior diagnosis: depression, Psychiatric medications include: none, Primary psychiatric physician: the patient does not have a primary psychiatric physician, it is unknown whether or not the patient has had a prior suicide gesture, the patient does not have a previous inpatient psychiatric history, the patient's last psychiatric treatment was none. Associated signs and symptoms: Pertinent negatives: homicidal ideation, suicide ideation. Historical: - Allergies: 21:41 PENICILLINS; cm10 - PMHx: 21:41 anxiety/depression; cm10 - PSHx: 21:41 hysterectomy; cm10 - Immunization history:: Adult Immunizations unknown. - Social history:: Smoking status: Patient reports the use of cigarette tobacco products, denies chronic smoking, but will smoke occasionally, Patient uses street drugs, Methamphetamine (Meth). ROS: 22:01 Constitutional: Negative for fever, chills, and weight loss, sb4 22:01 Psych: Positive for auditory hallucinations, 22:01 All other systems are negative, Exam: 22:01 Constitutional: This is a well developed, well nourished patient who is awake, alert, sb4 and in no acute distress. Head/Face: Normocephalic, atraumatic. Eyes: Extra-ocular motions intact. Periorbital areas with no swelling, redness, or edema. ENT: Mucous membranes moist. Cardiovascular: Regular rate and rhythm with a normal S1 and S2. Respiratory: Lungs have equal breath sounds bilaterally, clear to auscultation and percussion. No rales, rhonchi or wheezes noted. No increased work of breathing, no retractions or nasal flaring. Abdomen/GI: Soft, non-tender, no distension. Skin: Warm, dry with normal turgor. Normal color with no rashes, no lesions, and no evidence of cellulitis. MS/ Extremity: Pulses equal, no cyanosis. Neurovascular intact. Full, normal range of motion. Neuro: Awake and alert, GCS 15, oriented to person, place, time, and situation. Motor strength 5/5 in all extremities. Sensory grossly intact. 22:01 Psych: Behavior/mood is pleasant, cooperative, Affect is calm, Oriented to person, place, time, Patient has no thoughts/intents to harm self or others. Judgement / Insight is impaired. Delusions/hallucinations are present and described as says that she hears the voices of her family telling her to come save them. states she hears them when she is around machines or things emitting high frequencies. is paranoid about having a microchip in her brain . Vital Signs: 21:37 BP 110 / 87; Pulse 80; Resp 16; Temp 98.2; Pulse Ox 100% on R/A; Weight 58.97 kg; cm10 Height 5 ft. 6 in. ; Pain 0/10; 02/14 04:00 BP 111 / 82; Pulse 79; Resp 17; Pulse Ox 100% on R/A; nw1 10:06 BP 120 / 76; Pulse 80; Resp 16 S; Temp 97.9(O); Pulse Ox 100% on R/A; Pain 0/10; kc6 02/13 21:37 Body Mass Index 20.98 (58.97 kg, 167.64 cm) cm10 02/13 21:37 Pain Scale: Adult cm10 10:06 Pain Scale: Adult kc6 [place] Coma Score: 02/13 22:00 Eye Response: spontaneous(4). Motor Response: obeys commands(6). Verbal Response: nw1 oriented(5). Total: 15. MDM: 21:42 Patient medically screened. sb4 22:01 Differential diagnosis: drug withdrawal. acute psychotic break, depression. sb4 23:00 Data reviewed: vital signs, nurses notes, lab test result(s), EKG, radiologic studies. sb4 Counseling: I had a detailed discussion with the patient and/or guardian regarding the historical points, exam findings, and any diagnostic results supporting the discharge/admit diagnosis, lab results, radiology results, the need to transfer to another facility, for higher level of care, [facility] does not immediately have the required specialist. 23:29 ED course: leena avila at bedside evaluating patient. sb4 23:42 Management of patient was discussed with the following: Behavioral Health Provider: julia avila recommends inpatient treatment. 02/14 07:31 Transition of care: After a detail discussion of the patient's case, care is sp4 transferred to Alden Muse MD. 16:59 ED course: Patient with no ongoing hallucinations, no suicidal thoughts, no indications rt for admission to psychiatric hospital, stable for outpatient care. 02/13 21:58 Order name: Acetaminophen; Complete Time: 22:54 sb4 02/13 21:58 Order name: Basic Metabolic Panel; Complete Time: 22:54 sb4 02/13 21:58 Order name: CBC with Diff; Complete Time: 22:41 sb4 02/13 21:58 Order name: ETOH Level; Complete Time: 22:54 sb4 02/13 21:58 Order name: Hepatic Function; Complete Time: 22:54 sb4 02/13 21:58 Order name: PT-INR; Complete Time: 22:35 sb4 02/13 21:58 Order name: Test, Urine; Complete Time: 23:18 sb4 02/13 21:58 Order name: Ptt, Activated; Complete Time: 22:35 sb4 02/13 21:58 Order name: Salicylate; Complete Time: 23:18 sb4 02/13 21:58 Order name: Urinalysis w/ reflexes; Complete Time: 23:18 sb4 02/13 21:58 Order name: Urine Drug Screen; Complete Time: 23:26 sb4 02/13 21:58 Order name: EKG; Complete Time: 21:59 sb4 02/13 21:58 Order name: EKG - Nurse/Tech; Complete Time: 23:13 sb4 02/13 21:58 Order name: IV Saline Lock; Complete Time: 23:13 sb4 02/13 21:58 Order name: Labs collected and sent; Complete Time: 23:13 sb4 02/13 21:58 Order name: Suicide Screening ([place]); Complete Time: 23:13 sb4 EC/24 22:03 Rate is 86 beats/min. Rhythm is regular, Normal Sinus Rhythm. Right axis deviation sb4 noted. FL interval is normal at 146 msec. QRS interval is normal at 102 msec. QT interval is normal at 352 msec. No Q waves. Clinical impression: NSR w/ Non-specific ST/T Changes. Interpreted by me. Reviewed by me. Administered Medications: No medications were administered Disposition: 02/14 05:34 Co-signature as Attending Physician, Mark Gotti MD I agree with the assessment sp4 and plan of care. I reviewed the patient's care provided by Advanced Practice Provider \T\ agree w/ the diagnosis \T\ care plan. I personally saw the pt \T\ performed a substantive portion of the visit, incldng all aspects of the (History/Exam/Medical Decision Making). Disposition Summary: 02/14/23 15:51 Discharge Ordered Notes: Location: Home rt Problem: new(02/14/23 15:51) rt Symptoms: are resolved(02/14/23 15:51) rt Condition: Stable(02/14/23 15:51) rt Diagnosis - Auditory hallucinations(02/14/23 15:51) rt Followup: rt - With: Private Physician - When: 2 - 3 days - Reason: Discharge Instructions: - Discharge Summary Sheet rt - Amphetamines Use Disorder rt Forms: - Medication Reconciliation Form rt - Thank You Letter rt - Antibiotic Education rt - Prescription Opioid Use rt - Patient Portal Instructions rt - Leadership Thank You Letter rt Signatures: Dispatcher [employer] Erica Serrato PA-C PA-C sb4 Alden Muse MD MD rt Mark Gotti MD MD sp4 Alka Buck, RN RN cm10 Corrections: (The following items were deleted from the chart) 15:51 02/13 23:00 psychiatrist sb4 rt 02/14 15:51 02/13 23:00 Psych Facility sb4 rt 02/14 15:51 02/13 23:00 Higher level of care sb4 rt 02/14 15:51 02/13 23:00 Fair sb4 rt 02/14 15:51 02/13 23:00 new sb4 rt 02/14 15:51 02/13 23:00 are unchanged sb4 rt 02/14 15:51 02/13 23:00 Auditory hallucinations sb4 rt
--- NOTE | 2023-02-13 23:01 | ER ---
Nurse's Notes [facility] Name: Melissa Leavitt Age: 42 yrs Sex: Female : 1980 Arrival Date: 02/13/2023 Time: 21:16 Bed 18 Private MD: Diagnosis: Auditory hallucinations Presentation: 02/13 21:37 Chief complaint: Patient states: She has been having auditory hallucinations. Pt cm10 states, "I keep hearing my family calling out for me and they are out in [place]. I haven't talked to them in a while. I mainly hear them when I am next to machines, cars, or running water." Pt denies any SI/HI, no visual hallucinations. Pt reports using meth, last used 2 days ago. Pt states that she started hearing the voices last night. Coronavirus screen: Vaccine status: Patient reports receiving the 2nd dose of the covid vaccine. Client denies travel out of the [place] in the last 14 days. Ebola Screen: Patient denies travel to an Ebola-affected area in the 21 days before illness onset. No symptoms or risks identified at this time. Initial Sepsis Screen: Does the patient meet any 2 criteria? No. Patient's initial sepsis screen is negative. Does the patient have a suspected source of infection? No. Patient's initial sepsis screen is negative. Risk Assessment: Do you want to hurt yourself or someone else? Patient reports no desire to harm self or others. Onset of symptoms was February 13, 2023. 21:37 Method Of Arrival: Law Enforcement: Mental Health [place] 10 21:37 Acuity: FRIDA 2 cm10 Historical: - Allergies: 21:41 PENICILLINS; cm10 - PMHx: 21:41 anxiety/depression; cm10 - PSHx: 21:41 hysterectomy; cm10 - Immunization history:: Adult Immunizations unknown. - Social history:: Smoking status: Patient reports the use of cigarette tobacco products, denies chronic smoking, but will smoke occasionally, Patient uses street drugs, Methamphetamine (Meth). Screenin:00 [facility] ED Fall Risk Assessment (Adult) History of falling in the last 3 months, nw1 including since admission No falls in past 3 months (0 pts) Confusion or Disorientation Yes (5 pts) Intoxicated or Sedated No (0 pts) Impaired Gait No (0 pts) Mobility Assist Device Used No (0 pt) Altered Elimination No (0 pt) Score/Fall Risk Level 3 or more points = High Risk Oriented to surroundings, Maintained a safe environment, Educated pt \\T\\ family on fall prevention, incl call for assistance when getting out of bed, Assessed \\T\\ reinforced patient's understanding of fall precautions, Hourly rounding (assess needs \\T\\ fall precautionary measures) done, Used ambulatory aids as needed (educated on \\T\\ assisted with). Abuse screen: Denies threats or abuse. Denies injuries from another. Nutritional screening: No deficits noted. Tuberculosis screening: No symptoms or risk factors identified. Assessment: 22:00 Reassessment: Pt denies SI/HI and per HONEY Collazo, no need to have patient on SI/HI nw1 precautions due to pt denying SI/HI. Pt noted alert and oriented but states she hears her family from [place] speaking with her. Pt states that she hears her family through v[place] telling her that they love her. Denies any voices telling her to harm herself. Pt noted compliant and eating pizza and drinking water. Pt notified of POC. Pt states she was seen for the same thing here a couple of weeks ago. Pt states that she took meth a couple of days ago when the voices started. Pain: Denies pain. Neuro: Reports AH denies VH. 23:32 Reassessment: Pt being assessed by pych at this time. nw1 23:46 Reassessment: Pt up to restroom. nw1 02/14 00:00 Reassessment: Pt noted getting up and going to the restroom without assistance from nw1 staff. Pt denies needs/wants at this time. Denies any hallucinations at this time. Call light at bedside. Will continue to monitor. 02:00 Reassessment: Pt noted in bed with both eyes closed. 0 s/s of acute distress noted at nw1 this time. Pt denies needs/wants at this time. Warm blankets given for comfort. Call light at bedside. Will continue to monitor. 04:00 Reassessment: Pt noted in bed. VSS at this time. Call light at bedside. 0 s/s of acute nw1 distress noted at this time. Pt denies hallucinations at this time. Will continue to monitor. 07:00 Reassessment: Patient appears in no apparent distress at this time. Patient and/or kc6 family updated on plan of care and expected duration. Pain level reassessed. Patient is alert, oriented x 3, equal unlabored respirations, skin warm/dry/pink. pt denies having and auditory or visual hallucinations at this time. pt denies SI or HI as well. 07:45 Reassessment: Dr. Muse at bedside speaking with pt. pt does not wish to be kc6 discharged at this time. states she does not feel safe to go home. states she is in a toxic relationship and feels that her hallucinations stem from the environment that she's in. pt informed that acceptance and transfer to an another facility could take several days. pt verbalized understanding. 08:00 Reassessment: Patient appears in no apparent distress at this time. No changes from kc6 previously documented assessment. Patient and/or family updated on plan of care and expected duration. Pain level reassessed. Patient is alert, oriented x 3, equal unlabored respirations, skin warm/dry/pink. 09:00 Reassessment: Patient appears in no apparent distress at this time. No changes from kc6 previously documented assessment. Patient and/or family updated on plan of care and expected duration. Pain level reassessed. Patient is alert, oriented x 3, equal unlabored respirations, skin warm/dry/pink. 10:00 Reassessment: Patient appears in no apparent distress at this time. No changes from kc6 previously documented assessment. Patient and/or family updated on plan of care and expected duration. Pain level reassessed. Patient is alert, oriented x 3, equal unlabored respirations, skin warm/dry/pink. 11:00 Reassessment: Patient appears in no apparent distress at this time. No changes from kc6 previously documented assessment. Patient and/or family updated on plan of care and expected duration. Pain level reassessed. Patient is alert, oriented x 3, equal unlabored respirations, skin warm/dry/pink. 12:00 Reassessment: Patient appears in no apparent distress at this time. No changes from kc6 previously documented assessment. Patient and/or family updated on plan of care and expected duration. Pain level reassessed. Patient is alert, oriented x 3, equal unlabored respirations, skin warm/dry/pink. 13:00 Reassessment: Patient appears in no apparent distress at this time. No changes from kc6 previously documented assessment. Patient and/or family updated on plan of care and expected duration. Pain level reassessed. Patient is alert, oriented x 3, equal unlabored respirations, skin warm/dry/pink. Vital Signs: 02/13 21:37 BP 110 / 87; Pulse 80; Resp 16; Temp 98.2; Pulse Ox 100% on R/A; Weight 58.97 kg; cm10 Height 5 ft. 6 in. ; Pain 0/10; 02/14 04:00 BP 111 / 82; Pulse 79; Resp 17; Pulse Ox 100% on R/A; nw1 10:06 BP 120 / 76; Pulse 80; Resp 16 S; Temp 97.9(O); Pulse Ox 100% on R/A; Pain 0/10; kc6 02/13 21:37 Body Mass Index 20.98 (58.97 kg, 167.64 cm) cm10 02/13 21:37 Pain Scale: Adult cm10 10:06 Pain Scale: Adult kc6 [place] Score: 02/13 22:00 Eye Response: spontaneous(4). Motor Response: obeys commands(6). Verbal Response: nw1 oriented(5). Total: 15. ED Course: 21:17 Patient arrived in ED. jj6 21:18 [facility] sb4 21:18 Mark Gotti MD is Attending Physician. sb4 21:41 Triage completed. cm10 21:41 Arm band placed on Patient placed in an exam room, on a stretcher. cm10 21:45 Shira Melgar RN is Primary Nurse. nw1 22:00 Patient has correct armband on for positive identification. Bed in low position. Call nw1 light in reach. Pt placed in psych clothing. 22:00 No provider procedures requiring assistance completed. Inserted saline lock: 18 gauge nw1 in left forearm, using aseptic technique. Blood collected. 23:16 Called [facility] to have pt screened, spoke with Jaylon. 23:21 [facility] screener is here. 02/14 04:56 Faxed current chart to all Psych Facilities. wm 07:00 Report received from Shira Melgar RN. kc6 07:34 Attending Physician role handed off by Mark Gotti MD rt 07:34 Alden Muse MD is Attending Physician. rt 16:09 IV discontinued, intact, bleeding controlled, No redness/swelling at site. Pressure kc6 dressing applied. Administered Medications: No medications were administered Medication: 02/13 22:00 VIS not applicable for this client. nw1 Outcome: 23:00 ER care complete, transfer ordered by . sb4 02/14 15:51 Discharge ordered by MD. rt 16:08 Discharged to home ambulatory, with friend, ted 16:08 Condition: good 16:08 Discharge instructions given to patient, Instructed on discharge instructions, follow up and referral plans. Demonstrated understanding of instructions, follow-up care, 16:09 Patient left the ED. kc6 Signatures: Bettie Scott Jennifer jj6 Echo Barfield, RN RN kc6 Erica Collazo, PA-C PA-C sb4 Alden Muse MD MD rt Alka Buck RN RN cm10 Shira Melgar RN RN nw1 Corrections: (The following items were deleted from the chart) 07:32 07:00 Reassessment: Patient appears in no apparent distress at this time. Patient kc6 and/or family updated on plan of care and expected duration. Pain level reassessed. Patient is alert, oriented x 3, equal unlabored respirations, skin warm/dry/pink. kc6
[2023-02-13 23:18] LABS: Urine Bacteria None Seen /HPF (<20); Urine Bilirubin NEGATIVE (Negative); Urine Blood Negative (Negative); Urine Clarity Turbid (Clear); Urine Color Yellow (Yellow); Urine Glucose NEGATIVE (Negative); Urine Mucus 3+ /HPF (None Seen); Urine Protein TRACE (Negative); Urine RBC <5 /HPF (None Seen); Urine Urobilinogen Normal (Normal); Urine pH 6.5 (5.0-7.0)
[2023-02-13 23:25] LABS: Barbiturates NEGATIVE (NEGATIVE); Benzodiazepines NEGATIVE (NEGATIVE); Cocaine NEGATIVE (NEGATIVE); METHAMPHETAM POSITIVE (NEGATIVE); Methadone NEGATIVE (NEGATIVE); Opiates NEGATIVE (NEGATIVE); Phencyclidine NEGATIVE (NEGATIVE); THC Cannibis NEGATIVE (NEGATIVE)
[2023-02-14 17:06] VITALS: O2SAT 100
[2023-02-14 17:13] VITALS: BP 120/76; TEMP 97.9
== END ==
LOC: ER 21:16
DX: R44.0 Auditory hallucinations (principal); F17.210 Nicotine dependence, cigarettes, uncomplicated
CPT/HCPCS: 36415; 80048; 80076; 80143; 80179; 80307; 81001; 81025; 82077; 85025; 85610; 85730; 93005; 99284

== ENCOUNTER → 2023-05-08 | Emergency (ER) | payer SELFPAY ==
[~2023-05-08] MED LIST changes: -KETOROLAC 30 MG/ML INJ ONE; -NA CHLORIDE 0.9% 1,000 ML ONE; +NS 0.9% VIAL 0 ML ONE; -ONDANSETRON 4 MG/2 ML VIAL ONE
--- OUTSIDE RECORDS SUMMARY | 2023-05-08 23:58 | XMS REPORT | Continuity of Care Document ---
Author Name Unknown Address [address] [facility] [address] [place] [address] [facility] thconnect Address [address] [facility] [address] [place] [address] Care Team Providers Care [employer] Department Chair Name Role Phone Pcp, Patient Does Not Have A Primary Care Physic srinivasan [email or web address] Attending Clinician UnavailBeth Umana Attending Clinician [phone] BETH REYES Attending Clinician Unavailable Doctor Unassigned, Deweese Attending Clinician U Jarrell Sue MD Attending Clinician [phone] JARRELL BENNETT Attending Clinician Unavailabl HAYDEE Whitney Attending Clinician Unavaila HAYDEE Sanchez Attending Clinician Unavaila avtar RADIOLOGY Attending Clinician Unavailable Radiology Attending Clinician Unavailable Alyssa APPIAH Attending Clinician Unavailable Alyssa Gonzalez Attending Clinician [phone] Sugar Wagner Attending Clinician Unavailable [email or web address] Admitting Clinician Unavaila QUIRINO Johnson JR Admitting Clinician Unavailab Sugar Manriquez Admitting Clinician Unavailable Payers Payer Name Policy Type Policy Number Effective Date Expirati on Date Source Problems Condition Name Condition Details Condition Category Status Onset Date Resolution Date Last Treatment Date Treating Clinician Comments Source No known active problems No known active problems Disease [facility] Allergies, Adverse Reactions, Alerts Allergy Name Allergy Type Status Severity Reaction(s) Onset Date Inactive Date Treating Clinician Comments Source Penicill ins Propensi ty to adverse reaction s Active Unknown - See comments 2020-02 00:00: 00 [facility] Penicill ins Propensi ty to adverse reaction s Active Unknown - See comments 2020-02 00:00: 00 [facility] PENICILL INS Drug Class Active Unknown-Cmnt 2020-02 00:00: 00 [facility] Penicill ins Propensi ty to adverse reaction s Active Unknown - See comments 2020-02 00:00: 00 [facility] Penicill ins DA Active U 'SINCE BABY NOT SURE OF REACTION' 09-15 00:00: 00 [facility] Penicill ins DA Active U 09-15 00:00: 00 [facility] [place] NO KNOWN ALLERGIE S Drug Class Active [facility] Social History Social Habit Start Date [...] Date Source Unknown if ever smoked Unive [facility] Never smoked tobacco [facility] Medications Ordered Medication Name Filled Medication Name Start Date Stop Date Current Medication? Ordering Clinician Indication Dosage Frequency Signature (SIG) Comments Components Source methocarbam oL 500 mg tablet 2021-02 00:00: 00 Yes [facility] traMADoL 50 mg tablet 2021-02 00:00: 00 Yes [facility] methocarbam oL 500 mg tablet 2021-02 00:00: 00 Yes [facility] traMADoL 50 mg tablet 2021-02 00:00: 00 Yes [facility] methocarbam oL 500 mg tablet 2021-02 00:00: 00 Yes [facility] traMADoL 50 mg tablet 2021-02 00:00: 00 Yes [facility] methocarbam oL 500 mg tablet 2021-02 00:00: 00 Yes [facility] traMADoL 50 mg tablet 2021-02 00:00: 00 Yes [facility] methocarbam oL 500 mg tablet 2021-02 00:00: 00 Yes [facility] traMADoL 50 mg tablet 2021-02 00:00: 00 Yes [facility] methocarbam oL 500 mg tablet 2021-02 00:00: 00 Yes [facility] traMADoL 50 mg tablet 2021-02 00:00: 00 Yes [facility] methocarbam oL 500 mg tablet 2021-02 00:00: 00 Yes [facility] traMADoL 50 mg tablet 2021-02 00:00: 00 Yes [facility] methocarbam oL 500 mg tablet 2021-02 00:00: 00 Yes [facility] traMADoL 50 mg tablet 2021-02 00:00: 00 Yes [facility] methocarbam oL 500 mg tablet 2021-02 00:00: 00 Yes [facility] traMADoL 50 mg tablet 2021-02 00:00: 00 Yes [facility] methocarbam oL 500 mg tablet 2021-02 00:00: 00 Yes [facility] traMADoL 50 mg tablet 2021-02 00:00: 00 Yes [facility] methocarbam oL 500 mg tablet 2021-02 00:00: 00 Yes [facility] traMADoL 50 mg tablet 2021-02 00:00: 00 Yes [facility] methocarbam oL 500 mg tablet 2021-02 00:00: 00 Yes [facility] traMADoL 50 mg tablet 2021-02 00:00: 00 Yes [facility] methocarbam oL 500 mg tablet 2021-02 00:00: 00 Yes [facility] traMADoL 50 mg tablet 2021-02 00:00: 00 Yes [facility] methocarbam oL 500 mg tablet 2021-02 00:00: 00 Yes [facility] traMADoL 50 mg tablet 2021-02 00:00: 00 Yes [facility] methocarbam oL 500 mg tablet 2021-02 00:00: 00 Yes [facility] traMADoL 50 mg tablet 2021-02 00:00: 00 Yes [facility] methocarbam oL 500 mg tablet 2021-02 00:00: 00 Yes [facility] traMADoL 50 mg tablet 2021-02 00:00: 00 Yes [facility] methocarbam oL 500 mg tablet 2021-02 00:00: 00 Yes [facility] traMADoL 50 mg tablet 2021-02 00:00: 00 Yes [facility] methocarbam oL 500 mg tablet 2021-02 00:00: 00 Yes [facility] traMADoL 50 mg tablet 2021-02 00:00: 00 Yes [facility] methocarbam oL 500 mg tablet 2021-02 00:00: 00 Yes [facility] traMADoL 50 mg tablet 2021-02 00:00: 00 Yes [facility] methocarbam oL 500 mg tablet 2021-02 00:00: 00 Yes [facility] traMADoL 50 mg tablet 2021-02 00:00: 00 Yes [facility] methocarbam oL 500 mg tablet 2021-02 00:00: 00 Yes [facility] traMADoL 50 mg tablet 2021-02 00:00: 00 Yes [facility] methocarbam oL 500 mg tablet 2021-02 00:00: 00 Yes [facility] traMADoL 50 mg tablet 2021-02 00:00: 00 Yes [facility] clonazePAM 1 mg tablet 2021-02 00:00: 00 Yes [facility] clonazePAM 1 mg tablet 2021-02 00:00: 00 Yes [facility] clonazePAM 1 mg tablet 2021-02 00:00: 00 Yes [facility] clonazePAM 1 mg tablet 2021-02 00:00: 00 Yes [facility] clonazePAM 1 mg tablet 2021-02 00:00: 00 Yes [facility] clonazePAM 1 mg tablet 2021-02 00:00: 00 Yes [facility] clonazePAM 1 mg tablet 2021-02 00:00: 00 Yes [facility] clonazePAM 1 mg tablet 2021-02 00:00: 00 Yes [facility] clonazePAM 1 mg tablet 2021-02 00:00: 00 Yes [facility] clonazePAM 1 mg tablet 2021-02 00:00: 00 Yes [facility] clonazePAM 1 mg tablet 2021-02 00:00: 00 Yes [facility] clonazePAM 1 mg tablet 2021-02 00:00: 00 Yes [facility] clonazePAM 1 mg tablet 2021-02 00:00: 00 Yes [facility] clonazePAM 1 mg tablet 2021-02 00:00: 00 Yes [facility] clonazePAM 1 mg tablet 2021-02 00:00: 00 Yes [facility] clonazePAM 1 mg tablet 2021-02 00:00: 00 Yes [facility] clonazePAM 1 mg tablet 2021-02 00:00: 00 Yes [facility] clonazePAM 1 mg tablet 2021-02 00:00: 00 Yes [facility] clonazePAM 1 mg tablet 2021-02 00:00: 00 Yes [facility] clonazePAM 1 mg tablet 2021-02 00:00: 00 Yes [facility] clonazePAM 1 mg tablet 2021-02 00:00: 00 Yes [facility] clonazePAM 1 mg tablet 2021-02 00:00: 00 Yes [facility] buprenorphi ne-naloxone 8-2 mg sublingual film 2021-02 00:00: 00 Yes DISSOLVE 1/2 FILM UNDER THE TONGUE EVERY DAY [facility] buprenorphi ne-naloxone 8-2 mg sublingual film 2021-02 00:00: 00 Yes DISSOLVE 1/2 FILM UNDER THE TONGUE EVERY DAY [facility] buprenorphi ne-naloxone 8-2 mg sublingual film 2021-02 00:00: 00 Yes DISSOLVE 1/2 FILM UNDER THE TONGUE EVERY DAY [facility] buprenorphi ne-naloxone 8-2 mg sublingual film 2021-02 00:00: 00 Yes DISSOLVE 1/2 FILM UNDER THE TONGUE EVERY DAY [facility] buprenorphi ne-naloxone 8-2 mg sublingual film 2021-02 00:00: 00 Yes DISSOLVE 1/2 FILM UNDER THE TONGUE EVERY DAY [facility] buprenorphi ne-naloxone 8-2 mg sublingual film 2021-02 00:00: 00 Yes DISSOLVE 1/2 FILM UNDER THE TONGUE EVERY DAY [facility] buprenorphi ne-naloxone 8-2 mg sublingual film 2021-02 00:00: 00 Yes DISSOLVE 1/2 FILM UNDER THE TONGUE EVERY DAY [facility] buprenorphi ne-naloxone 8-2 mg sublingual film 2021-02 00:00: 00 Yes DISSOLVE 1/2 FILM UNDER THE TONGUE EVERY DAY [facility]nal[facility]-2 mg sublingual film 2021-02 00:00: 00 Yes DISSOLVE 1/2 FILM UNDER THE TONGUE EVERY DAY [facility] buprenorphi ne-naloxone 8-2 mg sublingual film 2021-02 00:00: 00 Yes DISSOLVE 1/2 FILM UNDER THE TONGUE EVERY DAY [facility] buprenorphi ne-naloxone 8-2 mg sublingual film 2021-02 00:00: 00 Yes DISSOLVE 1/2 FILM UNDER THE TONGUE EVERY DAY [facility] ne-naloxone 8-2 mg sublingual film 2021-02 00:00: 00 Yes DISSOLVE 1/2 FILM UNDER THE TONGUE EVERY DAY [facility] ne-naloxone 8-2 mg sublingual film 2021-02 00:00: 00 Yes DISSOLVE 1/2 FILM UNDER THE TONGUE EVERY DAY [facility] ne-naloxone 8-2 mg sublingual film 2021-02 00:00: 00 Yes DISSOLVE 1/2 FILM UNDER THE TONGUE EVERY DAY [facility] buprenorphi ne-naloxone 8-2 mg sublingual film 2021-02 00:00: 00 Yes DISSOLVE 1/2 FILM UNDER THE TONGUE EVERY DAY Univers [facility] buprenorphi ne-naloxone 8-2 mg sublingual film 2021-02 00:00: 00 Yes DISSOLVE 1/2 FILM UNDER THE TONGUE EVERY DAY Univers [facility] buprenorphi ne-naloxone 8-2 mg sublingual film 2021-02 00:00: 00 Yes DISSOLVE 1/2 FILM UNDER THE TONGUE EVERY DAY [facility] ne-naloxone 8-2 mg sublingual film 2021-02 00:00: 00 Yes DISSOLVE 1/2 FILM UNDER THE TONGUE EVERY DAY [facility] ne-naloxone 8-2 mg sublingual film 2021-02 00:00: 00 Yes DISSOLVE 1/2 FILM UNDER THE TONGUE EVERY DAY Univers [facility] buprenorphi ne-naloxone 8-2 mg sublingual film 2021-02 00:00: 00 Yes DISSOLVE 1/2 FILM UNDER THE TONGUE EVERY DAY [facility] buprenorphi ne-naloxone 8-2 mg sublingual film 2021-02 00:00: 00 Yes DISSOLVE 1/2 FILM UNDER THE TONGUE EVERY DAY [facility] buprenorphi ne-naloxone 8-2 mg sublingual film 2021-02 00:00: 00 Yes DISSOLVE 1/2 FILM UNDER THE TONGUE EVERY DAY [facility] gabapentin 300 mg capsule 2021-02 00:00: 00 Yes TAKE ONE (1) CAPSULE(S) BY MOUTH FOUR TIMES A DAY NEEDED FOR WITHDRAWAL SYMPTOMS. [facility] gabapentin 300 mg capsule 2021-02 00:00: 00 Yes TAKE ONE (1) CAPSULE(S) BY MOUTH FOUR TIMES A DAY NEEDED FOR WITHDRAWAL SYMPTOMS. [facility] gabapentin 300 mg capsule 2021-02 00:00: 00 Yes TAKE ONE (1) CAPSULE(S) BY MOUTH FOUR TIMES A DAY NEEDED FOR WITHDRAWAL SYMPTOMS. [facility] gabapentin 300 mg capsule 2021-02 00:00: 00 Yes TAKE ONE (1) CAPSULE(S) BY MOUTH FOUR TIMES A DAY NEEDED FOR WITHDRAWAL SYMPTOMS. [facility] gabapentin 300 mg capsule 2021-02 00:00: 00 Yes TAKE ONE (1) CAPSULE(S) BY MOUTH FOUR TIMES A DAY NEEDED FOR WITHDRAWAL SYMPTOMS. [facility] gabapentin 300 mg capsule 2021-02 00:00: 00 Yes TAKE ONE (1) CAPSULE(S) BY MOUTH FOUR TIMES A DAY NEEDED FOR WITHDRAWAL SYMPTOMS. [facility] gabapentin 300 mg capsule 2021-02 00:00: 00 Yes TAKE ONE (1) CAPSULE(S) BY MOUTH FOUR TIMES A DAY NEEDED FOR WITHDRAWAL SYMPTOMS. [facility] gabapentin 300 mg capsule 2021-02 00:00: 00 Yes TAKE ONE (1) CAPSULE(S) BY MOUTH FOUR TIMES A DAY NEEDED FOR WITHDRAWAL SYMPTOMS. [facility] gabapentin 300 mg capsule 2021-02 00:00: 00 Yes TAKE ONE (1) CAPSULE(S) BY MOUTH FOUR TIMES A DAY NEEDED FOR WITHDRAWAL SYMPTOMS. [facility] gabapentin 300 mg capsule 2021-02 00:00: 00 Yes TAKE ONE (1) CAPSULE(S) BY MOUTH FOUR TIMES A DAY NEEDED FOR WITHDRAWAL SYMPTOMS. [facility] gabapentin 300 mg capsule 2021-02 00:00: 00 Yes TAKE ONE (1) CAPSULE(S) BY MOUTH FOUR TIMES A DAY NEEDED FOR WITHDRAWAL SYMPTOMS. [facility] gabapentin 300 mg capsule 2021-02 00:00: 00 Yes TAKE ONE (1) CAPSULE(S) BY MOUTH FOUR TIMES A DAY NEEDED FOR WITHDRAWAL SYMPTOMS. [facility] gabapentin 300 mg capsule 2021-02 00:00: 00 Yes TAKE ONE (1) CAPSULE(S) BY MOUTH FOUR TIMES A DAY NEEDED FOR WITHDRAWAL SYMPTOMS. [facility] gabapentin 300 mg capsule 2021-02 00:00: 00 Yes TAKE ONE (1) CAPSULE(S) BY MOUTH FOUR TIMES A DAY NEEDED FOR WITHDRAWAL SYMPTOMS. [facility] gabapentin 300 mg capsule 2021-03-01 00:00: 00 Yes TAKE ONE (1) CAPSULE(S) BY MOUTH FOUR TIMES A DAY NEEDED FOR WITHDRAWAL SYMPTOMS. [facility] gabapentin 300 mg capsule 2021-02 00:00: 00 Yes TAKE ONE (1) CAPSULE(S) BY MOUTH FOUR TIMES A DAY NEEDED FOR WITHDRAWAL SYMPTOMS. [facility] gabapentin 300 mg capsule 2021-02 00:00: 00 Yes TAKE ONE (1) CAPSULE(S) BY MOUTH FOUR TIMES A DAY NEEDED FOR WITHDRAWAL SYMPTOMS. [facility] gabapentin 300 mg capsule 2021-1 03-01 00:00: 00 Yes TAKE ONE (1) CAPSULE(S) BY MOUTH FOUR TIMES A DAY NEEDED FOR WITHDRAWAL SYMPTOMS. [facility] gabapentin 300 mg capsule 2021-03-01 00:00: 00 Yes TAKE ONE (1) CAPSULE(S) BY MOUTH FOUR TIMES A DAY NEEDED FOR WITHDRAWAL SYMPTOMS. [facility] gabapentin 300 mg capsule 2021-03-01 00:00: 00 Yes TAKE ONE (1) CAPSULE(S) BY MOUTH FOUR TIMES A DAY NEEDED FOR WITHDRAWAL SYMPTOMS. [facility] gabapentin 300 mg capsule 2021-02- 00:00: 00 Yes TAKE ONE (1) CAPSULE(S) BY MOUTH FOUR TIMES A DAY NEEDED FOR WITHDRAWAL SYMPTOMS. [facility] gabapentin 300 mg capsule 2021-02 00:00: 00 Yes TAKE ONE (1) CAPSULE(S) BY MOUTH FOUR TIMES A DAY NEEDED FOR WITHDRAWAL SYMPTOMS. [facility] DULoxetine 60 mg capsule 2021-02 0 00:00: 00 Yes 60mg Take 60 mg by mouth in the morning. [facility] ALPRAZolam 0.5 mg tablet 2021-02 0- 00:00: 00 Yes TAKE ONE (1) TABLET(S) BY MOUTH DAILY NEEDED. [facility] DULoxetine 60 mg capsule 2021-02 0 00:00: 00 Yes 60mg Take 60 mg by mouth in the morning. [facility] ALPRAZolam 0.5 mg tablet 2021-02 0- 00:00: 00 Yes TAKE ONE (1) TABLET(S) BY MOUTH DAILY NEEDED. [facility] DULoxetine 60 mg capsule 2021-02 0 00:00: 00 Yes 60mg Take 60 mg by mouth in the morning. [facility] ALPRAZolam 0.5 mg tablet 2021-02 0- 00:00: 00 Yes TAKE ONE (1) TABLET(S) BY MOUTH DAILY NEEDED. [facility] DULoxetine 60 mg capsule 2021-02 0- 00:00: 00 Yes 60mg Take 60 mg by mouth in the morning. [facility] ALPRAZolam 0.5 mg tablet 2021-02 0- 00:00: 00 Yes TAKE ONE (1) TABLET(S) BY MOUTH DAILY NEEDED. [facility] DULoxetine 60 mg capsule 2021-02 0-20 00:00: 00 Yes 60mg Take 60 mg by mouth in the morning. [facility] ALPRAZolam 0.5 mg tablet 2021-02 0-20 00:00: 00 Yes TAKE ONE (1) TABLET(S) BY MOUTH DAILY NEEDED. [facility] DULoxetine 60 mg capsule 2021-02 0-20 00:00: 00 Yes 60mg Take 60 mg by mouth in the morning. [facility] ALPRAZolam 0.5 mg tablet 2021-02 0-20 00:00: 00 Yes TAKE ONE (1) TABLET(S) BY MOUTH DAILY NEEDED. [facility] DULoxetine 60 mg capsule 2021-02 0-20 00:00: 00 Yes 60mg Take 60 mg by mouth in the morning. [facility] ALPRAZolam 0.5 mg tablet 2021-02 0-20 00:00: 00 Yes TAKE ONE (1) TABLET(S) BY MOUTH DAILY NEEDED. [facility] DULoxetine 60 mg capsule 2021-02 0-20 00:00: 00 Yes 60mg Take 60 mg by mouth in the morning. [facility] ALPRAZolam 0.5 mg tablet 2021-02 0-20 00:00: 00 Yes TAKE ONE (1) TABLET(S) BY MOUTH DAILY NEEDED. [facility] DULoxetine 60 mg capsule 2021-02 0-20 00:00: 00 Yes 60mg Take 60 mg by mouth in the morning. [facility] ALPRAZolam 0.5 mg tablet 2021-02 0-20 00:00: 00 Yes TAKE ONE (1) TABLET(S) BY MOUTH DAILY NEEDED. [facility] DULoxetine 60 mg capsule 2021-02 0-20 00:00: 00 Yes 60mg Take 60 mg by mouth in the morning. [facility] ALPRAZolam 0.5 mg tablet 2021-02 0-20 00:00: 00 Yes TAKE ONE (1) TABLET(S) BY MOUTH DAILY NEEDED. [facility] DULoxetine 60 mg capsule 2021-02 0-20 00:00: 00 Yes 60mg Take 60 mg by mouth in the morning. [facility] ALPRAZolam 0.5 mg tablet 2021-02 0-20 00:00: 00 Yes TAKE ONE (1) TABLET(S) BY MOUTH DAILY NEEDED. [facility] DULoxetine 60 mg capsule 2021-02 0-20 00:00: 00 Yes 60mg Take 60 mg by mouth in the morning. [facility] ALPRAZolam 0.5 mg tablet 2021-02 0-20 00:00: 00 Yes TAKE ONE (1) TABLET(S) BY MOUTH DAILY NEEDED. [facility] DULoxetine 60 mg capsule 2021-02 0-20 00:00: 00 Yes 60mg Take 60 mg by mouth in the morning. [facility] ALPRAZolam 0.5 mg tablet 2021-02 0-20 00:00: 00 Yes TAKE ONE (1) TABLET(S) BY MOUTH DAILY NEEDED. [facility] DULoxetine 60 mg capsule 2021-02 0-20 00:00: 00 Yes 60mg Take 60 mg by mouth in the morning. [facility] ALPRAZolam 0.5 mg tablet 2021-02 0-20 00:00: 00 Yes TAKE ONE (1) TABLET(S) BY MOUTH DAILY NEEDED. [facility] DULoxetine 60 mg capsule 2021-02 0-20 00:00: 00 Yes 60mg Take 60 mg by mouth in the morning. [facility] ALPRAZolam 0.5 mg tablet 2021-02 0-20 00:00: 00 Yes TAKE ONE (1) TABLET(S) BY MOUTH DAILY NEEDED. [facility] DULoxetine 60 mg capsule 2021-02 0-20 00:00: 00 Yes 60mg Take 60 mg by mouth in the morning. [facility] ALPRAZolam 0.5 mg tablet 2021-02 0-20 00:00: 00 Yes TAKE ONE (1) TABLET(S) BY MOUTH DAILY NEEDED. [facility] DULoxetine 60 mg capsule 2021-02 0-20 00:00: 00 Yes 60mg Take 60 mg by mouth in the morning. [facility] ALPRAZolam 0.5 mg tablet 2021-02 0-20 00:00: 00 Yes TAKE ONE (1) TABLET(S) BY MOUTH DAILY NEEDED. [facility] DULoxetine 60 mg capsule 2021-02 0-20 00:00: 00 Yes 60mg Take 60 mg by mouth in the morning. [facility] ALPRAZolam 0.5 mg tablet 2021-02 0-20 00:00: 00 Yes TAKE ONE (1) TABLET(S) BY MOUTH DAILY NEEDED. [facility] DULoxetine 60 mg capsule 2021-02 0-20 00:00: 00 Yes 60mg Take 60 mg by mouth in the morning. [facility] ALPRAZolam 0.5 mg tablet 2021-02 0-20 00:00: 00 Yes TAKE ONE (1) TABLET(S) BY MOUTH DAILY NEEDED. [facility] DULoxetine 60 mg capsule 2021-02 0-20 00:00: 00 Yes 60mg Take 60 mg by mouth in the morning. [facility] ALPRAZolam 0.5 mg tablet 2021-02 0-20 00:00: 00 Yes TAKE ONE (1) TABLET(S) BY MOUTH DAILY NEEDED. [facility] DULoxetine 60 mg capsule 2021-02 0-20 00:00: 00 Yes 60mg Take 60 mg by mouth in the morning. [facility] ALPRAZolam 0.5 mg tablet 2021-02 0-20 00:00: 00 Yes TAKE ONE (1) TABLET(S) BY MOUTH DAILY NEEDED. [facility] DULoxetine 60 mg capsule 2021-02 0-20 00:00: 00 Yes 60mg Take 60 mg by mouth in the morning. [facility] ALPRAZolam 0.5 mg tablet 2021-02 0-20 00:00: 00 Yes TAKE ONE (1) TABLET(S) BY MOUTH DAILY NEEDED. [facility] REXULTI 1 mg Tab 2021-02 0-19 00:00: 00 Yes 1{tbl} Take 1 tablet by mouth daily. [facility] REXULTI 1 mg Tab 2021- 0-19 00:00: 00 Yes 1{tbl} Take 1 tablet by mouth daily. [facility] REXULTI 1 mg Tab 2021-1 0-19 00:00: 00 Yes 1{tbl} Take 1 tablet by mouth daily. [facility] REXULTI 1 mg Tab 2022-1 0-19 00:00: 00 Yes 1{tbl} Take 1 tablet by mouth daily. [facility] REXULTI 1 mg Tab 2-1 0-19 00:00: 00 Yes 1{tbl} Take 1 tablet by mouth daily. [facility] REXULTI 1 mg Tab 2022-1 0-19 00:00: 00 Yes 1{tbl} Take 1 tablet by mouth daily. [facility] REXULTI 1 mg Tab 2022-1 0-19 00:00: 00 Yes 1{tbl} Take 1 tablet by mouth daily. [facility] REXULTI 1 mg Tab 2022-1 0-19 00:00: 00 Yes 1{tbl} Take 1 tablet by mouth daily. [facility] REXULTI 1 mg Tab 2022-1 0-19 00:00: 00 Yes 1{tbl} Take 1 tablet by mouth daily. [facility] REXULTI 1 mg Tab 2-1 0-19 00:00: 00 Yes 1{tbl} Take 1 tablet by mouth daily. [facility] REXULTI 1 mg Tab 2-1 0-19 00:00: 00 Yes 1{tbl} Take 1 tablet by mouth daily. [facility] REXULTI 1 mg Tab 2-1 0-19 00:00: 00 Yes 1{tbl} Take 1 tablet by mouth daily. [facility] REXULTI 1 mg Tab 2-1 0-19 00:00: 00 Yes 1{tbl} Take 1 tablet by mouth daily. [facility] REXULTI 1 mg Tab 2022-1 0-19 00:00: 00 Yes 1{tbl} Take 1 tablet by mouth daily. [facility] REXULTI 1 mg Tab 2-1 0-19 00:00: 00 Yes 1{tbl} Take 1 tablet by mouth daily. [facility] REXULTI 1 mg Tab 2022-1 0-19 00:00: 00 Yes 1{tbl} Take 1 tablet by mouth daily. [facility] REXULTI 1 mg Tab 2022-1 0-19 00:00: 00 Yes 1{tbl} Take 1 tablet by mouth daily. [facility] REXULTI 1 mg Tab 2021-1 0-19 00:00: 00 Yes 1{tbl} Take 1 tablet by mouth daily. [facility] REXULTI 1 mg Tab 2021-1 0-19 00:00: 00 Yes 1{tbl} Take 1 tablet by mouth daily. [facility] REXULTI 1 mg Tab 2021-1 0-19 00:00: 00 Yes 1{tbl} Take 1 tablet by mouth daily. [facility] REXULTI 1 mg Tab 2021-1 0-19 00:00: 00 Yes 1{tbl} Take 1 tablet by mouth daily. [facility] REXULTI 1 mg Tab 2021-1 019 00:00: 00 Yes 1{tbl} Take 1 tablet by mouth daily. [facility] melatonin 3 mg tablet 2021-1 0-13 00:00: 00 Yes [facility] melatonin 3 mg tablet 2021-1 0-13 00:00: 00 Yes [facility] melatonin 3 mg tablet 2021-1 0-13 00:00: 00 Yes [facility] melatonin 3 mg tablet 2021-1 0-13 00:00: 00 Yes [facility] melatonin 3 mg tablet 2021-1 0-13 00:00: 00 Yes [facility] melatonin 3 mg tablet 2021-1 0-13 00:00: 00 Yes [facility] melatonin 3 mg tablet 2021-1 0-13 00:00: 00 Yes [facility] melatonin 3 mg tablet 2021-1 0-13 00:00: 00 Yes [facility] melatonin 3 mg tablet 2021-1 0-13 00:00: 00 Yes [facility] melatonin 3 mg tablet 2021-1 0-13 00:00: 00 Yes [facility] melatonin 3 mg tablet 2021-1 0-13 00:00: 00 Yes [facility] melatonin 3 mg tablet 2021-1 0-13 00:00: 00 Yes [facility] melatonin 3 mg tablet 2021-1 0-13 00:00: 00 Yes [facility] melatonin 3 mg tablet 2021-1 0-13 00:00: 00 Yes [facility] melatonin 3 mg tablet 2021-1 0-13 00:00: 00 Yes [facility] melatonin 3 mg tablet 2021-1 0-13 00:00: 00 Yes [facility] melatonin 3 mg tablet 2021-1 0-13 00:00: 00 Yes [facility] melatonin 3 mg tablet 2021-1 0-13 00:00: 00 Yes [facility] melatonin 3 mg tablet 2021-1 0-13 00:00: 00 Yes [facility] melatonin 3 mg tablet 2021-1 0-13 00:00: 00 Yes [facility] melatonin 3 mg tablet 2021-1 0-13 00:00: 00 Yes [facility] melatonin 3 mg tablet 2021-1 0-13 00:00: 00 Yes [facility] traZODone 50 mg tablet 2021-1 0-09 00:00: 00 Yes [facility] traZODone 50 mg tablet 2021-1 0-09 00:00: 00 Yes [facility] traZODone 50 mg tablet 2021-1 0-09 00:00: 00 Yes [facility] traZODone 50 mg tablet 2021-1 0-09 00:00: 00 Yes [facility] traZODone 50 mg tablet 2021-1 0-09 00:00: 00 Yes [facility] traZODone 50 mg tablet 2021-1 0-09 00:00: 00 Yes [facility] traZODone 50 mg tablet 2021-1 0-09 00:00: 00 Yes [facility] traZODone 50 mg tablet 2021-1 0-09 00:00: 00 Yes [facility] traZODone 50 mg tablet 2-1 0-09 00:00: 00 Yes [facility] traZODone 50 mg tablet 2021-1 0-09 00:00: 00 Yes [facility] traZODone 50 mg tablet 2-1 0-09 00:00: 00 Yes [facility] traZODone 50 mg tablet 2021-1 0-09 00:00: 00 Yes [facility] traZODone 50 mg tablet 2021-1 0-09 00:00: 00 Yes [facility] traZODone 50 mg tablet 2021-1 0-09 00:00: 00 Yes [facility] traZODone 50 mg tablet 2-1 0-09 00:00: 00 Yes [facility] traZODone 50 mg tablet 2021-1 0-09 00:00: 00 Yes [facility] traZODone 50 mg tablet 2021-1 0-09 00:00: 00 Yes [facility] traZODone 50 mg tablet 2-1 0-09 00:00: 00 Yes [facility] traZODone 50 mg tablet 2021-1 0-09 00:00: 00 Yes [facility] traZODone 50 mg tablet 2-1 0-09 00:00: 00 Yes [facility] traZODone 50 mg tablet 2021-1 0-09 00:00: 00 Yes [facility] traZODone 50 mg tablet 2021-1 0-09 00:00: 00 Yes [facility] Vital Signs Vital Name Observation Time Observation Value Comments S ource Body height 2022-02-24 19:11:00 167.6 cm [facility] Body weight 2022-02-24 19:11:00 73.483 kg [facility] BMI 2022-02-24 19:11:00 26.15 kg/m2 [facility] Body height 2022-02-10 19:00:00 167.6 cm [facility] Body weight 2022-02-10 19:00:00 73.483 kg [facility] BMI 2022-02-10 19:00:00 26.15 kg/m2 [facility] Body height 2022-01-19 19:06:00 167.6 cm [facility] Body weight 2022-01-19 19:06:00 73.483 kg [facility] BMI 2022-01-19 19:06:00 26.15 kg/m2 [facility] Systolic blood pressure 2021-02-04 22:48:00 123 mm[Hg] [facility] Diastolic blood pressure 2021-02-04 22:48:00 86 mm[Hg] [facility] Heart rate 2021-02-04 22:48:00 86 /min [facility] Body temperature 2021-02-04 22:48:00 37.22 Fernanda [facility] Respiratory rate 2021-02-04 22:48:00 18 /min [facility] Body weight 2021-02-04 22:48:00 79.379 kg [facility] Oxygen saturation in Arterial blood by Pulse oximetry 2021-02-04 22:48:00 100 /min [facility] Procedures Procedure Date / Time Performed Performing Clinician Source OP CORRESPONDENCE 2022-03-22 06:01:00 Doctor Alix ssigned, Deweese [facility] EXTERNAL PROVIDER RECORDS 2022-02-02 06:01:00 Do ctor Unassigned, Deweese [facility] BI SCREENING TOMOSYNTHESIS BILATERAL 2021-08-13 20:52:45 Requisition, Paper [facility] ASSIGNMENT OF BENEFITS 2021-08-13 20:18:45 Docto r Unassigned, [facility]ese [facility] CONSENT/REFUSAL FOR DIAGNOSIS AND TREATMENT 2021-02-04 22:43:49 Doctor Unassigned, [facility]ese [facility] NOTICE OF PRIVACY PRACTICES 2021-02-04 22:43:35 Doctor Unassigned, [facility] Encounters Start Date/Time End Date/Time Encounter Type Admission Type Attending Clinicians Care Facility Care Department Encounter ID Source 2022-12-17 00:00:00 2022-12-17 00:00:00 Outpatient [id number] [id number] [facility] [id number] [facility] 2022-04-23 00:00:00 2022-04-23 00:00:00 [facility]phone [facility] 1..840.114 350.1.13.10 4.2.7.2.686 [id number] [facility] 2022-04-22 16:15:00 2022-04-22 16:15:00 Outpatient R REYES B[facility] [id number] [facility] 2022-03-29 13:30:00 2022-03-29 13:30:00 Outpatient Deepak REYES [facility] [id number] [facility] 2022-03-22 00:00:00 2022-03-22 00:00:00 Orders Only Doctor Unassigned, Deweese [facility] 1.840.114 350.1.13.10 4.2.7.2.686 [id number] [facility] 2022-02-25 00:00:00 2022-02-25 00:00:00 Telephone BennettHoangarnulfo Fajardo [facility] [place]?[facility] 1..840.114 350.1.13.10 4.2.7.2.686 [id number] [facility] 2022-02-24 13:15:00 2022-02-24 23:59:00 Outpatient R AMY [facility] [id number] [facility] 2022-02-24 13:00:00 2022-02-24 13:15:00 Office Visit [facility]eth [facility] 1..840.114 350.1.13.10 4.2.7.2.686 [id number] [facility] 2022-02-24 00:00:00 2022-02-24 00:00:00 Telephone BennettHoangarnulfo Fajardo [facility] [place]?[facility] 1.840.114 350.1.13.10 4.2.7.2.686 [id number] [facility] 2022-02-22 14:15:00 2022-02-22 14:15:00 Outpatient BETH RODRIGEZ [facility] [id number] [facility] 2022-02-19 10:15:00 2022-02-19 10:15:00 Outpatient R REYESBETH [facility] [id number] [facility] 2022-02-19 09:45:00 2022-02-19 09:45:00 Outpatient Deepak REYES [facility] [id number] [facility] 2022-02-19 00:00:00 2022-02-19 00:00:00 Telephone [facility] 1.2.840.114 350.1.13.10 4.2.7.2.686 [id number] [facility] 2022-02-12 00:00:00 2022-02-12 00:00:00 Telephone Amy [facility] 1.2.840.114 350.1.13.10 4.2.7.2.686 [id number] [facility] 2022-02-10 13:00:00 2022-02-10 13:46:47 Outpatient R BETH REYES [facility] [id number] [facility] 2022-02-10 13:00:00 2022-02-10 13:15:00 Office Visit [facility] 1.2.840.114 350.1.13.10 4.2.7.2.686 [id number] [facility] 2022-02-08 14:45:00 2022-02-08 14:45:00 Outpatient R AMY [facility] [id number] [facility] 2022-02-02 00:00:00 2022-02-02 00:00:00 Orders Only Doctor Unassigned, Deweese [facility] 1.2.840.114 350.1.13.10 4.2.7.2.686 [id number] [facility] 2022-01-28 10:15:00 2022-01-28 10:15:00 Outpatient R BETH REYES [facility] [id number] [facility] 2022-01-25 00:00:00 2022-01-25 00:00:00 [facility] 1.2.840.114 350.1.13.10 4.2.7.2.686 [id number] [facility] 2022-01-25 00:00:00 2022-01-25 00:00:00 [facility] 1.2.840.114 350.1.13.10 4.2.7.2.686 [id number] [facility] 2022-01-22 00:00:00 2022-01-22 00:00:00 Telephone BennettJarrell ferrer [facility] [place]?[facility] 1.2.840.114 350.1.13.10 4.2.7.2.686 [id number] [facility] 2022-01-20 00:00:00 2022-01-20 00:00:00 Telephone Amy [facility] [place]?[facility] 1.2.840.114 350.1.13.10 4.2.7.2.686 [id number] [facility] 2022-01-19 14:00:00 2022-01-19 14:04:00 Outpatient R JARRELL BENNETT [facility] [id number] [facility] 2022-01-19 13:00:00 2022-01-19 13:30:00 Office Visit [facility] 1.84.114 350.1.13.10 4.2.7.2.686 [id number] [facility] 2021-11-16 15:15:00 2021-11-16 15:15:00 Outpatient R TRIHAYDEE MANZANO CHERYAL [facility] [id number] [facility] 2021-11-16 08:00:00 2021-11-16 08:00:00 Outpatient R HAYDEE PINTO CHERYAL [facility] [id number] [facility] 2021-08-13 15:25:11 2021-08-13 23:59:00 Outpatient R RADIOLOGY [facility] [id number] [facility] 2021-08-13 15:00:00 2021-08-13 23:59:00 Hospital Encounter Radiology [facility] 1..114 350.1.13.10 4.2.7.2.686 [id number] [facility] 2021-08-13 00:00:00 2021-08-13 00:00:00 Orders Only Doctor Unassigned, Deweese [facility] 1..114 350.1.13.10 4.2.7.2.686 [id number] [facility] 2021-02-04 16:50:00 2021-02-04 18:22:00 Emergency X Alyssa [facility] ERT [id number] [facility] 2021-02-04 16:50:00 2021-02-04 18:22:00 Emergency Alyssa Appiahge [facility] 1.84.114 350.1.13.10 4.2.7.2.686 [id number] [facility] 2020-09-16 16:27:00 2020-09-17 10:25:00 Inpatient Sugar Lester [facility].01 [id number] [facility] Results Test Description Test Time Test Comments Results Result Co mments Source HGB [id number] 04:36:00* Test Item Value Reference Range Interpretation Comme nts HEMOGLOBIN (test code = HGB) 12.5 g/dL 10.1-13.8 N HEMATOCRIT (test code = HCT) 37.3 % 32.5-41.8 N HCG SERUM [id number] 11:17:00* Test Item Value Reference Range Interpretation Comme nts HCG SERUM QUAL (test code = HCGQL) NEGATIVE PROTHROMBIN [id number] 11:11:00* Test Item Value Reference Range Interpretation Comme nts PROTHROMBIN TIME PATIENT (te st code = PTP) 10.5 secs 10.1-12.3 N THROMBOPLASTIN TIME [id number] 11:11:00* Test Item Value Reference Range Interpretation Comme nts THROMBOPLASTIN TIME PARTIAL (test code = PTT) 29.7 secs 22-38 N CBC W/AUTO [id number] 11:07:00* Test Item Value Reference Range Interpretation Comme nts WHITE BLOOD CELL (test code = WBC) [...] pg 27.3-33.9 N MEAN CELL HGB CONCETRATION ( test code = MCHC) 33.6 gm/dL 32.0-34.2 N RED CELL DISTRIBUTION WIDTH (test code = RDW) 12.5 % 12.2-16.3 N PLATELET COUNT (test code = PLT) 297 K/mm3 134-363 N MEAN PLATELET VOLUME (test c ode = MPV) 9.8 fL 9.2-12.7 N NEUTROPHIL % (test code = NT%) 55.7 [...] = BA#) 0.1 K/mm3 RBC MORPHOLOGY REQUIRED (kj t code = RBCM) NORMAL NORMAL PLATELET MORPHOLOGY REQUIRED (test code = PLTMR) NORMAL NORMAL Notes Date/Time Note Provider Source 2020-09-17 07:14:00 [id number] SPmITEusWXHGKY+tNbGUZkEakiXH2 yp1AHLQXC[id number]:1 4:00 [facility]Discharge SummaryREPORT#:[id number] REPORT STATUS: SignedDATE:09/17/20 TIME: 713 PATIENT: RANULFO CADENA UNIT #: [id number]#: [id number] ROOM/BED: Replaced By [facility]-ADOB: [birth year] AGE: 39 SEX: F ATTEND: Sugar Wagner AUTHOR: Sugar Wagner MD * ALL edits or amendments must be made on the electronic/computer document * PCP PCPPCP:PCP: Sugar Wagner MD Discharge to: home General InformationFree Text A P:39 yo who is POD#1 s/p TLH/BS, cysto due to AUB-L. 1. POD#1-Heme: 14.6--> EBL: 100 cc--> 12.5. VSS. -GI: Regular diet -: Voiding freely-Pain: PO pain meds ordered-Incision: C/D/I. Dermabond in place. Incisional care reviewed. -DVT PPx: SCDs while in bed. Increased ambulation encouraged 2. PMH: Mood disorder/anxiety (on Lamictal 25 mg and Effexor 37.5, ordered in house)3. PSH: now s/p TLH/BS Dispo: Meeting appropriate post-op milestones. Anticipate d/c home today. Has post-op check scheduled in 2 weeks. Date of admission:Observation Start Date: 09/16/20Date of admission: 09/16/20 Discharge date: 09/17/20Admission diagnosis:AUB-LDischarge diagnosis:AUB-LHospital course:39 yo who is POD#1 s/p TLH/BS, cysto due to AUB-L. Meeting appropriate postop milestones. Deemed stable for d/c home on POD#1. Free Text General NotesFree Text General Notes:No acute events overnight. Pain now currently well controlled on PO meds. Tolerating a regular diet w/o N/V. Voiding and ambulating freely. Med Rec PCPPCP:PCP: Sugar Wagner MD Med RecDischarge meds:Stop taking the following medications:[BCP] Continue taking these medications:VENLAFAXINE (EFFEXOR) 37.5 MG TAB 37.5 MILLIGRAM ORAL DAILY. lamoTRIgine (LaMICtal) 25 MG TAB 25 MILLIGRAM ORAL DAILY. [IODINE SUPPLEMENT] Comments: 1 PILL DAILY CHOLECALCIFEROL (VITAMIN D3) (VITAMIN D3) 1,000 UNIT CAP 1,000 UNITS ORAL DAILY. ASCORBIC ACID (VITAMIN C) 500 MG TAB 500 MILLIGRAM ORAL DAILY. [[place] DERMAL] Comments: 1 PILL DAILY Start taking the following new medications:IBUPROFEN (MOTRIN) 600 MG TAB 600 MILLIGRAM ORAL EVERY 6 HOURS. as needed for mild to moderate pain Qty = 30 Refills = 1 OXYCODONE HCL (OXYCODONE HCL) 5 MG TAB 5 MILLIGRAM ORAL EVERY 6 HOURS NEEDED. as needed for SEVERE PAIN (SCALE 7-10) Qty = 10 No Refills DOCUSATE SODIUM (COLACE) 100 MG CAP 100 MILLIGRAM ORAL TWICE DAILY NEEDED. as needed for CONSTIPATION Qty = 30 Refills = 1 ObjectiveVS/I OLast Documented: Result Date Time Pulse Ox 98 09/17 321 B/P 129/77 09/17 321 B/P Mean 94.2 09/17 321 O2 Delivery Room air 09/17 321 Temp 98.4 09/17 321 Pulse 73 09/172 Resp 18 09/17 321 O2 Flow Rate 09/16 1726 24 hour I O ending at 0700: 09/17 1900 Intake Total 1000.00 1999. Output Total 1999 275 Balance -1000.00 1725.00 Intake, IV 1000.00 1999. Output, 100 Estimated Blood Loss Output, Urine 1999 175 Patient 163 lb Weight Weight Standing scale Measurement Method PATIENT WEIGHT: Weight (lb): 163Weight (oz): 2.27Weight (kg): 74.000 General appearance: alert, awake, oriented, no acute distress, pleasant, conversationalHead/Eyes: atraumaticRespiratory: no distressGI: soft, non-tender, no guarding, no rebound, no distentionGenitourinary: not indicatedExtremities: no edema-all extremitiesSkin: Incisions C/D/I. Dermabond in place ResultsFindings/Data:Laboratory Tests: 09/17 418 Hematology Hgb (10.1 - 13.8 g/dL) 12.5 Hct (32.5 - 41.8 %) 37.3 Results: labs reviewed, vital signs stable Discharge Instructions PCPPCP:PCP: Sugar Wagner MD )( Discharge to: Home/Self Care Discharge InstructionsAdditional Discharge Routines: Attending Follow-Up)( Diet: Resume Home Diet/Feeds)( Activity: As Tolerated, No [place] for 6 Wks, No Lifting >20lbs, No Strenuous Activity, Nothing in vagina pre f/uPrescriptions: e-prescribe Follow-up AppointmentsAttending Physician: Attending Physician: Sugar Wagner MD Special instructions:Follow-up in 2 weeks for a post-op check. Quality: Gen Med Crit Care Current MedicationsCurrent medication review:I attest that the foregoing medication list in the medical record is true, accurate, and complete to the best of my knowledge. at 7124 RPT #:[id number] OF REPORT DSDischarge [id number]:14:00F.[id number] ailable for patient suafGNGQOJLKOVUSUV8913-28-87U84:24:28 [facility] 2020-09-16 17:55:00 [id number] W4xt/kf+zB3dnY+6avhKv8RktU26U v3vQ+4ESY0Mj5SXipO2meVrlLc1l0THDj70356-55-43K04:5 5:00 [facility])Clinical NoteREPORT#:[id number] REPORT STATUS: SignedDATE:09/16/20 TIME: 1755 PATIENT: RANULFO CDAENA UNIT #: [id number]#: [id number] ROOM/BED: Replaced By [facility]-ADOB: [birth year] AGE: 39 SEX: F ATTEND: Sugar Wagner [facility] AUTHOR: Sugar Wagner MD * ALL edits or amendments must be made on the electronic/computer document * Clinical NoteNote:39 yo who is POD #0 s/p TLH/BS, cysto due to AUB-L. 1. POD#0-Heme: 14.6--> EBL: 100 cc--> AM repeat pending -GI: ADAT-: s/p goetz removal in OR. DTV-Pain: PO pain meds ordered-Incision: C/D/I. Dermabond in place-DVT PPx: SCDs and [place]. Increased ambulation encouraged 2. PMH: Mood disorder/anxiety (on Lamictal 25 mg and Effexor 37.5, ordered in house)3. PSH: now s/p TLH Dispo: Continue routine post-op care. Anticipate d/c home on POD#1. at 1804 RPT #:[id number] OF REPORT CLClinical [id number]:55:00F.[id number] able for patient qlbyZVUCJCPUDMXVVZ4113-25-98E79:04:55 [facility] 2020-09-16 16:21:00 [id number] NbJ2M7CADQha/AmDYe5XVBPLAkYtA fpc8JDB/btZfCm/rrIw1BCb5bgJ+0U34xF2674-79-99H51:2 1:00 [facility] ([facility])Full Op NoteREPORT#:[id number] REPORT STATUS: SignedDATE:09/16/20 TIME: 162 PATIENT: RANULFO CADENA UNIT #: [id number]#: [id number] ROOM/BED:: 79 AGE: 39 SEX: F ATTEND: Sugar Wagner AUTHOR: Sugar Wagner MD * ALL edits or amendments must be made on the electronic/computer document * Operative ReportStart date: 09/16/20art time: 1400Pre-procedure diagnosis:1. Abnormal Uterine Bleeding2. Uterine fibroids Post-procedure diagnosis:1. Abnormal Uterine Bleeding2. Uterine fibroids Procedures performed:Total Laparoscopic Hysterectomy, Bilateral Salpingectomy, Cystoscopy Technique/Procedure:Total Laparoscopic Hysterectomy, Bilateral Salpingectomy, Cystoscopy Primary Surgeon: Dr. Sugar Wildistant(s): Dr. Lucy Mendez , Dr. Cherie Graves Anesthesia: general anesthesiaIndications:Heavy menstrual bleeding with irregular cycles Operative findings:Enlarged uterus measuring 12 cm. Otherwise normal appearing uterus, bilateral fallopian tubes, and ovaries. Cystoscopy performed and bladder found to be intact and vigorous bilateral uretal efflux noted. Normal appearing upper abdomen and appendix were noted. Complications: noneEstimated blood loss in ml's: 100 cc Specimens removed/altered: Uterus, cervix, and bilateral fallopian tubes Cultures sent: NoDrain(s)/tube(s): noneImplant(s): noneFluids:1600 cc Urine output:175 cc of clear urine drained per goetz catheter Approach: laparoscopicDisposition: MEDSURGCounts: Sponge count: correct Instrument count: correct Needle count: correct Cottonoid count: correct Edgar clip count: correctWound class: clean-contaminated Free Text Op NotesFree Text Op Notes:After informed consent was obtained, the patient was taken to the operating roomwhere general anesthesia was administered and found to be adequate. She was thenprepped and draped in sterile fashion in lithotomy position in [facility]. Atime out procedure was performed and the OR team agreed to the planned procedure. A weighted speculum was placed in the patient s vagina. A single tooth tenaculumwas used to grasp the anterior lip of the cervix. The uterus sounded to 12 cm. ARUMI/Grzegorz colpotomy cup/vaginal occulder balloon was then placed vaginally without difficulty. The Goetz catheter was placed and found to be draining clearurine. Attention was then turned to the abdomen where 0.25% Marcaine was used to injectthe umbilicus. A 5mm skin incision was made with the scalpel. The peritoneal cavity was entered using the [employer]. Intra-peritoneal placement was confirmed visually and the gas was used to insufflate the abdomen to a pressure of 15mm Hg. The underlying abdominal organs were inspected and no abnormalities were noted. Ports were then placed in the right lower quadrant, left lower quadrant and suprapubic area after injection of 0.25% Marcaine. These ports were all placed under direct visualization without any direct injury noted. A survey of the abdomen was performed: see operative findings for full details. The Harmonic scapel was used to perform the bilateral salpingectomy. Following bipolar coagulation, the Harmonic scalpel was used to transect the utero-ovarianligaments bilaterally. The round ligaments were transected bilaterally. The anterior leaf of the broad ligament was incised along the bladder reflection. The bladder flap was created and the bladder was dissected off the lower uterinesegment and cervix without any direct injury noted. The posterior leaf of the broad ligament was transected down to the level of thecolpotomy cup and the uterine arteries were skeletonized bilaterally. The uterine arteries were identified bilaterally and cauterized. They were transected and hemostasis was noted. The uterus was inspected and found to be blanching. The colpotomy was performed around the Grzegorz colpotomy cup without difficulty. Theuterus was removed easily through the vagina. A lap filled glove was placed vaginally to maintain pneumo-peritoneum. A V-lock suture was placed through the vagina and was used to close the vaginal cuff in a running fashion. Careful attention was made to ensure good bites of the vaginal mucosa anteriorly and posteriorly. The V-lock suture was cut using the endoshears and removed through the left lower quadrant port. The abdomen was thoroughly irrigated and pedicles were inspected and found to behemostatic. The pedicles were checked under low pressure and hemostasis was ensured. Attention was then turned to perform the cystoscopy. The cystocope was introduced into the bladder. The bladder was thoroughly inspected and found to be intact and free from any perforating sutures. Vigorous bilateral ureteral efflux was noted. The gas was then released from the patient s abdomen. The skin was closed using 3.0 Monocryl and Dermabond. The lap filled glove was removed from the patient s vagina. A vaginal sweep was performed and noted to be clear. The patient tolerated the procedure well. She was taken to recovery room in stable condition. Sponge, lap and needle counts were correct times 2. The radiofrequency scan was performed for retained sponges and was negative. Antibiotics were given prior to the start of surgery for surgical prophylaxis. at 1643 [facility] #:[id number] OF REPORT OPOperative [id number]:21:00F.[id number] ilable for patient xgeoPNFZYUDEXXIXTF7351-21-40R95:43:40 [facility]
--- NOTE | 2023-05-09 03:30 | EDPHYS ---
Physician Documentation [facility] Name: Melissa Leavitt Age: 42 yrs Sex: Female : 1980 Arrival Date: 05/08/2023 Time: 23:55 Bed 17 Private MD: ED Physician Beni Liang HPI: 05/08 03:26 This 42 yrs old Female presents to ER via Ambulatory with complaints of Vaginal Pain, ci PT states she is hearing voices every 2-3 weeks. 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 - Social history:: Smoking status: Patient reports the use of cigarette tobacco products, denies chronic smoking, but will smoke occasionally, Patient uses street drugs, Methamphetamine (Meth) Amphetamine use within last 24 hrs. Vital Signs: 00:05 BP 124 / 94; Pulse 105; Resp 16; Temp 98.5(TE); Pulse Ox 100% on R/A; Weight 63.5 kg jb4 (R); Height 5 ft. 6 in. (R); Pain 4/10; 01:43 BP 129 / 96; Pulse 86; Resp 16 S; Pulse Ox 100% on R/A; jw7 02:30 BP 113 / 76; Pulse 88; Resp 16 S; Pulse Ox 99% on R/A; jw7 03:30 BP 115 / 74; Pulse 84; Resp 16 S; Pulse Ox 100% on R/A; jw7 00:05 Body Mass Index 22.60 (63.50 kg, 167.64 cm) jb4 00:05 Pain Scale: Adult jb4 MDM: 00:32 Patient medically screened. ci Administered Medications: No medications were administered Disposition Summary: 05/09/23 03:29 Discharge Ordered Notes: Location: Home ci Condition: Stable ci Diagnosis - Auditory hallucinations ci - Other specified noninflammatory disorders of vagina - Vaginitis ci Followup: ci - With: Private Physician - When: 1 - 2 days - Reason: Recheck today's complaints, Re-evaluation by your physician Discharge Instructions: - Discharge Summary Sheet ci - Substance Use Disorder ci - Psychosis ci Forms: - Medication Reconciliation Form ci - Thank You Letter ci - Antibiotic Education ci - Prescription Opioid Use ci - Patient Portal Instructions ci - Leadership Thank You Letter ci Signatures: Dispatcher [employer] Eliud Sheets RN RN jb4 MaryuriunekBeni holman Corrections: (The following items were deleted from the chart) 04:05 02:04 Pelvic Exam Setup ordered. ci jw7
--- NOTE | 2023-05-09 03:30 | ER ---
Nurse's Notes [facility] Name: Melissa Leavitt Age: 42 yrs Sex: Female : 1980 Arrival Date: 05/08/2023 Time: 23:55 Bed 17 Private MD: Diagnosis: Auditory hallucinations;Other specified noninflammatory disorders of vagina-Vaginitis Presentation: 05/08 00:05 Chief complaint: Patient states: I feel a cutting sensation higher in my vagina. I am jb4 hearing voices that sound like they are a speaker in the wall. Coronavirus screen: At this time, the client does not indicate any symptoms associated with coronavirus-19. Ebola Screen: No symptoms or risks identified at this time. Initial Sepsis Screen: Does the patient meet any 2 criteria? HR > 90 bpm. Does the patient have a suspected source of infection? No. Patient's initial sepsis screen is negative. Risk Assessment: Do you want to hurt yourself or someone else? Patient reports no desire to harm self or others. Onset of symptoms was May 08, 2023. Transition of care: patient was not received from another setting of care. 00:05 Method Of Arrival: Ambulatory jb4 00:05 Acuity: FRIDA 3 jb4 Triage Assessment: 00:08 General: Appears in no apparent distress. comfortable, Behavior is cooperative, jb4 anxious. Pain: Complains of pain in Vaginal pain. Pain does not radiate. Pain currently is 4 out of 10 on a pain scale. EENT: No signs and/or symptoms were reported regarding the EENT system. Neuro: Level of Consciousness is awake, alert, obeys commands, Oriented to person, place, time, situation. Cardiovascular: Patient's skin is warm and dry. Respiratory: Airway is patent Respiratory effort is even, unlabored, Respiratory pattern is regular, symmetrical. GI: No signs and/or symptoms were reported involving the gastrointestinal system. : No signs and/or symptoms were reported regarding the genitourinary system. Derm: Skin is intact, Skin is pink, warm \\T\\ dry. Musculoskeletal: Circulation, motion, and sensation intact. Range of motion: intact in all extremities. 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 - Social history:: Smoking status: Patient reports the use of cigarette tobacco products, denies chronic smoking, but will smoke occasionally, Patient uses street drugs, Methamphetamine (Meth) Amphetamine use within last 24 hrs. Screenin:34 [facility] ED Fall Risk Assessment (Adult) History of falling in the last 3 months, jw7 including since admission No falls in past 3 months (0 pts) Confusion or Disorientation No (0 pts) Intoxicated or Sedated No (0 pts) Impaired Gait No (0 pts) Mobility Assist Device Used No (0 pt) Altered Elimination No (0 pt) Score/Fall Risk Level 0 - 2 = Low Risk Oriented to surroundings, Maintained a safe environment, Educated pt \\T\\ family on fall prevention, incl call for assistance when getting out of bed. Abuse screen: Denies threats or abuse. Denies injuries from another. Nutritional screening: No deficits noted. Tuberculosis screening: No symptoms or risk factors identified. Assessment: 01:40 General: Pt States "It feels like there is something in my Vagina that shouldn't be jw7 there and it feels like it is cutting me. I've also been hearing voices over the last couple weeks that have been screaming at me" . 01:42 General: Appears in no apparent distress. comfortable, Behavior is calm, cooperative, jw7 agitated. Pain: Complains of pain in Vagina Pain does not radiate. Pain currently is 4 out of 10 on a pain scale. Quality of pain is described as stabbing, stinging, Pain began suddenly, Is continuous. Neuro: Level of Consciousness is awake, alert, obeys commands, Oriented to person, place, time, situation. Cardiovascular: Heart tones S1 S2 present Capillary refill < 3 seconds Clubbing of nail beds is absent JVD is absent Patient's skin is warm and dry. Respiratory: Airway is patent Trachea midline Respiratory effort is even, unlabored, Respiratory pattern is regular, symmetrical. GI: Abdomen is flat, non-distended, Bowel sounds present X 4 quads. Abd is soft and non tender X 4 quads. : No deficits noted. No signs and/or symptoms were reported regarding the genitourinary system. EENT: No deficits noted. No signs and/or symptoms were reported regarding the EENT system. Derm: Skin is intact, is healthy with good turgor, Skin is dry, Skin is normal, Skin temperature is warm. Musculoskeletal: Circulation, motion, and sensation intact. Range of motion: intact in all extremities. 02:30 General: Pt refused to give urine sample for UA . jw7 02:40 Reassessment: Patient appears in no apparent distress at this time. No changes from jw7 previously documented assessment. Patient and/or family updated on plan of care and expected duration. Pain level reassessed. Patient is alert, oriented x 3, equal unlabored respirations, skin warm/dry/pink. 02:48 Reassessment: Pt refusing pelvic exam at this time. Pt states that she does not feel cm10 comfortable and would like to go see her adoption specialist instead. 03:45 Reassessment: Patient appears in no apparent distress at this time. No changes from jw7 previously documented assessment. Patient and/or family updated on plan of care and expected duration. Pain level reassessed. Patient is alert, oriented x 3, equal unlabored respirations, skin warm/dry/pink. Vital Signs: 00:05 BP 124 / 94; Pulse 105; Resp 16; Temp 98.5(TE); Pulse Ox 100% on R/A; Weight 63.5 kg jb4 (R); Height 5 ft. 6 in. (R); Pain 4/10; 01:43 BP 129 / 96; Pulse 86; Resp 16 S; Pulse Ox 100% on R/A; jw7 02:30 BP 113 / 76; Pulse 88; Resp 16 S; Pulse Ox 99% on R/A; jw7 03:30 BP 115 / 74; Pulse 84; Resp 16 S; Pulse Ox 100% on R/A; jw7 00:05 Body Mass Index 22.60 (63.50 kg, 167.64 cm) jb4 00:05 Pain Scale: Adult jb4 ED Course: 05/07 23:55 Patient arrived in ED. jj6 05/08 00:08 Triage completed. jb4 00:08 Arm band placed on right wrist. jb4 00:32 Beni Liang is Attending Physician. ci 01:34 Amber Polanco, RN is Primary Nurse. jw7 01:34 Patient has correct armband on for positive identification. Bed in low position. Call jw7 light in reach. Side rails up X 1. Provided Education on: Use of Call Light. 04:05 No provider procedures requiring assistance completed. Patient did not have IV access jw7 during this emergency room visit. Administered Medications: No medications were administered Medication: 03:01 VIS not applicable for this client. jw7 Outcome: 03:29 Discharge ordered by . miranda 04:05 Discharged to home ambulatory, jw7 04:05 Condition: stable 04:05 Discharge instructions given to patient, Instructed on discharge instructions, follow up and referral plans. Demonstrated understanding of instructions, follow-up care, 04:06 Patient left the ED. jw7 Signatures: Eliud Goodwin, RN RN jb4 Jazmín Phamj6 Amber Polanco, RN RN jw7 Alka Buck, RN RN cm10 Beni Liang
[2023-05-09 04:48] VITALS: BP 115/74; TEMP 98.5; O2SAT 100
== END ==
LOC: ER 23:55
DX: R44.0 Auditory hallucinations (principal); N76.0 Acute vaginitis

== ENCOUNTER 2023-10-26 07:09 | Emergency (ER) | payer OTHER, SELFPAY ==
--- OUTSIDE RECORDS SUMMARY | 2023-10-26 07:12 | XMS REPORT | Continuity of Care Document ---
Author Name Unknown Address [address] [place] [address] [facility] thconnect Address 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 Role Phone Pcp, Patient Does Not Have A Primary Care Physic srinivasan [email or web address] Attending Clinician UnavailBeth Umana Attending Clinician [phone] BETH REYES Attending Clinician Unavailable Doctor Unassigned, [place] Attending Clinician Jarrell Santos MD Attending Clinician [phone] JARRELL BENNETT Attending Clinician UnavailHAYDEE Hager Attending Clinician Unavaila HAYDEE Sanchez Attending Clinician Unavaila avtar RADIOLOGY Attending Clinician Unavailable Radiology Attending Clinician Unavailable Alyssa APPIAH Attending Clinician Unavailable Alyssa Gonzalez Attending Clinician [phone] Sugar Wagner Attending Clinician Unavailable [email or web address]_S Admitting Clinician Unavaila QUIRINO Johnson JR Admitting Clinician Unavailab Sugar Manriquez Admitting Clinician Unavailable Payers Payer Name Policy Type Policy Number Effective Date Expirati on Date Source Problems Condition Name Condition Details Condition Category Status Onset Date Resolution Date Last Treatment Date Treating Clinician Comments Source No known active problems No known active problems Disease [facility] Allergies, Adverse Reactions, Alerts Allergy Name Allergy Type Status Severity Reaction(s) Onset Date Inactive Date Treating Clinician Comments Source Penicill ins Propensi ty to adverse reaction s Active Unknown - See comments 2020-02 00:00: 00 [facility] Penicill ins Propensi ty to adverse reaction s Active Unknown - See comments 2020-02 00:00: 00 [facility] PENICILL INS Drug Class Active Unknown-Cmnt 2020-02 00:00: 00 [facility] Penicill ins Propensi ty to adverse reaction s Active Unknown - See comments 2020-02 00:00: 00 [facility] Penicill ins DA Active U 'SINCE BABY NOT SURE OF REACTION' 09-15 00:00: 00 [facility] Penicill ins DA Active U 09-15 00:00: 00 [facility] [place] NO KNOWN ALLERGIE S Drug Class Active [facility] Social History Social Habit Start Date Stop Date Quantity Comments Source Exposure to SARS-CoV-2 (event) 2022-02-14 00:00:00 2022-02-24 13:05:00 Not sure [facility] Alcohol intake 2022-02-24 00:00:00 2022-02-24 00:00:00 Lifetime non-drinker (finding) [facility] Tobacco use and exposure 2022-01-19 00:00:00 2022-01-19 00:00:00 Smokeless tobacco non-user [facility] Sex Assigned At 1980 00:00:00 1980 00:00:00 [facility] Smoking Status Start Date Stop Date Source Unknown if ever smoked [facility] Never smoked tobacco [facility] Medications Ordered Medication Name Filled Medication Name Start Date Stop Date Current Medication? Ordering Clinician Indication Dosage Frequency Signature (SIG) Comments Components Source methocarbam oL 500 mg tablet 2021-02 00:00: 00 Yes [facility] traMADoL 50 mg tablet 2021-02 1-28 00:00: 00 Yes [facility] clonazePAM 1 mg tablet 2021-02 1-16 00:00: 00 Yes [facility] buprenorphi ne-naloxone 8-2 mg sublingual film 2021-02 1-14 00:00: 00 Yes DISSOLVE 1/2 FILM UNDER THE TONGUE EVERY DAY [facility] gabapentin 300 mg capsule 2021-02 1-09 00:00: 00 Yes TAKE ONE (1) CAPSULE(S) BY MOUTH FOUR TIMES A DAY NEEDED FOR WITHDRAWAL SYMPTOMS. [facility] DULoxetine 60 mg capsule 2021-02 0-20 00:00: 00 Yes 60mg Take 60 mg by mouth in the morning. [facility] ALPRAZolam 0.5 mg tablet 2021-02 0- 00:00: 00 Yes TAKE ONE (1) TABLET(S) BY MOUTH DAILY NEEDED. [facility] REXULTI 1 mg Tab 2021-02 0-19 00:00: 00 Yes 1{tbl} Take 1 tablet by mouth daily. [facility] melatonin 3 mg tablet 2021-02 0-13 00:00: 00 Yes [facility] traZODone 50 mg tablet 2021-02 0-09 00:00: 00 Yes [facility] Vital Signs Vital Name Observation Time Observation Value Comments S radha Body height 2022-02-24 19:11:00 167.6 cm [facility] Body weight 2022-02-24 19:11:00 73.483 kg [facility] BMI 2022-02-24 19:11:00 26.15 kg/m2 [facility] Body height 2022-02-10 19:00:00 167.6 cm [facility] Body weight 2022-02-10 19:00:00 73.483 kg [facility] BMI 2022-02-10 19:00:00 26.15 kg/m2 [facility] Body height 2022-01-19 19:06:00 167.6 cm [facility] Body weight 2022-01-19 19:06:00 73.483 kg [facility] BMI 2022-01-19 19:06:00 26.15 kg/m2 [facility] Systolic blood pressure 2021-02-04 22:48:00 123 mm[Hg] [facility] Diastolic blood pressure 2021-02-04 22:48:00 86 mm[Hg] [facility] Heart rate 2021-02-04 22:48:00 86 /[facility] Body temperature 2021-02-04 22:48:00 37.22 Fernanda [facility] Respiratory rate 2021-02-04 22:48:00 18 /min [facility] Body weight 2021-02-04 22:48:00 79.379 kg [facility] Oxygen saturation in Arterial blood by Pulse oximetry 2021-02-04 22:48:00 100 /min [facility] Procedures Procedure Date / Time Performed Performing Clinician Source OP CORRESPONDENCE 2022-03-22 06:01:00 Doctor Alix ssigned, [place] [facility] EXTERNAL PROVIDER RECORDS 2022-02-02 06:01:00 Do ctor Unassigned, [place] [facility] BI SCREENING TOMOSYNTHESIS BILATERAL 2021-08-13 20:52:45 Requisition, Paper [facility] ASSIGNMENT OF BENEFITS 2021-08-13 20:18:45 Docto r Unassigned, [place] [facility] CONSENT/REFUSAL FOR DIAGNOSIS AND TREATMENT 2021-02-04 22:43:49 Doctor Unassigned, [place] [facility] NOTICE OF PRIVACY PRACTICES 2021-02-04 22:43:35 Doctor Unassigned, [place] [facility] Encounters Start Date/Time End Date/Time Encounter Type Admission Type Attending Clinicians Care Facility Care Department Encounter ID Source 2022-12-17 00:00:00 2022-12-17 00:00:00 Outpatient GC_GCBZW_Ka jovani_Ramya [facility] [id number] [facility] 2022-04-23 00:00:00 2022-04-23 00:00:00 Telephone Beth Reyes COUNT INCLUDES [facility] 1.840.114 350.1.13.10 4.2.7.2.686 [id number] [facility] 2022-04-22 16:15:00 2022-04-22 16:15:00 Outpatient R BETH REYES [facility] [id number] [facility] 2022-03-29 13:30:00 2022-03-29 13:30:00 Outpatient Deepak REYES [facility] [id number] [facility] 2022-03-22 00:00:00 2022-03-22 00:00:00 Orders Only Doctor Unassigned, [place] [facility] 1.840.114 350.1.13.10 4.2.7.2.686 [id number] [facility] 2022-02-25 00:00:00 2022-02-25 00:00:00 Telephone Jarrell Bennett [facility] 1.840.114 350.1.13.10 4.2.7.2.686 [id number] [facility] 2022-02-24 13:15:00 2022-02-24 23:59:00 Outpatient Deepak REYES [facility] [id number] [facility] 2022-02-24 13:00:00 2022-02-24 13:15:00 Office Visit Beth Reyes [facility] 1.840.114 350.1.13.10 4.2.7.2.686 [id number] [facility] 2022-02-24 00:00:00 2022-02-24 00:00:00 Telephone Sherice Jarrell [facility] MEDICAL OFFICE BUILDING 1.840.114 350.1.13.10 4.2.7.2.686 [id number] [facility] 2022-02-22 14:15:00 2022-02-22 14:15:00 Outpatient BETH RODRIGEZ [facility] [id number] [facility] 2022-02-19 10:15:00 2022-02-19 10:15:00 Outpatient BETH RODRIGEZ [facility] [id number] [facility] 2022-02-19 09:45:00 2022-02-19 09:45:00 Outpatient Deepak REYES [facility] [id number] [facility] 2022-02-19 00:00:00 2022-02-19 00:00:00 Telephone Hannah [facility] MEDICAL OFFICE BUILDING 1.2.840.114 350.1.13.10 4.2.7.2.686 [id number] [facility] 2022-02-12 00:00:00 2022-02-12 00:00:00 Telephone Hannah Norton [facility] 1.2.840.114 350.1.13.10 4.2.7.2.686 [id number] [facility] 2022-02-10 13:00:00 2022-02-10 13:46:47 Outpatient BETH RODRIGEZ [facility] [id number] [facility] 2022-02-10 13:00:00 2022-02-10 13:15:00 Office Visit Hannah Norton [facility] 1.2.840.114 350.1.13.10 4.2.7.2.686 [id number] [facility] 2022-02-08 14:45:00 2022-02-08 14:45:00 Outpatient Deepak REYES BETH [facility] [id number] [facility] 2022-02-02 00:00:00 2022-02-02 00:00:00 Orders Only Doctor Unassigned, [place] [facility] 1.2.840.114 350.1.13.10 4.2.7.2.686 [id number] [facility] 2022-01-28 10:15:00 2022-01-28 10:15:00 Outpatient R BETH REYES [facility] [id number] [facility] 2022-01-25 00:00:00 2022-01-25 00:00:00 Telephone Jarrell Bennett [facility] MED[facility] OFFICE BUILDING 1.2.840.114 350.1.13.10 4.2.7.2.686 [id number] [facility] 2022-01-25 00:00:00 2022-01-25 00:00:00 Telephone Beth Reyes [facility] MEDICAL OFFICE BUILDING 1.2.840.114 350.1.13.10 4.2.7.2.686 [id number] [facility] 2022-01-22 00:00:00 2022-01-22 00:00:00 Telephone Sherice Jarrell F[facility] MED[facility] OFFICE BUILD[facility] 1.2.840.114 350.1.13.10 4.2.7.2.686 [id number] [facility] 2022-01-20 00:00:00 2022-01-20 00:00:00 Telephone Hannah Beth [facility] OFF[facility] BU[facility] 1.2.840.114 350.1.13.10 4.2.7.2.686 [id number] [facility] 2022-01-19 14:00:00 2022-01-19 14:04:00 Outpatient R JARRELL BENNETT [facility] [id number] [facility] 2022-01-19 13:00:00 2022-01-19 13:30:00 Office Visit Beth Reyes COUNT INCLUDES [facility] 1.840.114 350.1.13.10 4.2.7.2.686 [id number] [facility] 2021-11-16 15:15:00 2021-11-16 15:15:00 Outpatient R BREECUBA HAYDEE BLAIR, HAYDEE [facility] [id number] [facility] 2021-11-16 08:00:00 2021-11-16 08:00:00 Outpatient R BREEHAYDEE BRINK BLAIR MANDYBRUNO [facility] [id number] [facility] 2021-08-13 15:25:11 2021-08-13 23:59:00 Outpatient R RADIOLOGY [facility] [id number] [facility] 2021-08-13 15:00:00 2021-08-13 23:59:00 Hospital Encounter Radiology [facility] 1.2840.114 350.1.13.10 4.2.7.2.686 [id number] [facility] 2021-08-13 00:00:00 2021-08-13 00:00:00 Orders Only Doctor Unassigned, [place] [facility] 1.2840.114 350.1.13.10 4.2.7.2.686 [id number] [facility] 2021-02-04 16:50:00 2021-02-04 18:22:00 Emergency X Alyssa APPIAH [facility] ERT [id number] [facility] 2021-02-04 16:50:00 2021-02-04 18:22:00 Emergency Alyssa Appiah [facility] 1.2840.114 350.1.13.10 4.2.7.2.686 [id number] [facility] 2020-09-16 16:27:00 2020-09-17 10:25:00 Inpatient Sugar Lester [facility].01 [id number] [facility] Results Test Description Test Time Test Comments Results Result Co mments Source HGB [id number] 04:36:00* Test Item Value Reference Range Interpretation Comme nts HEMOGLOBIN (test code = HGB) 12.5 g/dL 10.1-13.8 N HEMATOCRIT (test code = HCT) 37.3 % 32.5-41.8 N HCG SERUM [id number] 11:17:00* Test Item Value Reference Range Interpretation Comme nts HCG SERUM QUAL (test code = HCGQL) NEGATIVE PROTHROMBIN [id number] 11:11:00* Test Item Value Reference Range Interpretation Comme nts PROTHROMBIN TIME PATIENT (te st code = PTP) 10.5 secs 10.1-12.3 N THROMBOPLASTIN TIME [id number] 11:11:00* Test Item Value Reference Range Interpretation Comme nts THROMBOPLASTIN TIME PARTIAL (test code = PTT) 29.7 secs 22-38 N CBC W/AUTO [id number] 11:07:00* Test Item Value Reference Range Interpretation [...] Notes Date/Time Note Provider Source 2020-09-17 07:14:00 [facility] Discharge Summary REPORT#:[id number] REPORT STATUS: Signed DATE:09/17/20 TIME: 713 PATIENT: RANULFO CADENA UNIT #: [id number] ROOM/BED: [address] : [address] AGE: 39 SEX: F ATTEND: Sugar Wagner MD ADM AUTHOR: Sugar Wagner MD * ALL edits or amendments must be made on the electronic/computer document * PCP PCP PCP: PCP: Sugar Wagner MD Discharge to: home General Information Free Text A P: 39 yo who is POD#1 s/p TLH/BS, cysto due to AUB-L. 1. POD#1 -Heme: 14.6--> EBL: 100 cc--> 12.5. VSS. -GI: Regular diet -: Voiding freely -Pain: PO pain meds ordered -Incision: C/D/I. Dermabond in place. Incisional care reviewed. -DVT PPx: SCDs while in bed. Increased ambulation encouraged 2. PMH: Mood disorder/anxiety (on Lamictal 25 mg and Effexor 37.5, ordered in house) 3. PSH: now s/p TLH/BS Dispo: Meeting appropriate post-op milestones. Anticipate d/c home today. Has post-op check scheduled in 2 weeks. Date of admission: Observation Start Date: 09/16/20 Date of admission: 09/16/20 Discharge date: 09/17/20 Admission diagnosis: AUB-L Discharge diagnosis: AUB-L Hospital course: 39 yo who is POD#1 s/p TLH/BS, cysto due to AUB-L. Meeting appropriate postop milestones. Deemed stable for d/c home on POD#1. Free Text General Notes Free Text General Notes: No acute events overnight. Pain now currently well controlled on PO meds. Tolerating a regular diet w/o N/V. Voiding and ambulating freely. Med Rec PCP PCP: PCP: Sugar Wagner MD Med Rec Discharge meds: Stop taking the following medications: [BCP] Continue taking these medications: VENLAFAXINE (EFFEXOR) 37.5 MG TAB 37.5 MILLIGRAM ORAL DAILY. lamoTRIgine (LaMICtal) 25 MG TAB 25 MILLIGRAM ORAL DAILY. [IODINE SUPPLEMENT] Comments: 1 PILL DAILY CHOLECALCIFEROL (VITAMIN D3) (VITAMIN D3) 1,000 UNIT CAP 1,000 UNITS ORAL DAILY. ASCORBIC ACID (VITAMIN C) 500 MG TAB 500 MILLIGRAM ORAL DAILY. [BOISE DERMAL] Comments: 1 PILL DAILY Start taking the following new medications: IBUPROFEN (MOTRIN) 600 MG TAB 600 MILLIGRAM ORAL [...] CONSTIPATION Qty = 30 Refills = 1 Objective VS/I O Last Documented: Result Date Time Pulse Ox 98 09/17 321 B/P 129/77 09/17 321 B/P Mean 94.2 09/17 321 O2 Delivery Room air 09/17 321 Temp 98.4 09/17 321 Pulse 73 09/17 321 Resp 18 07/28 0322 O2 Flow Rate 09/16 1726 24 hour I O ending at 0700: 09/17 0709/16 1900 Intake Total 1000.00 1999. Output Total 1999 275 Balance -1000.00 1725.00 Intake, IV 1000.00 1999.00 Output, 100 Estimated Blood Loss Output, Urine 1999 175 Patient 163 lb Weight Weight Standing scale Measurement Method PATIENT WEIGHT: Weight (lb): 163 Weight (oz): 2.27 Weight (kg): 74.000 General appearance: alert, awake, oriented, no acute distress, pleasant, conversational Head/Eyes: atraumatic Respiratory: no distress GI: soft, non-tender, no guarding, no rebound, no distention Genitourinary: not indicated Extremities: no edema-all extremities Skin: Incisions C/D/I. Dermabond in place Results Findings/Data: Laboratory Tests: 09/179 Hematology Hgb (10.1 - 13.8 g/dL) 12.5 Hct (32.5 - 41.8 %) 37.3 Results: labs reviewed, vital signs stable Discharge Instructions PCP PCP: PCP: Sugar Wagner MD )( Discharge to: Home/Self Care Discharge Instructions Additional Discharge Routines: Attending Follow-Up )( Diet: Resume Home Diet/Feeds )( Activity: As Tolerated, No Ribera for 6 Wks, No Lifting >20lbs, No Strenuous Activity, Nothing in vagina pre f/u Prescriptions: e-prescribe Follow-up Appointments Attending Physician: Attending Physician: Sugar Wagner MD Special instructions: Follow-up in 2 weeks for a post-op check. Quality: Gen Med Crit Care Current Medications Current medication review: I attest that the foregoing medication list in the medical record is true, accurate, and complete to the best of my knowledge. at 0724 RPT #:[id number] END OF REPORT [facility] 2020-09-16 17:55:00 [facility] ([facility]) Clinical Note REPORT#:[id number] REPORT STATUS: Signed DATE:09/16/20 TIME: 1754 PATIENT: RANULFO CADENA UNIT #: [id number] ROOM[facility]BED: [facility] : 78 AGE: 39 SEX: F ATTEND: Sugar Wagner MD ADM AUTHOR: Sugar Wagner MD * ALL edits or amendments must be made on the electronic/computer document * Clinical Note Note: 39 yo who is POD #0 s/p TLH/BS, cysto due to AUB-L. 1. POD#0 -Heme: 14.6--> EBL: 100 cc--> AM repeat pending -GI: ADAT -: s/p goetz removal in OR. DTV -Pain: PO pain meds ordered -Incision: C/D/I. Dermabond in place -DVT PPx: SCDs and Scott Hose. Increased ambulation encouraged 2. PMH: Mood disorder/anxiety (on Lamictal 25 mg and Effexor 37.5, ordered in house) 3. PSH: now s/p TLH Dispo: Continue routine post-op care. Anticipate d/c home on POD#1. at 1804 RPT #:[id number] END OF REPORT [facility] 2020-09-16 16:21:00 [facility] ([facility] Full Op Note REPORT#:[id number] REPORT STATUS: Signed DATE:09/16/20 TIME: 1621 PATIENT: RANULFO CADENA UNIT #: [id number] ROOM/BED: : 79 AGE: 39 SEX: F ATTEND: Sugar Wagner MD ADM AUTHOR: Sugar Wagner MD * ALL edits or amendments must be made on the electronic/computer document * Operative Report Start date: 09/16/20 Start time: 1400 Pre-procedure diagnosis: 1. Abnormal Uterine Bleeding 2. Uterine fibroids Post-procedure diagnosis: 1. Abnormal Uterine Bleeding 2. Uterine fibroids Procedures performed: Total Laparoscopic Hysterectomy, Bilateral Salpingectomy, Cystoscopy Technique/Procedure: Total Laparoscopic Hysterectomy, Bilateral Salpingectomy, Cystoscopy Primary Surgeon: Dr. Sugar Wagner Physical Medicine Physician(s): Dr. Lucy Mendez , Dr. Cherie Graves Anesthesia: general anesthesia Indications: Heavy menstrual bleeding with irregular cycles Operative findings: Enlarged uterus measuring 12 cm. Otherwise normal appearing uterus, bilateral fallopian tubes, and ovaries. Cystoscopy performed and bladder found to be intact and vigorous bilateral uretal efflux noted. Normal appearing upper abdomen and appendix were noted. Complications: none Estimated blood loss in ml's: 100 cc Specimens removed/altered: Uterus, cervix, and bilateral fallopian tubes Cultures sent: No Drain(s)/tube(s): none Implant(s): none Fluids: 1600 cc Urine output: 175 cc of clear urine drained per goetz catheter Approach: laparoscopic Disposition: MEDSURG Counts: Sponge count: correct Instrument count: correct Needle count: correct Cottonoid count: correct Edgar clip count: correct Wound class: clean-contaminated Free Text Op Notes Free Text Op Notes: After informed consent was obtained, the patient was taken to the operating room where general anesthesia was administered and found to be adequate. She was then prepped and draped in sterile fashion in lithotomy position in [facility]. A time out procedure was performed and the OR team agreed to the planned procedure. A weighted speculum was placed in the patient s vagina. A single tooth tenaculum was used to grasp the anterior lip of the cervix. The uterus sounded to 12 cm. A DENIA/Grzegorz colpotomy cup/vaginal occulder balloon was then placed vaginally without difficulty. The Goetz catheter was placed and found to be draining clear urine. Attention was then turned to the abdomen where 0.25% Marcaine was used to inject the umbilicus. A 5mm skin incision was made with the scalpel. The peritoneal cavity was entered using the Optiview. Intra-peritoneal placement was confirmed visually and the [...] Harmonic scalpel was used to transect the utero-ovarian ligaments bilaterally. The round ligaments were transected bilaterally. The anterior leaf of the broad ligament was incised along the bladder reflection. The bladder flap was created and the bladder was dissected off the lower uterine segment and cervix without any direct injury noted. The posterior leaf of the broad ligament was transected down to the level of the colpotomy cup and the uterine arteries were skeletonized bilaterally. The uterine arteries were identified bilaterally and cauterized. They were transected and hemostasis was noted. The uterus was inspected and found to be blanching. The colpotomy was performed around the Grzegorz colpotomy cup without difficulty. The uterus was removed easily through the vagina. A [...] and pedicles were inspected and found to be hemostatic. The pedicles were checked under low pressure [...] start of surgery for surgical prophylaxis. at 1093 [facility] #:[id number] END OF REPORT [facility]
[2023-10-26] MEDS ORDERED: IBUPROFEN 200 MG TAB PO ONE (07:54)
--- NOTE | 2023-10-26 08:35 | RAD REPORT ---
EXAM DESCRIPTION: RAD - Foot Left 3 View - 10/26/2023 8:29 am CLINICAL HISTORY: PAIN COMPARISON: No comparisons FINDINGS: No acute fracture or dislocation seen.
--- NOTE | 2023-10-26 08:46 | ER ---
Nurse's Notes [facility] Name: Melissa Leavitt Age: 43 yrs Sex: Female : 1980 Arrival Date: 10/26/2023 Time: 07:09 Bed 20 Private MD: Diagnosis: Pain in left foot Presentation: 10/25 07:23 Chief complaint: Patient states: L foot pain and slipping and hitting her bed last ll1 night. Coronavirus screen: Client denies travel out of the [place] in the last 14 days. At this time, the client does not indicate any symptoms associated with coronavirus-19. Ebola Screen: Patient denies travel to an Ebola-affected area in the 21 days before illness onset. Initial Sepsis Screen: Does the patient meet any 2 criteria? No. Patient's initial sepsis screen is negative. Does the patient have a suspected source of infection? No. Patient's initial sepsis screen is negative. Risk Assessment: Do you want to hurt yourself or someone else? Patient reports no desire to harm self or others. Onset of symptoms was October 25, 2023. 07:23 Method Of Arrival: Wheelchair ll1 07:23 Acuity: FRIDA 4 ll1 Historical: - Allergies: 07:17 PENICILLINS; ll1 - PMHx: 07:17 anxiety/depression; ll1 - PSHx: 07:17 hysterectomy; ll1 - Immunization history:: Adult Immunizations up to date. - Infectious Disease History:: Denies. - Social history:: Smoking status: Patient reports the use of cigarette tobacco products, denies chronic smoking, but will smoke occasionally. Screenin:04 [facility] ED Fall Risk Assessment (Adult) History of falling in the last 3 months, kc6 including since admission Yes- single mechanical fall (1 pt) Confusion or Disorientation No (0 pts) Intoxicated or Sedated No (0 pts) Impaired Gait No (0 pts) Mobility Assist Device Used No (0 pt) Altered Elimination No (0 pt) Score/Fall Risk Level 0 - 2 = Low Risk. Abuse screen: Denies threats or abuse. Denies injuries from another. Nutritional screening: No deficits noted. Tuberculosis screening: No symptoms or risk factors identified. Assessment: 08:04 General: Appears in no apparent distress. comfortable, well groomed, well developed, kc6 Behavior is calm, cooperative, appropriate for age. Pain: Complains of pain in left foot Pain currently is 5 out of 10 on a pain scale. Neuro: Level of Consciousness is awake, alert, obeys commands, Oriented to person, place, time, situation, Appropriate for age. Cardiovascular: Capillary refill < 3 seconds. Respiratory: Airway is patent Trachea midline Respiratory effort is even, unlabored, Respiratory pattern is regular, symmetrical. GI: No signs and/or symptoms were reported involving the gastrointestinal system. : No signs and/or symptoms were reported regarding the genitourinary system. EENT: No signs and/or symptoms were reported regarding the EENT system. Derm: No signs and/or symptoms reported regarding the dermatologic system. Skin is intact, is healthy with good turgor, Skin is pink, warm \T\ dry. Musculoskeletal: Circulation, motion, and sensation intact. Capillary refill < 3 seconds, Range of motion: intact in all extremities. Vital Signs: 07:23 BP 120 / 82; Pulse 105; Resp 16; Temp 97.9; Pulse Ox 99% ; Weight 68.04 kg; Height 5 ll1 ft. 5 in. ; Pain 6/10; 07:23 Body Mass Index 24.96 (68.04 kg, 165.1 cm) ll1 07:23 Pain Scale: Adult ll1 ED Course: 07:15 Patient arrived in ED. im 07:16 Eduard Darden DO is Attending Physician. ms3 07:17 Arm band placed on Patient placed in an exam room, on a stretcher. ll1 07:25 Triage completed. ll1 07:44 Echo Barfield, RN is Primary Nurse. kc6 08:04 Patient has correct armband on for positive identification. Bed in low position. Call kc6 light in reach. Side rails up X 1. Adult w/ patient. Pulse ox on. NIBP on. Door closed. Noise minimized. Lights dimmed. Warm blanket given. Pillow given. 08:31 Foot Left 3 View XRAY In Process Unspecified. EDMS 08:45 Eric Hassan MD is Referral Physician. ms3 08:57 No provider procedures requiring assistance completed. Patient did not have IV access kc6 during this emergency room visit. Patient maintains SpO2 saturation greater than 95% on room air. Administered Medications: 07:57 Drug: Ibuprofen PO 600 mg PO once Route: PO; kc6 08:57 Follow up: Response: No adverse reaction; Pain is decreased kc6 Medication: 08:58 VIS not applicable for this client. kc6 Outcome: 08:46 Discharge ordered by . ms3 08:58 Discharged to home ambulatory, kc6 08:58 Condition: good 08:58 Discharge instructions given to patient, Instructed on discharge instructions, follow up and referral plans. medication usage, Demonstrated understanding of instructions, follow-up care, medications, Prescriptions given X 1, 08:58 Patient left the ED. kc6 Signatures: Dispatcher [employer] EDMS Priscilla Phillips, RN RN ll1 Eduard Darden DO DO ms3 Echo Barfield RN RN kc6 Lesley Argueta im
--- NOTE | 2023-10-26 08:47 | EDPHYS ---
Physician Documentation [facility] Name: Melissa Leavitt Age: 43 yrs Sex: Female : 1980 Arrival Date: 10/26/2023 Time: 07:09 Bed 20 Private MD: ED Physician Eduard Darden HPI: 10/25 10:48 This 43 yrs old Female presents to ER via Wheelchair with complaints of Foot Injury. ms3 10:48 43-year-old female with past medical history of anxiety and depression presents [place] [facility] [place] department for left foot pain after slipping and hitting her head on the corner of her bed. Patient states her discomfort is an 8/10 and worse with walking. Historical: - Allergies: 07:17 PENICILLINS; ll1 - PMHx: 07:17 anxiety/depression; ll1 - PSHx: 07:17 hysterectomy; ll1 - Immunization history:: Adult Immunizations up to date. - Infectious Disease History:: Denies. - Social history:: Smoking status: Patient reports the use of cigarette tobacco products, denies chronic smoking, but will smoke occasionally. ROS: 10:48 Constitutional: Negative for fever, and chills. Neck: Negative for injury, pain, and ms3 swelling, Cardiovascular: Negative for chest pain, and palpitations. Respiratory: Negative for shortness of breath, cough, wheezing, and pleuritic chest pain, Abdomen/GI: Negative for abdominal pain, nausea, vomiting, diarrhea, and constipation, 10:48 MS/extremity: Positive for pain, of the left foot, Exam: 10:48 Constitutional: This is a well developed, well nourished patient who is awake, alert, ms3 and in no acute distress. Neck: Trachea midline, no cervical lymphadenopathy. Supple, full range of motion without nuchal rigidity, or vertebral point tenderness. No Meningismus. Chest/axilla: Normal chest wall appearance and motion. Nontender with no deformity. Cardiovascular: Regular rate and rhythm with a normal S1 and S2. No gallops, murmurs, or rubs. Normal PMI, no JVD. No pulse deficits. Respiratory: Lungs have equal breath sounds bilaterally, clear to auscultation and percussion. No rales, rhonchi or wheezes noted. No increased work of breathing, no retractions or nasal flaring. Abdomen/GI: Soft, non-tender, with normal bowel sounds. No distension or tympany. No guarding or rebound. No evidence of tenderness throughout. 10:48 Musculoskeletal/extremity: Extremities: noted in the left foot: pain, tenderness, Vital Signs: 07:23 BP 120 / 82; Pulse 105; Resp 16; Temp 97.9; Pulse Ox 99% ; Weight 68.04 kg; Height 5 ll1 ft. 5 in. ; Pain 6/10; 07:23 Body Mass Index 24.96 (68.04 kg, 165.1 cm) ll1 07:23 Pain Scale: Adult ll1 MDM: 07:35 Patient medically screened. ms3 10:48 Differential diagnosis: fracture, sprain. Data reviewed: vital signs, nurses notes, ms3 radiologic studies, plain films. I considered the following discharge prescriptions or medication management in the emergency department Medications were administered in the Emergency Department. See MAR. Independent interpretation of the following test(s) in the Emergency Department X-Ray: My interpretation is X-ray left foot images reviewed by me do not reveal fracture. Counseling: I had a detailed discussion with the patient and/or guardian regarding the historical points, exam findings, and any diagnostic results supporting the discharge/admit diagnosis, radiology results, the need for outpatient follow up, to return to the emergency department if symptoms worsen or persist or if there are any questions or concerns that arise at home. Special discussion: I discussed with the patient/guardian in detail that at this point there is no indication for admission to the hospital. It is understood, however, that if the symptoms persist or worsen the patient needs to return immediately for re-evaluation. ED course: Discussed x-ray findings with patient. Patient to follow-up with Dr. Smiley in 2 to 3 days. Patient understands and agrees with plan. All questions were answered. Return precautions discussed include worsening symptoms, or any other concerns. On reevaluation patient's foot neurovascularly intact without signs of compartment syndrome. 10/25 07:35 Order name: Foot Left 3 View XRAY; Complete Time: 08:43 ms3 10/25 08:46 Order name: Post-op Orthopedic Shoe; Complete Time: 08:57 ms3 Administered Medications: 07:57 Drug: Ibuprofen PO 600 mg PO once Route: PO; kc6 08:57 Follow up: Response: No adverse reaction; Pain is decreased kc6 Disposition Summary: 10/26/23 08:46 Discharge Ordered Notes: Location: Home ms3 Condition: Stable ms3 Diagnosis - Pain in left foot ms3 Followup: ms3 - With: Eric Smiley MD - When: 2 - 3 days - Reason: Recheck today's complaints Discharge Instructions: - Discharge Summary Sheet ms3 - Foot Pain ms3 Forms: - Medication Reconciliation Form ms3 - Antibiotic Education ms3 - Prescription Opioid Use ms3 - Patient Portal Instructions ms3 - Leadership Thank You Letter ms3 Prescriptions: - Ibuprofen 600 mg Oral Tablet - take 1 tablet ORAL route every 6 hours As needed take with food; 30 tablet; ms3 Refills: 0, Product Selection Permitted Signatures: Dispatcher [employer] EDMS Priscilla Phillips, RN RN ll1 Eduard Darden DO DO ms3 Echo Barfield RN RN kc6
[2023-10-26 09:02] VITALS: BP 120/82; TEMP 97.9; O2SAT 99
== END 2023-10-26 08:58 | disposition home or self-care (01) ==
LOC: ER 07:09
DX: M79.672 Pain in left foot (principal)
CPT/HCPCS: 99283